=== PATIENT | male | born 1930 | race Caucasian/White ===

== ENCOUNTER → 2016-05-19 | Outpatient (CLI) | payer MEDICARE ==
[~2016-05-19] MED LIST: ACET325T38 PO; BICA50TA PO; CEFD300C3 PO; CEFU500T PO; CHOL10007 PO; CHOL20003 PO; CNC1KV IJ; DABI150C5 PO; NAPR500T3 PO; PRAV10TA PO
--- NOTE | 2016-05-22 12:40 | ECHOCARDIOGRAPHY REPORT ---
PROCEDURE PHYSICIAN: MAXIMILIANO STANLEY DATE OF PROCEDURE: 05/19/2016 TWO DIMENSIONAL ECHOCARDIOGRAM REPORT PRIMARY PHYSICIAN: Dr. Galvez OTHER PHYSICIAN: Dr. Stanley REFERRING PHYSICIAN: ORDERING PHYSICIAN: Radha Paul APRN INDICATION FOR THE PROCEDURE: Pulmonary hypertension, sinus node dysfunction, status post cardiac pacemaker. MEASUREMENTS DERIVED VALUES LV DIAMETER (LAX) NORMALS NORMALS Diastolic 3.7 (3.6-5.2) Eject. Fract. (60%+/-6%) Systolic (2.3-3.9) Diastolic Vol. % Shortening (0.22-0.42) Systolic Vol. Aortic Root 3.1 IVS THICKNESS Diastolic 0.7 (0.6-1.1) LVPW THICKNESS Diastolic 1. (0.6-1.1) LA DIAMETER Systolic 2.5 (2.1-3.7) DESCRIPTION: 2-dimensional echocardiography with normal global left ventricular systolic function with normal regional wall motion. There is no significant pericardial effusion. Doppler imaging shows trivial to mild tricuspid regurgitation. There is no Doppler evidence of any significant valvular stenosis. Pulmonary artery systolic pressure is estimated to be approximately 45 to 50 mmHg. Echodense structure in the right heart is consistent with pacemaker lead/leads. There is no evidence of significant intracardiac shunt on this transthoracic echocardiographic study. Inferior vena cava does not appear to be significantly dilated and does exhibit inspiratory collapse. CONCLUSION: 1. Normal global left ventricular systolic function with an ejection fraction of approximately 65%. 2. Trivial tricuspid regurgitation. 3. Pulmonary artery systolic pressure estimated to be 45 to 50 mmHg. 4. No evidence of significant valvular stenosis Job ID: [id number] Dictated Date: 05/22/2016 09:31:20 Cartographic Designer Date: 05/22/2016 12:32:48 / subha
== END ==
LOC: CARD 09:29
PROVIDERS: ATTEND Nurse Practitioner Family
DX: I27.2 Other secondary pulmonary hypertension (principal); I45.89 Other specified conduction disorders; I65.23 Occlusion and stenosis of bilateral carotid arteries; G47.33 Obstructive sleep apnea (adult) (pediatric); Z95.0 Presence of cardiac pacemaker
CPT/HCPCS: 93306

== ENCOUNTER 2016-05-22 14:23 | Inpatient (IN) | payer MEDICARE ==
[~2016-05-22] VITALS: Ht 162.6 cm; Wt 56.7 kg
[~2016-05-22 14:23] MED LIST changes: -BICA50TA PO; -CEFD300C3 PO; -CHOL10007 PO; -NAPR500T3 PO
[2016-05-22] MEDS ORDERED: guaiFENesin/CODEINE (ROBITUSSIN AC) 10ML UDC PO PRN (14:45)
[2016-05-22] MEDS ORDERED: HYDROcodone/APAP 5 MG/325 MG (LORTAB) TAB PO PRN (14:45)
[2016-05-22] MEDS ORDERED: ONDANSETRON 4 MG/2 ML (SDV) Z0FRAN IVP PRN (14:45)
[2016-05-22] MEDS ORDERED: LEVOFLOXACIN 750 MG/150 ML IV 150 ML IV SCH (14:45)
[2016-05-22] MEDS ORDERED: ACETAMINOPHEN 500 MG TAB (TYLENOL) PO PRN (14:45)
[2016-05-22] MEDS ORDERED: ALPRAZolam 0.25 MG (XANAX) TAB PO PRN (14:45)
[2016-05-22] MEDS ORDERED: fentaNYL INJECTION 100 MCG/2 ML AMP IVP PRN (14:45)
[2016-05-22 15:00] VITALS: BP 130/85
[2016-05-22 15:49] LABS: BASOPHILS % (AUTO) 0 % (0-10); EOSINOPHILS % (AUTO) 6 % (0-10); LYMPHOCYTES # (AUTO) 1.8 X 10^3 (1.0-4.0); LYMPHOCYTES % (AUTO) 10 % (12-44); MEAN CORPUSCULAR HEMOGLOBIN 29 PG (25-34); MEAN CORPUSCULAR HGB CONC 32 G/DL (32-36); MEAN CORPUSCULAR VOLUME 90 FL (80-99); MEAN PLATELET VOLUME 11.5 FL (7.4-10.4); MONOCYTES # (AUTO) 0.8 X 10^3 (0.0-1.0); MONOCYTES % (AUTO) 4 % (0-12); NEUTROPHILS # (AUTO) 13.9 X 10^3 (1.8-7.8); NEUTROPHILS % (AUTO) 80 % (42-75); PLATELET COUNT 275 10^3/uL (130-400); RED BLOOD COUNT 4.46 10^6/uL (4.35-5.85); WHITE BLOOD COUNT 17.5 10^3/uL (4.3-11.0)
[2016-05-22] MEDS ORDERED: CHOL10007 PO (15:49)
[2016-05-22] MEDS ORDERED: BICA50TA PO (15:49)
[2016-05-22] MEDS ORDERED: NAPR500T3 PO (15:52)
[2016-05-22 16:02] LABS: ALANINE AMINOTRANSFERASE 22 U/L (0-55); ALBUMIN 3.4 G/DL (3.2-4.5); ANION GAP 9 MMOL/L (5-14); ASPARTATE AMINO TRANSFERASE 24 U/L (5-34); BILIRUBIN,TOTAL 0.6 MG/DL (0.1-1.0); BLOOD UREA NITROGEN 18 MG/DL (7-18); BUN/CREATININE RATIO 20; CALCIUM 8.9 MG/DL (8.5-10.1); CARBON DIOXIDE 25 MMOL/L (21-32); CHLORIDE 98 MMOL/L (98-107); CREATININE SERUM 0.88 MG/DL (0.60-1.30); GFR ESTIMATED > 60; GLUCOSE 90 MG/DL (70-105); POTASSIUM 4.3 MMOL/L (3.6-5.0); SODIUM 132 MMOL/L (135-145); TOTAL PROTEIN 7.1 G/DL (6.4-8.2)
[2016-05-22 16:07] LABS: TROPONIN I < 0.30 NG/ML (<0.30)
[2016-05-22 16:14] LABS: BAND NEUTROPHILS 0 %; BASOPHILS % (MANUAL) 0 %; EOSINOPHILS % (MANUAL) 10 %; LYMPHOCYTES % (MANUAL) 12 %; NEUTROPHILS % (MANUAL) 76 %
[2016-05-22] MEDS: RT-BUDESONIDE NEBS 0.5 MG/2ML (PULMICORT) AMP INH SCH ×2 (16:20→19:23)
--- NOTE | 2016-05-22 16:31 | Diagnostic Imaging Report ---
EXAMINATION: PA and lateral views of the chest. INDICATION: Shortness of breath. FINDINGS: The lungs are hyperinflated. There is questionable nodular density in the right suprahilar region. There are prominent interstitial markings similar to prior exam of 12/04/2015 exam. No focal consolidation. The heart size is normal. No effusion or pneumothorax. The mediastinum and matthew appear unremarkable. There is a cardiac pacer seen with two cardiac leads. IMPRESSION: Findings of COPD and chronic appearing interstitial thickening. Questionable right suprahilar density is seen. CT evaluation is suggested to rule out an underlying nodule. Dictated by: Dictated on workstation # [id number]
[2016-05-22 16:35] LABS: ABG BASE EXCESS 0.3 MMOL/L (-2.5-2.5); ABG HCO3 25 MMOL/L (23-27); ABG OXYGEN SATURATION 92 % (94-100); ABG PCO2 39 MMHG (35-45); ABG PH 7.42 (7.37-7.43); ABG PO2 60 MMHG (79-93); ABG TCO2 25.8 MMOL/L (21.0-31.0)
[2016-05-22 16:36] LABS: ALLENS TEST YES-POS; PATIENT TEMP 98.9
[2016-05-22] MEDS ORDERED: CATHETER FLUSH 10 ML SYR IV PRN (16:45)
[2016-05-22] MEDS: NS IV 1000 ML 1,000 ML IV SCH (17:08)
[2016-05-22] MEDS ORDERED: PATIENT MAY USE OWN MEDS, ALL MC SCH (18:15)
[2016-05-22] MEDS: RT-ALBUTEROL/IPRATROPIUM 3 ML (DUONEB) VIAL INH SCH ×2 (19:23→23:29)
[2016-05-22] MEDS: DABIGATRAN 150 MG (PRADAXA) CAPSULE PO SCH (20:45)
[2016-05-22] MEDS: SIMvastatin 10 MG (ZOCOR) TAB PO SCH (20:45)
[2016-05-22] MEDS: CEFEPIME INJECTION 2,000 MG in NS (IVPB) 50 ML IV SCH (20:45)
[2016-05-22] MEDS: SENNA W/DOCUSATE (SENOKOT S) TABLET PO SCH (20:45)
[2016-05-22 20:54] VITALS: BP 93/51
[2016-05-22] MEDS ORDERED: NON-FORMULARY MEDICATION 1 EA EA (Pravastatin Sodium 10 MG) PO SCH (21:00)
[2016-05-23] VITALS (7 sets, daily range): BP systolic 78–108; BP diastolic 40–64
[2016-05-23] MEDS: NS IV 1000 ML 1,000 ML IV SCH ×2 (00:44→03:52)
[2016-05-23] MEDS ORDERED: NS IV 1000 ML 1,000 ML IV ONE (00:45)
[2016-05-23] MEDS: RT-ALBUTEROL/IPRATROPIUM 3 ML (DUONEB) VIAL INH SCH ×6 (01:57→22:37)
[2016-05-23 06:06] LABS: BASOPHILS % (AUTO) 0 % (0-10); EOSINOPHILS # (AUTO) 0.7 10^3/uL (0.0-0.3); EOSINOPHILS % (AUTO) 5 % (0-10); LYMPHOCYTES # (AUTO) 1.7 X 10^3 (1.0-4.0); LYMPHOCYTES % (AUTO) 13 % (12-44); MEAN CORPUSCULAR HEMOGLOBIN 29 PG (25-34); MEAN CORPUSCULAR HGB CONC 32 G/DL (32-36); MEAN CORPUSCULAR VOLUME 91 FL (80-99); MEAN PLATELET VOLUME 11.9 FL (7.4-10.4); MONOCYTES # (AUTO) 0.6 X 10^3 (0.0-1.0); MONOCYTES % (AUTO) 5 % (0-12); NEUTROPHILS # (AUTO) 9.5 X 10^3 (1.8-7.8); NEUTROPHILS % (AUTO) 76 % (42-75); PLATELET COUNT 248 10^3/uL (130-400); RED CELL DISTRIBUTION WIDTH 13.9 % (10.0-14.5); WHITE BLOOD COUNT 12.5 10^3/uL (4.3-11.0)
[2016-05-23 06:29] LABS: ALANINE AMINOTRANSFERASE 19 U/L (0-55); ALBUMIN 2.7 G/DL (3.2-4.5); ANION GAP 10 MMOL/L (5-14); ASPARTATE AMINO TRANSFERASE 23 U/L (5-34); BILIRUBIN,TOTAL 0.3 MG/DL (0.1-1.0); BLOOD UREA NITROGEN 15 MG/DL (7-18); BUN/CREATININE RATIO 19; CALCIUM 7.9 MG/DL (8.5-10.1); CARBON DIOXIDE 20 MMOL/L (21-32); CHLORIDE 106 MMOL/L (98-107); CREATININE SERUM 0.81 MG/DL (0.60-1.30); GFR ESTIMATED > 60; GLUCOSE 91 MG/DL (70-105); POTASSIUM 4.1 MMOL/L (3.6-5.0); SODIUM 136 MMOL/L (135-145); TOTAL PROTEIN 5.5 G/DL (6.4-8.2)
[2016-05-23] MEDS ORDERED: NAPROXEN 250 MG (NAPROSYN) TABLET PO PRN (07:00)
[2016-05-23] MEDS: RT-BUDESONIDE NEBS 0.5 MG/2ML (PULMICORT) AMP INH SCH ×2 (07:16→18:23)
[2016-05-23] MEDS ORDERED: IOHEXOL 350 MG/ML 100 ML (OMNIPAQUE 350) VIAL IV ONE (07:45)
[2016-05-23] MEDS ORDERED: NS 100 ML (IVPB) BAG IV ONE (07:45)
[2016-05-23] MEDS: DABIGATRAN 150 MG (PRADAXA) CAPSULE PO SCH ×2 (08:32→20:54)
[2016-05-23] MEDS: VITAMIN D3 1,000 UNITS (CHOLECALCIFEROL) TABLET PO SCH (08:32)
[2016-05-23] MEDS: SENNA W/DOCUSATE (SENOKOT S) TABLET PO SCH ×2 (08:32→20:54)
[2016-05-23] MEDS: BICALUTAMIDE 50 MG TAB PO SCH (08:33)
[2016-05-23] MEDS: CEFEPIME INJECTION 2,000 MG in NS (IVPB) 50 ML IV SCH (08:33)
--- NOTE | 2016-05-23 08:50 | Diagnostic Imaging Report ---
PROCEDURE: CT chest with contrast only. TECHNIQUE: Multiple contiguous axial images were obtained through the chest after administration of intravenous contrast. INDICATION: Right upper lobe pulmonary nodule. 75 mL of Omnipaque 350 is administered intravenously. FINDINGS: There is emphysema with diffuse interstitial thickening and scarring in the lungs. Mild bronchiectasis is seen in the lung bases. There is a right upper lobe irregular nodule measuring 1.3 cm in the right suprahilar region. There is an irregular nodular density also seen anteriorly in the right upper lobe measuring 1.3 cm. There are multiple subcentimeter nodular densities seen also in the lungs mostly in the lung bases. Given the background extensive scarring, these could be related to scarring. There is also subpleural focal consolidation in the medial aspect of the right upper lobe with maximum axial measurements of 2.5 x 1.3 cm. This could also be related to atelectasis or scarring. There are prominent bullae seen in the right lung base. The thoracic aorta is normal in caliber. The heart size is normal. There is a pacemaker with two leads seen. No pericardial effusion. There are bilateral tiny pleural effusions. Pleural parenchymal thickening and scarring in the lung apices is also noted. There is lymphadenopathy in the right hilum measuring 2.2 cm and an infracarinal lymph node measuring 1.4 cm. A mildly enlarged left hilar node measuring 1.0 cm is also seen. These measurements are all in short axis. No axillary lymphadenopathy seen. Sections of the upper abdomen demonstrate simple-appearing renal cyst in the upper pole of the left kidney. The osseous structures appear grossly unremarkable. IMPRESSION: There is background emphysema and interstitial scarring seen diffusely in the lungs with multiple nodular densities, mostly related to scarring. Most concerning, however, is an irregular nodule measuring 1.3 cm in the right upper lobe suprahilar region. There is also hilar and mediastinal lymphadenopathy. Further evaluation with PET/CT is recommended. Dictated by: Dictated on workstation # [id number]
[2016-05-23] MEDS ORDERED: NON-FORMULARY MEDICATION 1 EA EA (Cholecalciferol (Vitamin D3) (Vitamin D3) 1,000 UNIT) PO SCH (09:00)
--- NOTE | 2016-05-23 11:21 | History & Physical-Hospitalist ---
HPI History of Present Illness: HPI/Chief Complaint CC: Pneumonia HPI: This is an 85[address]WM pt of Dr. Galvez'kyle that I directly admitted by the one- call system. He presented to his office with fever of 102 at home and SOB. He recently was started Lupron for prostate CA by Dr. Chance's office but remained Pradaxa for AF so suspicion was not PE but pneumonia. Admission WBC was 17.5, today it is 12.5. Hgb from 13 to 9.7 Na+ was 132 now 136. They did call me in the middle of the night for hypotension that was asymptomatic at 0300. I gave 1L of IV fluid and increased his maintenance fluid to 125 cc's. CXR revealed likely infiltrate but there was a nodule and considering his prostate CA I obtained CT chest today that revealed emphysema with multiple nodular densities likely scarring but there is an irregular nodule in the right upper lobe. Chart Review: Reviewed all imaging scans including abdomen/pelvis CT dated 12/03/15: .9cm nodule in RLL likely ATX so no CT chest done but also reviewed bone scan dated revealing no bone mets. No prior CT chest. Dr. Gomez Review: Dr. Simon consults with Dr. Gomez regarding newly discovered lung mass. Dr. Gomez will see pt over the weekend or on Thursday. Patient Interview: Pt states that recent injection from Dr. Chance is his first. Dr. Chance has been managing pt's prostate CA alone. Pt states that he urinated this morning and has been trying to drink more water. Dr. Simon informs pt of CT chest results regarding lung mass that may be related to pt's hx of prostate CA. Dr. Simon informs pt that she has consulted with Dr. Gomez. Dr. Simon suggests a consultation with an oncologist, and pt agrees. Pt has no preference. Pt states that he quit smoking in 1982. 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 Pt's favorite instrument is the viola, although he is trained in most others as well. Pt states that BP normally runs low. Pt sees Dr. Stanley for Cardiology regularly, and he visited pt earlier today. Physical exam was stable. Pt denies need for pain meds currently. Pt was able to eat breakfast without complications. Dr. Simon informs pt that he will likely stay at [facility] over the weekend. Pt sees Dr. Gomez every 6 months regarding CPAP. Pt has an appointment with Dr. Gomez at 9:45 Thursday morning. Scribed by Mike Rodrigez under the direct supervision of Dr. Simon. 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 at [employer]) Alcohol Use: Occasionally Uses Recreational Drug Use: No Smoking Status: Former Smoker (quit in 1982) Physical Abuse Screen: No Sexual Abuse: No Recent Foreign Travel: No Contact w/other who traveled: No Recent Hopitalizations: No Recent Infectious Disease Expo: No Immunizations Up To Date Date of Pneumonia Vaccine: Jan 18, 2009 Date of Influenza Vaccine: Feb 18, 2016 Seasonal Allergies Seasonal Allergies: Yes (no medication ) Surgeries HX Surgeries: Yes Respiratory Hx Respiratory Disorders: Yes Respiratory Disorders: COPD, Emphysema, Sleep Apnea Cardiovascular Hx Cardiovascular Disorders: Yes (SINUS NODE DYSFUNCTION) Cardiac Disorders: Atrial Fibrillation, High Cholesterol, Hypertension, Irregular Heartbeat Neurological Hx Neurological Disorders: No Reproductive System Hx Reproductive Disorders: Yes (PROSTSTE SURGERY LEFT PT IMPOTENT) Genitourinary Hx Genitourinary Disorders: Yes Genitourinary Disorders: Prostate Problems (prostate cancer managed by Dr. Chance) Gastrointestinal Hx Gastrointestinal Disorders: No Musculoskeletal Hx Musculoskeletal Disorders: Yes Musculoskeletal Disorders: Chronic Back Pain Endocrine Hx Endocrine Disorders: No HEENT HX ENT Disorders: No Cancer Hx Cancer: Yes Cancer: Prostate Psychosocial Hx Psychiatric Problems: No Blood Transfusions Hx Blood Disorders: No Family Medical History Family Hx: Patient reports no known family medical history. Review of Systems Constitutional: see HPI chills dizziness fever malaise weakness EENTM: no symptoms reported Respiratory: cough short of breath wheezing Cardiovascular: no symptoms reported Gastrointestinal: no symptoms reported Genitourinary: no symptoms reported Musculoskeletal: back pain Skin: no symptoms reported Psychiatric/Neurological: Depressed All Other Systems Reviewed Negative Unless Noted: Yes Physical Exam Physical Exam Vital Signs Vital Sign - Last 12Hours 05/22/16 05/22/16 05/22/16 15:00 19:00 19:23 Temp 98.9 Pulse 80 Resp 18 B/P 130/85 Pulse Ox 96 O2 Delivery Room Air O2 Flow Rate 2.00 Capillary Refill : General Appearance: No Apparent Distress WD/WN Chronically ill Cachetic Eyes: Bilateral Eye Normal Inspection, Bilateral Eye PERRL HEENT: PERRL/EOMI Normal ENT Inspection Pharynx Normal Neck: Full Range of Motion Normal Inspection Non Tender Supple Carotid Bruit Respiratory: Chest Non Tender No Accessory Muscle Use No Respiratory Distress Crackles Decreased Breath Sounds Wheezing Cardiovascular: Regular Rate, Rhythm No Edema No Gallop No JVD No Murmur Normal Peripheral Pulses Gastrointestinal: Normal Bowel Sounds No Organomegaly No Pulsatile Mass Non Tender Soft Back: Normal Inspection No CVA Tenderness No Vertebral Tenderness Extremity: Normal Capillary Refill Normal Inspection Normal Range of Motion Non Tender No Calf Tenderness No Pedal Edema Neurologic/Psychiatric: Alert Oriented x3 No Motor/Sensory Deficits Normal Mood/Affect Skin: Normal Color Warm/Dry Lymphatic: No Adenopathy Results Results/Procedures Lab Laboratory Tests 05/22/16 15:35 05/23/16 05:44 Assessment/Plan Admission Diagnosis Assessment: Post-obstructive pneumonia with fever and leukocytosis New long nodule 1.5 cm in COPD pt previous smoker Prostate CA just recently started on Lupron AF Pacemaker Anemia Hypoxia of PaO2 60 Hyponatremia Low albumin 2.7 JERMAINE Assessment and Plan Plan: Consult Drs. Gomez and Umer Maintain IV antibiotics Maintain nebulizer treatments Maintain IV fluid Check labs in a.m. Maintain oxygen Maintain sleep apnea machine Maintain Pradaxa Clinical Quality Measures DVT/VTE Risk/Contraindication: Risk Factor Score Per Nursin RFS Level Per Nursing on Admit: 3=High NAYE SIMON DO May 23, 2016 11:21
--- NOTE | 2016-05-23 12:35 | Consultation-Cardiology ---
HPI-Cardiology Cardiology Consultation: Date of Consultation 05/23/16 Date of Admission 05-22-16 Attending Physician Naye Simon DO Admitting Physician Harrison Galvez DO Consulting Physician Khai Stanley MD HPI: Chief Complaint: Dyspnea Mr. Ma is an 85 year old admitted to 424 from the ED d/t increasing shortness of breath with associated fever and chills. He does not report any CP , palpitations, syncope or near syncope. No n/v/d. No LE edema. He reports he feels better this morning. Review of Systems-Cardiology Review of Systems Constitutional: As described under HPI Eyes: No blurred vision, No drainage, No pain, No vision change Ears/Nose/Throat: No ear discharge, No ear pain, No nasal drainage, No ulcerations Respiratory: As described under HPI Cardiovascular: As described under HPI Gastrointestinal: No constipation, No diarrhea, No nausea, No vomiting, No stool coloration changes Genitourinary: No dysuria, No discharge, No frequency, No hematuria, No urgency Skin: No rash, No skin related problems, No ulcerations Psychiatric/Neurological: No anxiety, No depression, No focal weakness, No seizure, No syncope Hematologic: No bleeding abnormalities All Other Systems Reviewed Negative Unless Noted: Yes EFO-Nwksio-Ekqttk Hx Patient Social History Marrital Status: 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 Family Medical History Family History: Patient reports no known family medical history. Allergies and Home Medications Allergies Coded Allergies: No Known Drug Allergies (Verified Allergy, Unknown, 05/08/09) Uncoded Allergies: NKDA (Allergy, Mild, 05/07/09) Home Medications Bicalutamide 50 Mg Tablet 50 MG PO DAILY (Reported) Cholecalciferol (Vitamin D3) 1,000 Unit Capsule 1,000 UNIT PO DAILY (Reported) Cyanocobalamin 1,000 Mcg/Ml Inj 1,000 MCG IJ MONTHLY (Reported) Dabigatran Etexilate Mesylate 150 Mg Capsule 150 MG PO BID (Reported) Naproxen 500 Mg Tablet 500 MG PO BID (Reported) Pravastatin Sodium 10 Mg Tablet 10 MG PO HS (Reported) CURRENTLY ON HOLD DUE TO OTHER HEALTH CONDITIONS Physical Exam-Cardiology Physical Exam Vital Signs/I&O Vital Sign - Last 12Hours 05/23/16 05/23/16 05/23/16 05/23/16 04:00 07:17 07:21 08:00 Temp 97.6 98.6 Pulse 89 99 Resp 18 22 B/P 94/57 89/46 Pulse Ox 92 88 88 94 O2 Delivery Room Air Room Air O2 Flow Rate 1.00 1.00 05/23/16 12:00 Temp 99.1 Pulse 89 Resp 20 B/P 96/50 Pulse Ox 93 O2 Delivery Room Air Intake and Output 05/23/16 00:00 Intake Total 690 ml Balance 690 ml Capillary Refill : Constitutional: appears stated ageNo apparent distress, well-developed well- nourished HEENT: PERRLNo discharge, hearing is well preserved oral hygience is goodNo ulceration, No xanthelasmas are seen Neck: No carotid bruit, carotid pulses are 2 + bilaterally Respiratory: No accessory muscle use, No respiratory distress, chest expansion is symmetric chest is bilaterally symmetric other (diminished bases bilat) Cardiovascular: regular rate-rhythm S1 and S2 Gastrointestinal: No tender, soft roundNo spleenomegaly Extremities: No clubbing, No cyanosis, No significant edema Neurologic/Psychiatric: alert oriented x 3 power is 5/5 both on sides Skin: No rash, No ulcerations Data Review Labs Laboratory Tests 05/22/16 15:30: Lactic Acid Level 1.3 05/22/16 15:35: Alanine Aminotransferase (ALT/SGPT) 22, Albumin 3.4, Alkaline Phosphatase 90, Anion Gap 9, Aspartate Amino Transf (AST/SGOT) 24, BUN/Creatinine Ratio 20, Band Neutrophils 0, Basophils # (Auto) 0.0, Basophils % (Manual) 0, Basophils (% ) (Auto) 0, Blood Morphology Comment NORMAL, Blood Urea Nitrogen 18, Calcium Level 8.9, Carbon Dioxide Level 25, Chloride Level 98, Creatinine 0.88, Eosinophils # (Auto) 1.0H, Eosinophils % (Manual) 10, Eosinophils (%) (Auto) 6, Estimat Glomerular Filtration Rate > 60, Glucose Level 90, Hematocrit 40, Hemoglobin 13.0L, Lymphocytes # (Auto) 1.8, Lymphocytes % (Manual) 12, Lymphocytes (%) (Auto) 10L, Mean Corpuscular Hemoglobin 29, Mean Corpuscular Hemoglobin Concent 32, Mean Corpuscular Volume 90, Mean Platelet Volume 11.5H, Monocytes # (Auto) 0.8, Monocytes % (Manual) 2, Monocytes (%) (Auto) 4, Neutrophils # (Auto) 13.9H, Neutrophils % (Manual) 76, Neutrophils (%) (Auto) 80H, Platelet Count 275, Potassium Level 4.3, Red Blood Count 4.46, Red Cell Distribution Width 14.0, Sodium Level 132L, Total Bilirubin 0.6, Total Protein 7.1, Troponin I < 0.30, White Blood Count 17.5H 05/22/16 16:23: Marciano Test YES-POS, Arterial Blood Base Excess 0.3, Arterial Blood HCO3 25, Arterial Blood Oxygen Saturation 92L, Arterial Blood Partial Pressure CO2 39, Arterial Blood Partial Pressure O2 60L, Arterial Blood Total CO2 25.8, Arterial Blood pH 7.42, Blood Gas Inspired Oxygen ROOM AIR, Blood Gas Patient Temperature 98.9, Blood Gas Puncture Site LT RAD, Blood Gas Ventilator Setting NO 05/23/16 05:44: Alanine Aminotransferase (ALT/SGPT) 19, Albumin 2.7L, Alkaline Phosphatase 72, Anion Gap 10, Aspartate Amino Transf (AST/SGOT) 23, BUN/Creatinine Ratio 19, Basophils # (Auto) 0.0, Basophils (%) (Auto) 0, Blood Urea Nitrogen 15, Calcium Level 7.9L, Carbon Dioxide Level 20L, Chloride Level 106, Creatinine 0.81, Eosinophils # (Auto) 0.7H, Eosinophils (%) (Auto) 5, Estimat Glomerular Filtration Rate > 60, Glucose Level 91, Hematocrit 30L, Hemoglobin 9.7#L, Lymphocytes # (Auto) 1.7, Lymphocytes (%) (Auto) 13, Mean Corpuscular Hemoglobin 29, Mean Corpuscular Hemoglobin Concent 32, Mean Corpuscular Volume 91, Mean Platelet Volume 11.9H, Monocytes # (Auto) 0.6, Monocytes (%) (Auto) 5, Neutrophils # (Auto) 9.5H, Neutrophils (%) (Auto) 76H, Platelet Count 248, Potassium Level 4.1, Red Blood Count 3.30L, Red Cell Distribution Width 13.9, Sodium Level 136, Total Bilirubin 0.3, Total Protein 5.5L, White Blood Count 12.5H Radiology NAME: GERMAN MA [facility] REC#: [id number] PT STATUS: ADM IN : 1930 PHYSICIAN: NAYE SIMON DO ADMIT DATE: 05/22/16 Signed Date of Exam: 05/23/16 CT CHEST W PROCEDURE: CT chest with contrast only. TECHNIQUE: Multiple contiguous axial images were obtained through the chest after administration of intravenous contrast. INDICATION: Right upper lobe pulmonary nodule. 75 mL of Omnipaque 350 is administered intravenously. FINDINGS: There is emphysema with diffuse interstitial thickening and scarring in the lungs. Mild bronchiectasis is seen in the lung bases. There is a right upper lobe irregular nodule measuring 1.3 cm in the right suprahilar region. There is an irregular nodular density also seen anteriorly in the right upper lobe measuring 1.3 cm. There are multiple subcentimeter nodular densities seen also in the lungs mostly in the lung bases. Given the background extensive scarring, these could be related to scarring. There is also subpleural focal consolidation in the medial aspect of the right upper lobe with maximum axial measurements of 2.5 x 1.3 cm. This could also be related to atelectasis or scarring. There are prominent bullae seen in the right lung base. The thoracic aorta is normal in caliber. The heart size is normal. There is a pacemaker with two leads seen. No pericardial effusion. There are bilateral tiny pleural effusions. Pleural parenchymal thickening and scarring in the lung apices is also noted. There is lymphadenopathy in the right hilum measuring 2.2 cm and an infracarinal lymph node measuring 1.4 cm. A mildly enlarged left hilar node measuring 1.0 cm is also seen. These measurements are all in short axis. No axillary lymphadenopathy seen. Sections of the upper abdomen demonstrate simple-appearing renal cyst in the upper pole of the left kidney. The osseous structures appear grossly unremarkable. IMPRESSION: There is background emphysema and interstitial scarring seen diffusely in the lungs with multiple nodular densities, mostly related to scarring. Most concerning, however, is an irregular nodule measuring 1.3 cm in the right upper lobe suprahilar region. There is also hilar and mediastinal lymphadenopathy. Further evaluation with PET/CT is recommended. Dictated by: Dictated on workstation # [id number] Dict: 05/23/16 0831 Trans: 05/23/16 0944 [id number] Interpreted by: EDWIN SERRANO MD Electronically signed by:EDWIN SERRANO MD 05/23/16 0946 A/P-Cardiology Assessment/Admission Diagnosis Pneumonia - management per medical services Irregular nodule measuring 1.3 cm in the right upper lobe suprahilar region. There is also hilar and mediastinal lymphadenopathy seen on CT of the chest . Management per medical services Sinus node dysfunction. Some pacemaker interrogations have been suggestive of brief runs of atrial flutter/fib Symptomatic bradycardia, resolved following implantation of dual-chamber pacemaker in April 2009. The pacemaker has reached NUVIA per interrogation and pulse generator change out was carried out on 12-04-15 No evidence of any significant myocardial ischemia or infarction on myocardial perfusion imaging of 06/11/2009. Left ventricular systolic function was normal with an ejection fraction of 73%. Moderate pulmonary HTN, PASP 50-55 mmHg on echo of November 2013, of undetermined etiology. Repeat echo of 05/22/14 showed LVEF 60% and PASP 60 mmHg and mod TR and mild MR. This is being followed by Dr Gomez Chronically high atrial capture threshold . Hyperlipidemia, being treated with pravastatin Mild carotid arterial disease on ultrasonography of November 2015. OAC with dabigatran for stroke prophylaxis Obstructive sleep apnea syndrome followed by Dr Gomez. Pt on CPAP Prostate cancer being managed by Dr. Chance Discussion and Recomendations Cardiac status clinically stable. Management of pneumonia per medication services. Lung nodule seen on CT of the chest to be managed by medical services. Continue current cardiac regimen. Monitor lab. Further recommendations will be based on his hospital course. We would like to thank Dr. Simon for this consult. This consult is being scribed by MICHAEL Rock on behalf of Dr. Stanley after examination and discussion regarding plan of care. Clinical Quality Measures DVT/VTE Risk/Contraindication: Risk Factor Score Per Nursin RFS Level Per Nursing on Admit: 3=High Physician Assessment Physician Assessment Lungs: fair to good air entry Cor: reg A&R As documented in our note above Complex management due to multiple comorbidities I had a detailed discussion with him and answered questions MARYCRUZ THOMAS PAINTING WORKER May 23, 2016 12:35 KHAI STANLEY MD FACP FAC CCDS May 23, 2016 14:49
[2016-05-23] MEDS: NS IV SCH ×4 (12:45→20:57)
[2016-05-23] MEDS: KCL IV SCH ×4 (12:45→20:57)
[2016-05-23] MEDS: SIMvastatin 10 MG (ZOCOR) TAB PO SCH (20:54)
[2016-05-24] VITALS: BP 91/51
[2016-05-24] MEDS: RT-ALBUTEROL/IPRATROPIUM 3 ML (DUONEB) VIAL INH SCH ×6 (02:26→22:01)
[2016-05-24 04:00] VITALS: BP 104/64
[2016-05-24 05:36] LABS: BASOPHILS % (AUTO) 0 % (0-10); EOSINOPHILS # (AUTO) 1.1 10^3/uL (0.0-0.3); EOSINOPHILS % (AUTO) 12 % (0-10); LYMPHOCYTES # (AUTO) 1.7 X 10^3 (1.0-4.0); LYMPHOCYTES % (AUTO) 17 % (12-44); MEAN CORPUSCULAR HEMOGLOBIN 29 PG (25-34); MEAN CORPUSCULAR HGB CONC 32 G/DL (32-36); MEAN CORPUSCULAR VOLUME 90 FL (80-99); MEAN PLATELET VOLUME 11.8 FL (7.4-10.4); MONOCYTES # (AUTO) 0.6 X 10^3 (0.0-1.0); MONOCYTES % (AUTO) 6 % (0-12); NEUTROPHILS # (AUTO) 6.5 X 10^3 (1.8-7.8); NEUTROPHILS % (AUTO) 65 % (42-75); PLATELET COUNT 227 10^3/uL (130-400); RED BLOOD COUNT 3.67 10^6/uL (4.35-5.85); RED CELL DISTRIBUTION WIDTH 14.2 % (10.0-14.5); WHITE BLOOD COUNT 9.9 10^3/uL (4.3-11.0)
[2016-05-24 05:56] LABS: ALANINE AMINOTRANSFERASE 21 U/L (0-55); ALBUMIN 2.6 G/DL (3.2-4.5); ANION GAP 10 MMOL/L (5-14); ASPARTATE AMINO TRANSFERASE 25 U/L (5-34); BILIRUBIN,TOTAL 0.3 MG/DL (0.1-1.0); BLOOD UREA NITROGEN 13 MG/DL (7-18); BUN/CREATININE RATIO 18; CALCIUM 7.7 MG/DL (8.5-10.1); CARBON DIOXIDE 21 MMOL/L (21-32); CHLORIDE 108 MMOL/L (98-107); CREATININE SERUM 0.74 MG/DL (0.60-1.30); GFR ESTIMATED > 60; GLUCOSE 86 MG/DL (70-105); POTASSIUM 3.9 MMOL/L (3.6-5.0); SODIUM 139 MMOL/L (135-145); TOTAL PROTEIN 5.4 G/DL (6.4-8.2)
[2016-05-24] MEDS: NS IV SCH ×4 (07:07→22:03)
[2016-05-24] MEDS: KCL IV SCH ×4 (07:07→22:03)
[2016-05-24] MEDS: RT-BUDESONIDE NEBS 0.5 MG/2ML (PULMICORT) AMP INH SCH ×2 (07:53→18:53)
[2016-05-24 08:00] VITALS: BP 98/56
[2016-05-24] MEDS: VITAMIN D3 1,000 UNITS (CHOLECALCIFEROL) TABLET PO SCH (09:26)
[2016-05-24] MEDS: CEFEPIME INJECTION 2,000 MG in NS (IVPB) 50 ML IV SCH (09:26)
[2016-05-24] MEDS: DABIGATRAN 150 MG (PRADAXA) CAPSULE PO SCH ×2 (09:26→20:56)
[2016-05-24] MEDS: SENNA W/DOCUSATE (SENOKOT S) TABLET PO SCH ×2 (09:26→20:56)
[2016-05-24] MEDS: BICALUTAMIDE 50 MG TAB PO SCH (09:26)
[2016-05-24] MEDS: LEVOFLOXACIN 750 MG/150 ML IV 150 ML IV SCH (11:57)
[2016-05-24 12:00] VITALS: BP 98/48
[2016-05-24 16:00] VITALS: BP 95/52
--- NOTE | 2016-05-24 16:52 | Progress Note-Cardiology ---
Cardiology SOAP Progress Note Subjective: Feels a little less short of breath and a little stronger Denies cp or palp or syncope Objective: I&O/Vital Signs Vital Sign - Last 12Hours 05/24/16 05/24/16 05/24/16 05/24/16 07:00 07:53 07:55 08:00 Pulse 87 Pulse Ox 93 93 94 O2 Delivery Room Air O2 Flow Rate 1.00 1.00 05/24/16 05/24/16 05/24/16 05/24/16 08:00 11:00 12:00 13:00 Temp 98.3 98.1 Pulse 88 84 83 Resp 18 16 B/P 98/56 98/48 Pulse Ox 94 92 95 O2 Delivery Room Air Room Air O2 Flow Rate 1.00 05/24/16 14:43 Pulse Ox 98 O2 Flow Rate 1.00 Intake and Output 05/24/16 00:00 Intake Total 3000 ml Balance 3000 ml Weight (Pounds): 125 Weight (Ounces): 0.0 Weight (Calculated Kilograms): 56.634050 Constitutional: appears stated ageNo apparent distress, well-developed well- nourished Respiratory: No accessory muscle use, No respiratory distress, chest expansion is symmetric chest is bilaterally symmetric other (diminished bases bilat) Cardiovascular: regular rate-rhythm S1 and S2 Gastrointestional: No tender, soft roundNo spleenomegaly Extremities: No clubbing, No cyanosis, No significant edema Neurologic/Psychiatric: alert oriented x 3 power is 5/5 both on sides Skin: No rash, No ulcerations Results/Procedures: Labs Laboratory Tests 05/24/16 05:00: Alanine Aminotransferase (ALT/SGPT) 21, Albumin 2.6L, Alkaline Phosphatase 73, Anion Gap 10, Aspartate Amino Transf (AST/SGOT) 25, BUN/Creatinine Ratio 18, Basophils # (Auto) 0.0, Basophils (%) (Auto) 0, Blood Urea Nitrogen 13, Calcium Level 7.7L, Carbon Dioxide Level 21, Chloride Level 108H, Creatinine 0.74, Eosinophils # (Auto) 1.1H, Eosinophils (%) (Auto) 12H, Estimat Glomerular Filtration Rate > 60, Glucose Level 86, Hematocrit 33L, Hemoglobin 10.7L, Lymphocytes # (Auto) 1.7, Lymphocytes (%) (Auto) 17, Mean Corpuscular Hemoglobin 29, Mean Corpuscular Hemoglobin Concent 32, Mean Corpuscular Volume 90, Mean Platelet Volume 11.8H, Monocytes # (Auto) 0.6, Monocytes (%) (Auto) 6, Neutrophils # (Auto) 6.5, Neutrophils (%) (Auto) 65, Platelet Count 227, Potassium Level 3.9, Red Blood Count 3.67L, Red Cell Distribution Width 14.2, Sodium Level 139, Total Bilirubin 0.3, Total Protein 5.4L, White Blood Count 9.9 Microbiology 05/22/16 Blood Culture - Preliminary, Resulted No growth Laboratory Tests 05/23/16 05:44 05/24/16 05:00 A/P: Assessment: Pneumonia - management per medical services Irregular nodule measuring 1.3 cm in the right upper lobe suprahilar region. There is also hilar and mediastinal lymphadenopathy seen on CT of the chest . Management per medical services Sinus node dysfunction. Some pacemaker interrogations have been suggestive of brief runs of atrial flutter/fib Symptomatic bradycardia, resolved following implantation of dual-chamber pacemaker in April 2009. The pacemaker has reached NUVIA per interrogation and pulse generator change out was carried out on 12-04-15 No evidence of any significant myocardial ischemia or infarction on myocardial perfusion imaging of 06/11/2009. Left ventricular systolic function was normal with an ejection fraction of 73%. Moderate pulmonary HTN, PASP 50-55 mmHg on echo of November 2013, of undetermined etiology. Repeat echo of 05/22/14 showed LVEF 60% and PASP 60 mmHg and mod TR and mild MR. This is being followed by Dr Gomez Chronically high atrial capture threshold . Hyperlipidemia, being treated with pravastatin Mild carotid arterial disease on ultrasonography of November 2015. OAC with dabigatran for stroke prophylaxis Obstructive sleep apnea syndrome followed by Dr Gomez. Pt on CPAP Prostate cancer being managed by Dr. Chance Plan: * D/c tele * Continue to monitor clinically MAXIMILIANO CRAIG MD FACP [facility] May 24, 2016 16:52
--- NOTE | 2016-05-24 17:11 | Progress Note-Hospitalist ---
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 I have known him for many years. He was admitted at this time with fever and leukocytosis. Subsequent to that chest x-ray shows diffuse abnormalities with bullae in all lobes. In addition there is a nodule noted on CT scan with what appears to be a postobstructive pneumonia. He is initial white count was 17,[address] SARKAR was to see the patient. His consult is pending. The patient reports he is actually feeling quite a good deal better at this time. Physical exam: He is sitting up reading a [employer] novel. His color is good. Lungs reveal distant breath sounds. He actually exhibits some pursed lip breathing. CV is regular. Extremities show no edema. Impression: Pneumonia with a pulmonary nodule suggesting postobstructive pneumonia. Diffuse interstitial lung disease. Plan: Continue present antibiotics Labs FREDDIE PERRY MD May 24, 2016 17:11 05/24/16 05:00 FREDDIE PERRY MD May 24, 2016 17:11
[2016-05-24] MEDS: SIMvastatin 10 MG (ZOCOR) TAB PO SCH (20:57)
[2016-05-25] VITALS: BP 111/68
[2016-05-25] MEDS: RT-ALBUTEROL/IPRATROPIUM 3 ML (DUONEB) VIAL INH SCH ×6 (02:11→22:10)
[2016-05-25] MEDS: RT-BUDESONIDE NEBS 0.5 MG/2ML (PULMICORT) AMP INH SCH ×2 (06:24→18:15)
[2016-05-25 08:00] VITALS: BP 102/53
[2016-05-25] MEDS: NS IV SCH ×4 (09:52→22:15)
[2016-05-25] MEDS: KCL IV SCH ×4 (09:52→22:15)
[2016-05-25] MEDS: DABIGATRAN 150 MG (PRADAXA) CAPSULE PO SCH ×2 (09:53→20:19)
[2016-05-25] MEDS: VITAMIN D3 1,000 UNITS (CHOLECALCIFEROL) TABLET PO SCH (09:53)
[2016-05-25] MEDS: CEFEPIME INJECTION 2,000 MG in NS (IVPB) 50 ML IV SCH (09:53)
[2016-05-25] MEDS: SENNA W/DOCUSATE (SENOKOT S) TABLET PO SCH ×2 (09:54→20:19)
[2016-05-25] MEDS: BICALUTAMIDE 50 MG TAB PO SCH (09:55)
--- NOTE | 2016-05-25 13:17 | Progress Note-Standard ---
Standard Progress Note Progress Notes/Assess & Plan Progress/Assessment & Plan 85-year-old male admitted with pneumonia and on broad spectrum antibiotics. CT scan of the chest showing significant emphysematous changes and small pulmonary nodules. A right upper lobe soft tissue nodule with the right hilar and subcarinal lymphadenopathy was suspicious for a malignancy. I had dictated a consultation on Thursday05/23/2016 but this has not been transcribed. My recommendation is to continue the full course of antibiotics to treat the pneumonia. Approximately one to 2 weeks after this I will schedule him for a PET CT scan to evaluate the pulmonary nodule and lymphadenopathy. If they are hypermetabolic, this will need bronchoscopy with the EBUS and biopsy. The PET/ CT scan and the bronchoscopy could be done on an outpatient basis. I would like to see the patient on an outpatient basis after the PET/CT scan. BHAVESH SARKAR May 25, 2016 13:17
--- NOTE | 2016-05-25 13:20 | Progress Note-Hospitalist ---
Standard Progress Note Progress Notes/Assess & Plan Date Seen 05/25/16 Diagnosis Assessment: Post-obstructive pneumonia with fever and leukocytosis New long nodule 1.5 cm in COPD pt previous smoker Prostate CA just recently started on Lupron AF Pacemaker Anemia Hypoxia of PaO2 60 Hyponatremia Low albumin 2.7 JERMAINE Assess & Plan/Chief Complaint The patient is alert and engaging. He continues to improve. He is sitting up in the room and walks to the bathroom. His cough has minimized. He is afebrile. Physical exam: Color is good. Lungs are distant but clear. CV is regular. Extremities show no pedal edema Impression: Pneumonia, improving 2.pulmonary nodule. 3.bilateral multilobar emphysematous bullae. 3.history of prosthetic carcinoma Plan: Complete IV antibiotic course. Plan PET scan under supervision of Dr. Owusu for approximately 2 weeks Labs Laboratory Tests 05/24/16 05:00 FREDDIE PERRY MD May 25, 2016 13:20
--- NOTE | 2016-05-25 15:35 | Progress Note-Cardiology ---
Cardiology SOAP Progress Note Subjective: Shortness of breath is improving He denies cp or palp or syncope Objective: I&O/Vital Signs Vital Sign - Last 12Hours 05/25/16 05/25/16 05/25/16 05/25/16 06:25 06:29 08:00 08:00 Temp 97.4 Pulse 90 Resp 16 B/P 102/53 Pulse Ox 94 99 94 94 O2 Delivery Room Air Room Air O2 Flow Rate 2.00 2.00 05/25/16 05/25/16 10:25 14:23 Pulse Ox 94 92 O2 Flow Rate 2.00 Intake and Output 05/25/16 00:00 Intake Total 2245 ml Balance 2245 ml Weight (Pounds): 125 Weight (Ounces): 0.0 Weight (Calculated Kilograms): 56.092842 Constitutional: appears stated ageNo apparent distress, well-developed well- nourished Respiratory: No accessory muscle use, No respiratory distress, chest expansion is symmetric chest is bilaterally symmetric other (diminished bases bilat) Cardiovascular: regular rate-rhythm S1 and S2 Gastrointestional: No tender, soft roundNo spleenomegaly Extremities: No clubbing, No cyanosis, No significant edema Neurologic/Psychiatric: alert oriented x 3 power is 5/5 both on sides Skin: No rash, No ulcerations Results/Procedures: Labs Microbiology 05/22/16 Blood Culture - Preliminary, Resulted No growth Laboratory Tests 05/24/16 05:00 A/P: Assessment: Pneumonia - management per medical services Irregular nodule measuring 1.3 cm in the right upper lobe suprahilar region. There is also hilar and mediastinal lymphadenopathy seen on CT of the chest . This is being managed by Dr Sánchez and Dr Owusu Sinus node dysfunction. Some pacemaker interrogations have been suggestive of brief runs of atrial flutter/fib Symptomatic bradycardia, resolved following implantation of dual-chamber pacemaker in April 2009. The pacemaker has reached NUVIA per interrogation and pulse generator change out was carried out on 12-04-15 No evidence of any significant myocardial ischemia or infarction on myocardial perfusion imaging of 06/11/2009. Left ventricular systolic function was normal with an ejection fraction of 73%. Moderate pulmonary HTN, PASP 50-55 mmHg on echo of November 2013, of undetermined etiology. Repeat echo of 2/2/15 showed LVEF 60% and PASP 60 mmHg and mod TR and mild MR. This is being followed by Dr Gomez Chronically high atrial capture threshold . Hyperlipidemia, being treated with pravastatin Mild carotid arterial disease on ultrasonography of November 2015. OAC with dabigatran for stroke prophylaxis Obstructive sleep apnea syndrome followed by Dr Gomez. Pt on CPAP Prostate cancer being managed by Dr. Chance Plan: * Continue to monitor clinically MAXIMILIANO CRAIG MD FACP [facility] May 25, 2016 15:35
[2016-05-25 16:00] VITALS: BP 93/53
[2016-05-25] MEDS: SIMvastatin 10 MG (ZOCOR) TAB PO SCH (20:19)
[2016-05-26] VITALS: BP 118/69
--- NOTE | 2016-05-26 00:51 | CONSULTATION REPORT ---
DATE OF CONSULTATION: 05/23/2016 REFERRING PHYSICIAN: Naye Alex D.O. PRIMARY PHYSICIAN: Harrison Galvez D.O. The patient is admitted to Room 424. IMPRESSION: 1. Pneumonia with fever and leukocytosis currently on broad spectrum IV antibiotics. 2. Right upper lobe pulmonary nodule, with right hilar and subcarinal lymphadenopathy in a previous smoker with COPD. Need to rule out primary lung malignancy. 3. History of prostate cancer, status post radical retropubic prostatectomy in 1998 with a recent elevation in PSA and started on hormonal therapy. 4. Atrial fibrillation with symptomatic bradycardia, status post pacemaker insertion and on chronic anticoagulation for stroke prophylaxis. RECOMMENDATIONS: 1. Continue broad spectrum antibiotics and treat the pneumonia as you are doing. 2. Once the patient is discharged, approximately 1 to 2 weeks later, schedule a PET CT scan for evaluation of the right upper lobe nodule and lymphadenopathy. 3. If the PET scan is abnormal with hypermetabolic nodules and lymphadenopathy, the patient would need a biopsy preferably with bronchoscopy and EBUS. 4. Continue management of COPD and prostate cancer as you are doing. BRIEF HISTORY: Mr. Jerome is an 85-year-old male who was admitted to the hospital with shortness of breath and temperature spike of 102 degrees Fahrenheit. The patient had work-up with the chest imaging which was consistent with probable pneumonia. He was started on broad spectrum antibiotics since yesterday and is starting to feel better. The CT scan of the chest did show a right upper lobe nodule along with right hilar and subcarinal lymphadenopathy. The patient has had small nodules in the lower lung santiago, which was noted before and is unchanged. Because of the possibility of a lung neoplasm, medical oncology consultation was obtained for further recommendations. PAST MEDICAL HISTORY: Significant for prostate cancer the patient underwent radical retropubic prostatectomy in 1998. He had been on surveillance and had elevated PSA level recently. He was started on hormonal therapy with Lupron. He has history of atrial fibrillation and symptomatic bradycardia and had a pacemaker placed a few years ago. He is also on chronic anticoagulation for stroke prophylaxis. He was diagnosed with pulmonary hypertension and had pulmonary evaluation with diagnosis of obstructive sleep apnea. He is on a CPAP machine at night. PRIOR SURGERIES: Include: 1. Tonsillectomy and adenoidectomy at the age of 9 years. 2. Bilateral inguinal hernia repair. 3. Radical retropubic prostatectomy in 1998. SOCIAL HISTORY: The patient is and lives in [place], [place]. He has 2 children, a son who lives in [facility] and the daughter who lives in [place], [place]. The patient has worked at [employer] since 1969 in the [place] department and is still continuing to work there. He gives 25 pack-year history of tobacco use, but quit more than 30 years ago. He denied any significant alcohol or recreational drug use. FAMILY HISTORY: Significant for his sister who was diagnosed with breast cancer while in her late 50s and a brother who was diagnosed with non-Hodgkin's lymphoma while in his late 60s. No other malignancies in the family that the patient knows of. His father of pulmonary embolism. PHYSICAL EXAMINATION: Today show an elderly male, awake, and oriented and does not appear in any acute distress. VITAL SIGNS: Temperature was 99.7, pulse rate of 88, respiratory rate 20, blood pressure 92/51 with oxygen saturation of 91% on 1 to 2 liters by nasal cannula. HEENT: Normocephalic, extraocular muscles intact. Conjunctiva pink. Oral mucosa moist without lesions. NECK: Supple with no JVD. No cervical, supraclavicular, or axillary lymphadenopathy palpable. CHEST EXAM: Showed left-sided pacemaker present. LUNGS: With slightly diminished breath sounds bilaterally without wheezes or rales. Occasional rhonchi heard. CARDIOVASCULAR EXAM: Regular in rate and rhythm with a rare missed beat. No murmurs or gallops heard. ABDOMEN: Soft, nontender with no hepatosplenomegaly or other masses palpable. EXTREMITIES: Showed no edema. NEUROLOGICAL EXAM: Grossly intact without focal motor deficits noted. LABORATORY: CBC done today showed WBC 12.5, hemoglobin 9.7, platelet count 248,000 with neutrophil count of 9.5. CBC done yesterday showed WBC 17.5 and neutrophil count of 13.9. Hemoglobin was 13. Chemistry panel showed relatively normal electrolytes. BUN was 15 and creatinine 0.81 with a GFR more than 60 mL per minute. Liver function studies were within normal limits except albumin level of 2.7. Blood cultures done yesterday showed no growth so far. CT scan of the chest done today showed background emphysema and interstitial scarring diffusely in the lungs with multiple nodular densities, most likely related to scarring. There is an irregular nodule measuring 1.3 cm in the right upper lobe suprahilar region, which is concerning. There was also hilar and mediastinal lymphadenopathy. Follow-up evaluation with PET CT scan was recommended. Thank you for allowing me to participate in this patient's care. I will follow the patient with you and make appropriate recommendations. Job ID: [id number] Dictated Date: 05/23/2016 16:12:36 Marketing Research Intern Date: 05/26/2016 00:34:30/santiago LEVI
[2016-05-26] MEDS: RT-ALBUTEROL/IPRATROPIUM 3 ML (DUONEB) VIAL INH SCH ×3 (02:25→11:45)
--- NOTE | 2016-05-26 06:28 | Pulmonary Consultation ---
History of Present Illness History of Present Illness Date of Consultation 05/26/16 06:22 Date of Admission History of Present Illness 85yo with hx of COPD presented as direct admit from Dr. Galvez's office secondary to fever of 102 and SOB. He has been recently diagnosed with prostate cancer and started on Lupron by Dr. Chance. He is currently on Pradaxa secondary to AF. CT scan was done secondary to SOB and showed lung nodule RUL. I am consulted for pulmonary management. Allergies and Home Medications Allergies Coded Allergies: No Known Drug Allergies (Verified Allergy, Unknown, 05/08/09) Uncoded Allergies: NKDA (Allergy, Mild, 05/07/09) Home Medications Bicalutamide 50 Mg Tablet 50 MG PO DAILY (Reported) Cholecalciferol (Vitamin D3) 1,000 Unit Capsule 1,000 UNIT PO DAILY (Reported) Cyanocobalamin 1,000 Mcg/Ml Inj 1,000 MCG IJ MONTHLY (Reported) Dabigatran Etexilate Mesylate 150 Mg Capsule 150 MG PO BID (Reported) Naproxen 500 Mg Tablet 500 MG PO BID (Reported) Pravastatin Sodium 10 Mg Tablet 10 MG PO HS (Reported) CURRENTLY ON HOLD DUE TO OTHER HEALTH CONDITIONS Past [id number]-[id number]-Lmwusa Hx Patient Social History Alcohol Use: Occasionally Uses Recreational Drug Use: No Smoking Status: Former Smoker (quit in 1982) Recent Foreign Travel: No Contact w/Someone Who Travel: No Recent Infectious Disease Expo: No Recent Hopitalizations: No Physical Abuse Screen: No Sexual Abuse: No Immunizations Up To Date PED Vaccines UTD: No Date of Pneumonia Vaccine: Jan 18, 2009 Date of Influenza Vaccine: Feb 18, 2016 Seasonal Allergies Seasonal Allergies: Yes (no medication ) Surgeries HX Surgeries: Yes Respiratory Hx Respiratory Disorders: Yes Respiratory Disorders: Pneumonia, Sleep Apnea Cardiovascular Hx Cardiac Disorders: Yes (SINUS NODE DYSFUNCTION) Cardiac Disorders: Atrial Fibrillation, High Cholesterol, Hypertension, Irregular Heartbeat Neurological Hx Neurological Disorders: No Reproductive System Hx Reproductive Disorders: Yes (PROSTSTE SURGERY LEFT PT IMPOTENT) Genitourinary Hx Genitourinary Disorders: Yes Genitourinary Disorders: Prostate Problems (prostate cancer managed by Dr. Chance) Gastrointestinal Hx Gastrointestinal Disorders: No Musculoskeletal Hx Musculoskeletal Disorders: Yes Musculoskeletal Disorders: Chronic Back Pain Endocrine Hx Endocrine Disorders: No HEENT HX ENT Disorders: No Cancer Hx Cancer: Yes Cancer: Prostate Psychosocial Hx Psychiatric Problems: No Blood Transfusions Hx Blood Disorders: No Family Medical History Family Medial History: Patient reports no known family medical history. Exam Exam Vital Signs Date Time Temp Pulse Resp B/P Pulse Ox O2 Delivery O2 Flow Rate FiO2 05/26/16 02:25 93 2.00 05/26/16 00:00 97.3 93 20 118/69 94 Room Air 05/25/16 22:11 91 2.00 05/25/16 20:05 94 Room Air 05/25/16 18:18 2.00 05/25/16 18:15 90 2.00 05/25/16 16:00 96.5 92 16 93/53 97 Room Air 05/25/16 14:23 92 05/25/16 10:25 94 2.00 05/25/16 08:00 97.4 90 16 102/53 94 Room Air 05/25/16 08:00 94 Room Air 05/25/16 06:29 99 2.00 05/25/16 06:25 94 2.00 I & O 05/26/16 07:00 Intake Total 2100 ml Balance 2100 ml General Appearance: No Apparent Distress WD/WN Chronically ill Cachetic HEENT: PERRL/EOMI Normal ENT Inspection Pharynx Normal Neck: Full Range of Motion Normal Inspection Non Tender Supple Carotid Bruit Respiratory: Chest Non Tender No Accessory Muscle Use No Respiratory Distress Crackles Decreased Breath Sounds Wheezing Cardiovascular: Regular Rate, Rhythm No Edema No Gallop No JVD No Murmur Normal Peripheral Pulses Extremity: Normal Capillary Refill Normal Inspection Normal Range of Motion Non Tender No Calf Tenderness No Pedal Edema Neurologic/Psychiatric: Alert Oriented x3 No Motor/Sensory Deficits Normal Mood/Affect Skin: Normal Color Warm/Dry Lymphatic: No Adenopathy Assessment/Plan Assessment/Plan RUL 1.5cm lung nodule with mediastinal lymphadenopathy -Check out patient PET scan Recently diagnosed prostate cancer Pneumonia - improving with Abx AF -pt is on anitcoagulation JERMAINE -He follows with me on CPAP therapy Clinical Quality Measures DVT/VTE Risk/Contraindication: Risk Factor Score Per Nursin RFS Level Per Nursing on Admit: 3=High RAINA MARC DO May 26, 2016 06:28
[2016-05-26] MEDS: RT-BUDESONIDE NEBS 0.5 MG/2ML (PULMICORT) AMP INH SCH (06:59)
[2016-05-26 08:00] VITALS: BP 108/58
[2016-05-26] MEDS: NS IV SCH ×2 (08:44)
[2016-05-26] MEDS: DABIGATRAN 150 MG (PRADAXA) CAPSULE PO SCH (08:44)
[2016-05-26] MEDS: KCL IV SCH ×2 (08:44)
[2016-05-26] MEDS: SENNA W/DOCUSATE (SENOKOT S) TABLET PO SCH (08:45)
[2016-05-26] MEDS: BICALUTAMIDE 50 MG TAB PO SCH (08:45)
[2016-05-26] MEDS: VITAMIN D3 1,000 UNITS (CHOLECALCIFEROL) TABLET PO SCH (08:45)
[2016-05-26] MEDS: CEFEPIME INJECTION 2,000 MG in NS (IVPB) 50 ML IV SCH (08:46)
[2016-05-26 08:50] VITALS: BP 108/58
--- NOTE | 2016-05-26 10:32 | Discharge Summary-Hospitalist ---
Diagnosis/Chief Complaint Date of Admission May 22, 2016 at 16:06 Date of Discharge Admission Diagnosis Assessment: Post-obstructive pneumonia with fever and leukocytosis New long nodule 1.5 cm in COPD pt previous smoker Prostate CA just recently started on Lupron AF Pacemaker Anemia Hypoxia of PaO2 60 Hyponatremia Low albumin 2.7 JERMAINE Discharge Diagnosis Assessment: Post-obstructive pneumonia with fever and leukocytosis New long nodule 1.5 cm in COPD pt previous smoker Prostate CA just recently started on Lupron AF Pacemaker Anemia Hypoxia of PaO2 60 Hyponatremia Low albumin 2.7 JERMAINE Plan: Consult Drs. Gomez and Umer Maintain IV antibiotics Maintain nebulizer treatments Maintain IV fluid Check labs in a.m. Maintain oxygen Maintain sleep apnea machine Maintain Pradaxa Reason Hospital Visit/Course CC: Pneumonia HPI: This is an 85yoWM pt of Dr. Galvez'kyle that I directly admitted by the one- call system. He presented to his office with fever of 102 at home and SOB. He recently was started Lupron for prostate CA by Dr. Chance's office but remained Pradaxa for AF so suspicion was not PE but pneumonia. Admission WBC was 17.5, today it is 12.5. Hgb from 13 to 9.7 Na+ was 132 now 136. They did call me in the middle of the night for hypotension that was asymptomatic at 0300. I gave 1L of IV fluid and increased his maintenance fluid to 125 cc's. CXR revealed likely infiltrate but there was a nodule and considering his prostate CA I obtained CT chest today that revealed emphysema with multiple nodular densities likely scarring but there is an irregular nodule in the right upper lobe. Chart Review: Reviewed all imaging scans including abdomen/pelvis CT dated 12/03/15: .9cm nodule in RLL likely ATX so no CT chest done but also reviewed bone scan dated revealing no bone mets. No prior CT chest. Dr. Gomez Review: Dr. Simon consults with Dr. Gomez regarding newly discovered lung mass. Dr. Gomez will see pt over the weekend or on Thursday. Patient Interview: Pt states that recent injection from Dr. Chance is his first. Dr. Chance has been managing pt's prostate CA alone. Pt states that he urinated this morning and has been trying to drink more water. Dr. Simon informs pt of CT chest results regarding lung mass that may be related to pt's hx of prostate CA. Dr. Simon informs pt that she has consulted with Dr. Gomez. Dr. Simon suggests a consultation with an oncologist, and pt agrees. Pt has no preference. Pt states that he quit smoking in 1982. 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 Pt's favorite instrument is the viola, although he is trained in most others as well. Pt states that BP normally runs low. Pt sees Dr. Stanley for Cardiology regularly, and he visited pt earlier today. Physical exam was stable. Pt denies need for pain meds currently. Pt was able to eat breakfast without complications. Dr. Simon informs pt that he will likely stay at [facility] over the weekend. Pt sees Dr. Gomez every 6 months regarding CPAP. Pt has an appointment with Dr. Gomez at 9:45 Thursday morning. Scribed by Mike Rodrigez under the direct supervision of Dr. Simon. Notes from 05/26/2016: retread technician: RN states that pt is stable for DC Pt has been using 1-2L O2 Patient Interview: Pt states that he feels good and would like to DC. Pt uses [email or web address] pharmacy. Dr. Simon informs pt that he will be evaluated for home O2. Physical exam stable. Pt states that he is having regular BMs. Pt denies having pain currently. No fever, vital signs stable, pleasant, up in chair, wearing O2, at bedside Regular rate and rhythm, clear to auscultation bilaterally but decreased breath sounds in the bases No edema Plan: Home O2 eval indicated he needs it so ordered it 2L/min DC with follow-up appointments with Meron Acosta Bailey, Lenny, and Jaden PET scan in 2 weeks Scribed by Mike Rodrigez under the direct supervision of Dr. Simon. Hospital course: Patient had an uneventful hospital course he was placed on IV antibiotics after he was directly admitted and presumed pneumonia that then revealed that was post obstructive type due to 1.5 cm pulmonary mass. he was maintain on IV antibiotics and tolerated those well he defervesced and overall improved but he did meet criteria for home oxygen upon discharge in addition to completing oral antibiotics for 3 more days and was agreeable for discharge since he was much improved Discharge Summary Discharge Physical Examination Allergies: Coded Allergies: No Known Drug Allergies (Verified Allergy, Unknown, 05/08/09) Uncoded Allergies: NKDA (Allergy, Mild, 05/07/09) Vitals & I&Os Vital Signs Date Time Temp Pulse Resp B/P Pulse Ox O2 Delivery O2 Flow Rate FiO2 05/26/16 08:50 97.9 93 22 108/58 93 Nasal Cannula 2.00 Hospital Course Labs (last 24 hrs) Microbiology 05/22/16 Blood Culture - Preliminary, Resulted No growth Discharge Home Medications: Active Scripts Active Cefdinir 300 Mg Capsule 300 Mg PO BID Reported Naproxen 500 Mg Tablet 500 Mg PO BID Bicalutamide 50 Mg Tablet 50 Mg PO DAILY Vitamin D3 (Cholecalciferol (Vitamin D3)) 1,000 Unit Capsule 1,000 Unit PO DAILY Cyanocobalamin Injection (Cyanocobalamin) 1,000 Mcg/Ml Inj 1,000 Mcg IJ MONTHLY Pravastatin Sodium 10 Mg Tablet 10 Mg PO HS CURRENTLY ON HOLD DUE TO OTHER HEALTH CONDITIONS Pradaxa (Dabigatran Etexilate Mesylate) 150 Mg Capsule 150 Mg PO BID Instructions to patient/family Please see electonic discharge instructions given to patient. Clinical Quality Measures DVT/VTE Risk/Contraindication: Risk Factor Score Per Nursin RFS Level Per Nursing on Admit: 3=High CHELSEA SIMON DO May 26, 2016 10:32
--- NOTE | 2016-05-26 10:37 | Progress Note-Cardiology ---
Cardiology SOAP Progress Note Subjective: Sitting up in a chair at the bedside. No new c/o. No c/o CP, palpitations, syncope or near syncope. Breathing better. Objective: I&O/Vital Signs Vital Sign - Last 12Hours 05/26/16 05/26/16 05/26/16 05/26/16 00:00 02:25 06:56 07:02 Temp 97.3 Pulse 93 Resp 20 B/P 118/69 Pulse Ox 94 93 93 94 O2 Delivery Room Air O2 Flow Rate 2.00 2.00 05/26/16 05/26/16 08:00 08:50 Temp 97.9 Pulse 93 Resp 22 B/P 108/58 Pulse Ox 94 93 O2 Delivery Nasal Cannula Nasal Cannula O2 Flow Rate 2.00 2.00 Intake and Output 05/26/16 00:00 Intake Total 3105 ml Balance 3105 ml Weight (Pounds): 125 Weight (Ounces): 0.0 Weight (Calculated Kilograms): [id number] Constitutional: appears stated ageNo apparent distress, well-developed well- nourished Respiratory: No accessory muscle use, No respiratory distress, chest expansion is symmetric chest is bilaterally symmetric other (diminished bases bilat) Cardiovascular: regular rate-rhythm S1 and S2 Gastrointestional: No tender, soft roundNo spleenomegaly Extremities: No clubbing, No cyanosis, No significant edema Neurologic/Psychiatric: alert oriented x 3 power is 5/5 both on sides Skin: No rash, No ulcerations Results/Procedures: Labs Microbiology 05/22/16 Blood Culture - Preliminary, Resulted No growth A/P: Assessment: Pneumonia - management per medical services Irregular nodule measuring 1.3 cm in the right upper lobe suprahilar region. There is also hilar and mediastinal lymphadenopathy seen on CT of the chest . This is being managed by Dr Sánchez and Dr Owusu Sinus node dysfunction. Some pacemaker interrogations have been suggestive of brief runs of atrial flutter/fib Symptomatic bradycardia, resolved following implantation of dual-chamber pacemaker in April 2009. The pacemaker has reached NUVIA per interrogation and pulse generator change out was carried out on 12-04-15 No evidence of any significant myocardial ischemia or infarction on myocardial perfusion imaging of 06/11/2009. Left ventricular systolic function was normal with an ejection fraction of 73%. Moderate pulmonary HTN, PASP 50-55 mmHg on echo of November 2013, of undetermined etiology. Repeat echo of 05/22/14 showed LVEF 60% and PASP 60 mmHg and mod TR and mild MR. This is being followed by Dr Gomez Chronically high atrial capture threshold . Hyperlipidemia, being treated with pravastatin Mild carotid arterial disease on ultrasonography of November 2015. OAC with dabigatran for stroke prophylaxis Obstructive sleep apnea syndrome followed by Dr Gomez. Pt on CPAP Prostate cancer being managed by Dr. Chance Plan: * Continue to monitor clinically * Cardiac status clinically stable Physician Assessment Physician Assessment Lungs: fair t good bilat air entry Cor: reg A&R * As documented in our note above * I spoke with the patient and answered questions MARYCRUZ THOMAS [employer] SPECIALIST May 26, 2016 10:37 MAXIMILIANO CRAIG MD FACP FAC CCDS May 26, 2016 11:48
[2016-05-26] MEDS: LEVOFLOXACIN 750 MG/150 ML IV 150 ML IV SCH (11:03)
[2016-05-26] MEDS ORDERED: CEFD300C3 PO (11:25)
--- NOTE | 2016-05-26 11:28 | Discharge Instructions ---
Discharge Instructions Discharge Medications New, Converted or Re-Newed RX: Transmitted to Pharmacy New Medications: Cefdinir (Cefdinir) 300 Mg Capsule 300 MG PO BID #6 CAP Continued Medications: Bicalutamide (Bicalutamide) 50 Mg Tablet 50 MG PO DAILY TAB Cholecalciferol (Vitamin D3) (Vitamin D3) 1,000 Unit Capsule 1000 UNIT PO DAILY CAP Cyanocobalamin (Cyanocobalamin Injection) 1,000 Mcg/Ml Inj 1000 MCG IJ MONTHLY VIAL Dabigatran Etexilate Mesylate (Pradaxa) 150 Mg Capsule 150 MG PO BID CAP Naproxen (Naproxen) 500 Mg Tablet 500 MG PO BID TAB Pravastatin Sodium (Pravastatin Sodium) 10 Mg Tablet 10 MG PO HS CURRENTLY ON HOLD DUE TO OTHER HEALTH CONDITIONS TAB Patient Instructions Goal/Follow Up Appt: Obtain follow-up appointments with Dr. Galvez, Dr. Stanley, Dr. Chance, Dr. Gomez, and Dr. Owusu as ordered Patient Instructions: Complete antibiotic as ordered Activity & Diet Discharge Diet: Cardiac Diet Activity as Tolerated: Yes CHELSEA SIMON DO May 26, 2016 11:28
[2016-05-26 15:30] VITALS: BP 108/58
== END 2016-05-26 15:30 | disposition home or self-care (01) | DRG 190 ==
LOC: 4TH 16:06
PROVIDERS: ADMIT Internal Medicine; ATTEND Internal Medicine
DX: J44.0 Chronic obstructive pulmonary disease with (acute) lower respiratory infection (principal); J18.9 Pneumonia, unspecified organism; R91.1 Solitary pulmonary nodule; R09.02 Hypoxemia; E87.1 Hypo-osmolality and hyponatremia; R64 Cachexia; I48.92 Unspecified atrial flutter; I48.91 Unspecified atrial fibrillation; C61 Malignant neoplasm of prostate; I95.9 Hypotension, unspecified; I10 Essential (primary) hypertension; G47.33 Obstructive sleep apnea (adult) (pediatric); E78.00 Pure hypercholesterolemia, unspecified; I27.2 Other secondary pulmonary hypertension; I08.1 Rheumatic disorders of both mitral and tricuspid valves; I65.29 Occlusion and stenosis of unspecified carotid artery; F32.9 Major depressive disorder, single episode, unspecified; D64.9 Anemia, unspecified; Z95.0 Presence of cardiac pacemaker; Z87.891 Personal history of nicotine dependence; Z79.01 Long term (current) use of anticoagulants
CPT/HCPCS: 36415; 71020; 71260; 80053; 82805; 83605; 84484; 85007; 85025; 85027; 87040; 93306; 94640; 94664; 94760; 94761

== ENCOUNTER → 2016-06-10 | Outpatient (CLI) | payer MEDICARE ==
[~2016-06-10] MED LIST changes: +BICA50TA PO; +CEFD300C3 PO; +CHOL10007 PO; +NAPR500T3 PO
--- OUTSIDE RECORDS SUMMARY | 2016-06-10 13:15 | XMS REPORT | Continuity of Care Document ---
Author Author [facility] Organization [facility] Address Unknown Phone Unavailable Allergies Active Description Code Type Severity Reaction Onset Reported/Identified Relationship to Patient Clinical Status Yes NKDA NKDA Mild N/A 05/07/2009 Yes No Known Drug Allergies [id number] Drug Allergy Unknown N/ A 05/08/2009 Medications Problems Date Dx Coded Attending Type Code Diagnosis Diagnosed By 03/03/2014 CHA CERDA DO Ot 733.00 05/20/2014 CARLOS STERN, BONI Hanley Ot 185 05/29/2014 CARLOS STERN, BONI Hanley Ot 185 06/14/2014 COLLETTE THOMASHER L HAND DRAWER IN HELPER Ot 272.4 06/14/2014 WILLIAM MARYCRUZ L HAND DRAWER IN HELPER Ot 397.0 06/14/2014 GEORGIEMA, MARYCRUZ L HAND DRAWER IN HELPER Ot 416.8 06/14/2014 BAIMA, MARYCRUZ L HAND DRAWER IN HELPER Ot 424.0 06/14/2014 GEORGIEMA, MARYCRUZ L HAND DRAWER IN HELPER Ot 427.81 06/14/2014 WILLIAM MARYCRUZ L HAND DRAWER IN HELPER Ot V45.01 12/15/2014 CHA CERDA DO Ot 733.90 12/15/2014 CHA CERDA DO Ot 737.10 12/15/2014 CHA CERDA DO Ot 781.91 12/15/2014 CHA CERDA DO Ot 733.00 12/15/2014 GEORGIEMA MARYCRUZ L HAND DRAWER IN HELPER Ot 272.4 12/15/2014 BAIMA, MARYCRUZ L HAND DRAWER IN HELPER Ot 397.0 12/15/2014 BAIMA, MARYCRUZ L HAND DRAWER IN HELPER Ot 427.81 12/15/2014 BAIMA, MARYCRZU L HAND DRAWER IN HELPER Ot V45.01 12/15/2014 BAIMA, MARYCRUZ L HAND DRAWER IN HELPER Ot 272.4 12/15/2014 BAIMA, MARYCRUZ L HAND DRAWER IN HELPER Ot 397.0 12/15/2014 BAIMA, MARYCRUZ L HAND DRAWER IN HELPER Ot 416.8 12/15/2014 BAIMA, MARYCRUZ L HAND DRAWER IN HELPER Ot 424.0 12/15/2014 GEORGIEMARYCRUZ HILARIO HAND DRAWER IN HELPER Ot 427.81 12/15/2014 MARYCRUZ THOMAS HAND DRAWER IN HELPER Ot V45.01 12/15/2014 CHA CERDA DO Ot 733.00 12/15/2014 BONI GONZALEZ MD Ot 185 01/04/2015 CHA CERDA DO Ot 599.70 01/12/2015 CHA CERDA DO Ot 599.70 01/24/2015 CHA CERDA DO Ot 733.00 01/24/2015 CHA CERDA DO Ot M81.0 02/14/2015 RAINA MARC DO Ot G47.36 SLEEP RELATED HYPOVENTILATION IN CONDITI 02/14/2015 RAINA MARC DO Ot I10 ESSENTIAL (PRIMARY) HYPERTENSION 02/14/2015 RAINA MARC DO Ot I27.2 OTHER SECONDARY PULMONARY HYPERTENSION 03/27/2015 RAINA MARC DO Ot G47.33 OBSTRUCTIVE SLEEP APNEA (ADULT) (PEDIATR 03/27/2015 RAINA MARC DO Ot I10 ESSENTIAL (PRIMARY) HYPERTENSION 03/27/2015 RAINA MARC DO Ot I27.2 OTHER SECONDARY PULMONARY HYPERTENSION 07/26/2015 CHA CERDA DO Ot M81.0 07/27/2015 CHA CERDA DO Ot M81.0 12/04/2015 BONI GONZALEZ MD Ot C61 MALIGNANT NEOPLASM OF PROSTATE 12/04/2015 BONI GONZALEZ MD Ot R97.2 ELEVATED PROSTATE SPECIFIC ANTIGEN [PSA] 12/04/2015 KIARA STERN FACC, MAXIMILIANO WILSONP CCDS Ot E78.5 HYPERLIPIDEMIA, UNSPECIFIED 12/04/2015 KIARA STERN FACC, MAXIMILIANO WILSONP CCDS Ot G47.33 OBSTRUCTIVE SLEEP APNEA (ADULT) (PEDIATR 12/04/2015 KIARA STERN FACC, MAXIMILIANO WILSONP CCDS Ot I27.2 OTHER SECONDARY PULMONARY HYPERTENSION 12/04/2015 KIARA STERN FACC, MAXIMILIANO WILSONP CCDS Ot I49.5 SICK SINUS SYNDROME 12/04/2015 MAXIMILIANO CRAIG MD, FACCP CCDS Ot Z45.010 ENCNTR FOR CHECKING AND TEST OF CARD PAC 12/04/2015 KIARA MD FACC, ALI FACP CCDS Ot Z79.899 OTHER SUPERVISOR HANGING AND TRIMMING (CURRENT) DRUG THERAPY 12/11/2015 KIARA WILSON, ALI FACP CCDS Ot E78.5 HYPERLIPIDEMIA, UNSPECIFIED 12/11/2015 KIARA STERN FACC, ALI FACP CCDS Ot G47.33 OBSTRUCTIVE SLEEP APNEA (ADULT) (PEDIATR 12/11/2015 KIARA STERN FACC, ALI FACP CCDS Ot I27.2 OTHER SECONDARY PULMONARY HYPERTENSION 12/11/2015 KIARA STERN FACC, ALI FACP CCDS Ot I49.5 SICK SINUS SYNDROME 12/11/2015 KIARA STERN FACC, ALI FACP CCDS Ot Z45.010 ENCNTR FOR CHECKING AND TEST OF CARD PAC 12/11/2015 KIARA STERN [facility], ALI FACP CCDS Ot Z79.899 OTHER SUPERVISOR HANGING AND TRIMMING (CURRENT) DRUG THERAPY 12/13/2015 KIARA STERN [facility], ALI FACP CCDS Ot E78.5 HYPERLIPIDEMIA, UNSPECIFIED 12/13/2015 KIARA STERN [facility], ALI FACP CCDS Ot G47.33 OBSTRUCTIVE SLEEP APNEA (ADULT) (PEDIATR 12/13/2015 KIARA STERN [facility], ALI FACP CCDS Ot I27.2 OTHER SECONDARY PULMONARY HYPERTENSION 12/13/2015 KIARA STERN [facility], ALI FACP CCDS Ot I49.5 SICK SINUS SYNDROME 12/13/2015 KIARA STERN [facility], ALI FACP CCDS Ot Z45.010 ENCNTR FOR CHECKING AND TEST OF CARD PAC 12/13/2015 KIARA WILSON, ALI FACP CCDS Ot Z79.899 OTHER SUPERVISOR HANGING AND TRIMMING (CURRENT) DRUG THERAPY 12/28/2015 BONI GONZALEZ MD Ot C61 MALIGNANT NEOPLASM OF PROSTATE 12/28/2015 BONI GONZALEZ MD Ot R97.2 ELEVATED PROSTATE SPECIFIC ANTIGEN [PSA] 01/04/2016 BONI GONZALEZ MD Ot C61 MALIGNANT NEOPLASM OF PROSTATE 01/04/2016 BONI GONZALEZ MD Ot R97.2 ELEVATED PROSTATE SPECIFIC ANTIGEN [PSA] 05/19/2016 CHA CERDA DO Ot 733.90 BONE CARTILAGE DIS NOS 05/19/2016 CHA CERDA DO Ot 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 05/19/2016 CHA CERDA DO Ot 781.91 LOSS OF HEIGHT 05/19/2016 CHA CERDA DO Ot 733.00 OSTEOPOROSIS NOS 05/19/2016 GEORGIEMARYCRUZ HILARIO L HAND DRAWER IN HELPER Ot 272.4 HYPERLIPIDEMIA NEC/NOS 05/19/2016 BAIMA, MARYCRUZ L HAND DRAWER IN HELPER 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 05/19/2016 BAIMA, MARYCRUZ L HAND DRAWER IN HELPER Ot 427.81 SINOATRIAL NODE DYSFUNCT 05/19/2016 BAIMACOLLETTEMARYCRUZ L HAND DRAWER IN HELPER Ot V45.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 05/19/2016 BAIMACOLLETTEMARYCRUZ L HAND DRAWER IN HELPER Ot 272.4 HYPERLIPIDEMIA NEC/NOS 05/19/2016 BAIMA, MARYCRUZ L HAND DRAWER IN HELPER 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 05/19/2016 BAIMA, MARYCRUZ L HAND DRAWER IN HELPER Ot 416.8 CHR PULMON HEART DIS NEC 05/19/2016 BAICOLLETTE HILARIOHER L HAND DRAWER IN HELPER Ot 424.0 MITRAL VALVE DISORDER 05/19/2016 GEORGIECOLLETTE HILARIOHER L HAND DRAWER IN HELPER Ot 427.81 SINOATRIAL NODE DYSFUNCT 05/19/2016 GEORGIEMARYCRUZ HILARIO L HAND DRAWER IN HELPER Ot V45.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 05/19/2016 CHA CERDA DO Ot 733.00 OSTEOPOROSIS NOS 05/19/2016 BONI GONZALEZ MD Ot 185 MALIGN NEOPL PROSTATE 05/19/2016 CHA CERDA DO Ot 599.70 HEMATURIA, UNSPECIFIED 05/19/2016 CHA CERDA DO Ot 733.00 OSTEOPOROSIS NOS 05/19/2016 CHA CERDA DO Ot 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 05/19/2016 CHA CERDA DO, Ot 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 05/19/2016 CARLOS STERN, BONI Hanley Ot C61 MALIGNANT NEOPLASM OF PROSTATE 05/19/2016 BONI GONZALEZ MD Ot R97.2 ELEVATED PROSTATE SPECIFIC ANTIGEN [PSA] 05/20/2016 MARYCRUZ THOMAS HAND DRAWER IN HELPER Ot G47.33 OBSTRUCTIVE SLEEP APNEA (ADULT) ( PEDIATR 05/20/2016 MARYCRUZ THOMAS L HAND DRAWER IN HELPER Ot I27.2 OTHER SECONDARY PULMONARY HYPERTENSION 05/20/2016 MARYCRUZ THOMAS L HAND DRAWER IN HELPER Ot I45.89 OTHER SPECIFIED CONDUCTION DISORDERS 05/20/2016 MARYCRUZ THOMAS L HAND DRAWER IN HELPER Ot 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 05/20/2016 WILLIAMMARYCRUZ HAND DRAWER IN HELPER Ot Z95.0 PRESENCE OF CARDIAC PACEMAKER 05/20/2016 WILLIAM MARYCRUZ [place] HAND DRAWER IN HELPER Ot G47.33 OBSTRUCTIVE SLEEP APNEA (ADULT) ( PEDIATR 05/20/2016 BAIMARYCRUZ HILARIO HAND DRAWER IN HELPER Ot I27.2 OTHER SECONDARY PULMONARY HYPERTENSION 05/20/2016 GEORGIEMARYCRUZ HILARIO HAND DRAWER IN HELPER Ot I45.89 OTHER SPECIFIED CONDUCTION DISORDERS 05/20/2016 WILLIAM MARYCRUZ [place] HAND DRAWER IN HELPER Ot 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 05/20/2016 GEORGIEMARYCRUZ HILARIO HAND DRAWER IN HELPER Ot Z95.0 PRESENCE OF CARDIAC PACEMAKER 05/23/2016 ALFRED BOYKIN CHELSEA Ot C61 MALIGNANT NEOPLASM OF PROSTATE 05/23/2016 ELLEN SIMON DOI Ot D64.9 ANEMIA, UNSPECIFIED 05/23/2016 ALFRED BOYKIN CHLESEA Ot E78.00 PURE HYPERCHOLESTEROLEMIA, UNSPECIFIED 05/23/2016 ALFRED BOYKIN CHELSEA Ot E87.1 HYPO-OSMOLALITY AND HYPONATREMIA 05/23/2016 ALFRED BOYKIN CHELSEA Ot F32.9 MAJOR DEPRESSIVE DISORDER, SINGLE EPISOD 05/23/2016 ALFRED BOYKIN CHELSEA Ot G47.33 OBSTRUCTIVE SLEEP APNEA (ADULT) (PEDIATR 05/23/2016 ELLEN SIMON DOI Ot I08.1 RHEUMATIC DISORDERS OF BOTH MITRAL AND T 05/23/2016 ALFRED BOYKIN CHELSEA Ot I10 ESSENTIAL (PRIMARY) HYPERTENSION 05/23/2016 ALFRED BOYKIN CHELSEA Ot I27.2 OTHER SECONDARY PULMONARY HYPERTENSION 05/23/2016 ELLEN SIMON DOI Ot I48.91 UNSPECIFIED ATRIAL FIBRILLATION 05/23/2016 ELLEN SIMON DOI Ot I48.92 UNSPECIFIED ATRIAL FLUTTER 05/23/2016 ELLEN SIMON DOI Ot I65.29 OCCLUSION AND STENOSIS OF UNSPECIFIED CA 05/23/2016 ELLEN SIMON DOI Ot I95.9 HYPOTENSION, UNSPECIFIED 05/23/2016 ALFRED BOYKIN CHELSEA Ot J18.9 PNEUMONIA, UNSPECIFIED ORGANISM 05/23/2016 ALFRED BOYKIN CHELSEA Ot 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 05/23/2016 ALFRED BOYIKN CHELSEA Ot R09.02 HYPOXEMIA 05/23/2016 ALFRED BOYKIN CHELSEA Ot R64 CACHEXIA 05/23/2016 CHELSEA SIMON DO Ot R91.1 SOLITARY PULMONARY NODULE 05/23/2016 CHELSEA SIMON DO Ot Z79.01 SUPERVISOR HANGING AND TRIMMING (CURRENT) USE OF ANTICOAGULANT 05/23/2016 CHELSEA SIMON DO Ot Z87.891 PERSONAL HISTORY OF NICOTINE DEPENDENCE 05/23/2016 CHELSEA SIMON DO Ot Z95.0 PRESENCE OF CARDIAC PACEMAKER 05/23/2016 CHELSEA SIMON DO Ot C61 MALIGNANT NEOPLASM OF PROSTATE 05/23/2016 CHELSEA SIMON DO Ot D64.9 ANEMIA, UNSPECIFIED 05/23/2016 ELLEN SIMON DOI Ot E78.00 PURE HYPERCHOLESTEROLEMIA, UNSPECIFIED 05/23/2016 CHELSEA SIMON DO Ot E87.1 HYPO-OSMOLALITY AND HYPONATREMIA 05/23/2016 CHELSEA SIMON DO Ot F32.9 MAJOR DEPRESSIVE DISORDER, SINGLE EPISOD 05/23/2016 CHELSEA SIMON DO Ot G47.33 OBSTRUCTIVE SLEEP APNEA (ADULT) (PEDIATR 05/23/2016 CHELSEA SIMON DO Ot I08.1 RHEUMATIC DISORDERS OF BOTH MITRAL AND T 05/23/2016 CHELSEA SIMON DO Ot I10 ESSENTIAL (PRIMARY) HYPERTENSION 05/23/2016 CHELSEA SIMON DO Ot I27.2 OTHER SECONDARY PULMONARY HYPERTENSION 05/23/2016 CHELSEA SIMON DO Ot I48.91 UNSPECIFIED ATRIAL FIBRILLATION 05/23/2016 CHELSEA SIMON DO Ot I48.92 UNSPECIFIED ATRIAL FLUTTER 05/23/2016 CHELSEA SIMON DO Ot I65.29 OCCLUSION AND STENOSIS OF UNSPECIFIED CA 05/23/2016 CHELSEA SIMON DO Ot I95.9 HYPOTENSION, UNSPECIFIED 05/23/2016 CHELSEA SIMON DO Ot J18.9 PNEUMONIA, UNSPECIFIED ORGANISM 05/23/2016 CHELSEA SIMON DO Ot 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 05/23/2016 CHELSAE SIMON DO Ot R09.02 HYPOXEMIA 05/23/2016 CHELSEA SIMON DO Ot R64 CACHEXIA 05/23/2016 CHELSEA SIMON DO Ot R91.1 SOLITARY PULMONARY NODULE 05/23/2016 CHELSEA SIMON DO Ot Z79.01 ASSISTED (CURRENT) USE OF ANTICOAGULANT 05/23/2016 CHELSEA SIMON DO Ot Z87.891 PERSONAL HISTORY OF NICOTINE DEPENDENCE 05/23/2016 SIMON DO, CHELSEA Ot Z95.0 PRESENCE OF CARDIAC PACEMAKER 05/25/2016 GEORGIEMARYCRUZ HILARIO HAND DRAWER IN HELPER Ot G47.33 OBSTRUCTIVE SLEEP APNEA (ADULT) ( PEDIATR 05/25/2016 MARYCRUZ THOMAS HAND DRAWER IN HELPER Ot I27.2 OTHER SECONDARY PULMONARY HYPERTENSION 05/25/2016 GEORGIEMARYCRUZ HILARIO HAND DRAWER IN HELPER Ot I45.89 OTHER SPECIFIED CONDUCTION DISORDERS 05/25/2016 WILLIAM MARYCRUZ [place] HAND DRAWER IN HELPER Ot 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 05/25/2016 WILLIAM MARYCRUZ [place] HAND DRAWER IN HELPER Ot Z95.0 PRESENCE OF CARDIAC PACEMAKER 05/26/2016 ELLEN SIMON DOI Ot C61 MALIGNANT NEOPLASM OF PROSTATE 05/26/2016 ELLEN SIMON DOI Ot D64.9 ANEMIA, UNSPECIFIED 05/26/2016 ELLEN SIMON DOI Ot E78.00 PURE HYPERCHOLESTEROLEMIA, UNSPECIFIED 05/26/2016 ELLEN SIMON DOI Ot E87.1 HYPO-OSMOLALITY AND HYPONATREMIA 05/26/2016 CHELSEA SIMON DO Ot F32.9 MAJOR DEPRESSIVE DISORDER, SINGLE EPISOD 05/26/2016 ELLEN SIMON DOI Ot G47.33 OBSTRUCTIVE SLEEP APNEA (ADULT) (PEDIATR 05/26/2016 ALFRED BOYKIN CHELSEA Ot I08.1 RHEUMATIC DISORDERS OF BOTH MITRAL AND T 05/26/2016 ALFRED BOYKIN CHELSEA Ot I10 ESSENTIAL (PRIMARY) HYPERTENSION 05/26/2016 ELLEN SIMON DOI Ot I27.2 OTHER SECONDARY PULMONARY HYPERTENSION 05/26/2016 ELLEN SIMON DOI Ot I48.91 UNSPECIFIED ATRIAL FIBRILLATION 05/26/2016 ELLEN SIMON DOI Ot I48.92 UNSPECIFIED ATRIAL FLUTTER 05/26/2016 ELLEN SIMON DOI Ot I65.29 OCCLUSION AND STENOSIS OF UNSPECIFIED CA 05/26/2016 ELLEN SIMON DOI Ot I95.9 HYPOTENSION, UNSPECIFIED 05/26/2016 CHELSEA SIMON DO Ot J18.9 PNEUMONIA, UNSPECIFIED ORGANISM 05/26/2016 ELLEN SIMON DOI Ot 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 05/26/2016 ELLEN SIMON DOI Ot R09.02 HYPOXEMIA 05/26/2016 CHELSEA SIMON DO Ot R64 CACHEXIA 05/26/2016 ELLEN SIMON DOI Ot R91.1 SOLITARY PULMONARY NODULE 05/26/2016 SIMON DO CHELSEA Ot Z79.01 SUPERVISOR HANGING AND TRIMMING (CURRENT) USE OF ANTICOAGULANT 05/26/2016 SIMON DO CHELSEA Ot Z87.891 PERSONAL HISTORY OF NICOTINE DEPENDENCE 05/26/2016 SIMON DO CHELSEA Ot Z95.0 PRESENCE OF CARDIAC PACEMAKER Procedures Results Test Result Range Automated blood complete blood count (hemogram) panel - 12/04/15 08:39 Blood leukocytes automated count (number/volume) 8.3 10*3/ uL 4.3-11.0 Blood erythrocytes automated count (number/volume) 4.99 10*6 /uL 4.35-5.85 Venous blood hemoglobin measurement (mass/volume) 15.1 g/dL 13.3-17.7 Blood hematocrit (volume fraction) 46 % 40-54 Automated erythrocyte mean corpuscular volume 93 [foz_us] 80-99 Automated erythrocyte mean corpuscular hemoglobin (mass per erythrocyte) 30 pg 25-34 Automated erythrocyte mean corpuscular hemoglobin concentration measurement ( mass/volume) 33 g/dL 32-36 Automated erythrocyte distribution width ratio 14.7 % 10.0-14.5 Automated blood platelet count (count/volume) 101 10*3/uL 130-400 Automated blood platelet mean volume measurement 12.8 [foz_ us] 7.4-10.4 PT panel in platelet poor plasma by coagulation assay - 12/04/15 08:39 Prothrombin time (PT) in platelet poor plasma by coagulation assay 13.3 s 12.2-14.7 INR in platelet poor plasma or blood by coagulation assay 1.0 0.8-1.4 Activated partial thromboplastin time (aPTT) in platelet poor plasma bycoagulation assay - 12/04/15 08:39 Activated partial thromboplastin time (aPTT) in platelet poor plasma bycoagulation assay 31 s 24-35 Comprehensive metabolic panel - 12/04/15 08:39 Serum or plasma sodium measurement (moles/volume) 140 mmol/ L 135-145 Serum or plasma potassium measurement (moles/volume) 4.3 mmol/L 3.6-5.0 Serum or plasma chloride measurement (moles/volume) 103 mmol /L 98-107 Carbon dioxide 25 mmol/L 21-32 Serum or plasma anion gap determination (moles/volume) 12 mmol/L 5-14 Serum or plasma urea nitrogen measurement (mass/volume) 17 mg/dL 7-18 Serum or plasma creatinine measurement (mass/volume) 1.16 mg /dL 0.60-1.30 Serum or plasma urea nitrogen/creatinine mass ratio 15 NRG Serum or plasma creatinine measurement with calculation of estimated glomerular filtration rate 60 NRG Serum or plasma glucose measurement (mass/volume) 76 mg/dL 70-105 Serum or plasma calcium measurement (mass/volume) 9.5 mg/dL 8.5-10.1 Serum or plasma total bilirubin measurement (mass/volume) 1.0 mg/dL 0.1-1.0 Serum or plasma alkaline phosphatase measurement (enzymatic activity/volume) 45 U/L 40-136 Serum or plasma aspartate aminotransferase measurement (enzymatic activity/ volume) 20 U/L 5-34 Serum or plasma alanine aminotransferase measurement (enzymatic activity/volume ) 16 U/L 0-55 Serum or plasma protein measurement (mass/volume) 7.0 g/dL 6.4-8.2 Serum or plasma albumin measurement (mass/volume) 4.4 g/dL 3.2-4.5 Lipid 1996 panel - 12/04/15 08:39 Serum or plasma triglyceride measurement (mass/volume) 58 mg /dL <150 Serum or plasma cholesterol measurement (mass/volume) 149 mg /dL < 200 Serum or plasma cholesterol in HDL measurement (mass/volume) 58 mg/dL 40-60 Cholesterol in LDL [mass/volume] in serum or plasma by direct assay 79 mg/dL 1-129 Serum or plasma cholesterol in VLDL measurement (mass/volume) 12 mg/dL 5-40 Methicillin resistant Staphylococcus aureus (MRSA) screening culture - 08:39 Methicillin resistant Staphylococcus aureus (MRSA) screening culture NEG [facility] Blood lactic acid measurement (moles/volume) - 05/22/16 15:30 Blood lactic acid measurement (moles/volume) 1.3 mmol/L 0.5-2.0 Bacterial blood culture - 05/22/16 15:30 Bacterial blood culture NG [facility] Complete blood count (CBC) with automated white blood cell (WBC) differential - 05/22/16 15:35 Blood leukocytes automated count (number/volume) 17.5 10*3/ uL 4.3-11.0 Blood erythrocytes automated count (number/volume) 4.46 10*6 /uL 4.35-5.85 Venous blood hemoglobin measurement (mass/volume) 13.0 g/dL 13.3-17.7 Blood hematocrit (volume fraction) 40 % 40-54 Automated erythrocyte mean corpuscular volume 90 [foz_us] 80-99 Automated erythrocyte mean corpuscular hemoglobin (mass per erythrocyte) 29 pg 25-34 Automated erythrocyte mean corpuscular hemoglobin concentration measurement ( mass/volume) 32 g/dL 32-36 Automated erythrocyte distribution width ratio 14.0 % 10.0-14.5 Automated blood platelet count (count/volume) 275 10*3/uL 130-400 Automated blood platelet mean volume measurement 11.5 [foz_ us] 7.4-10.4 Automated blood neutrophils/100 leukocytes 80 % 42-75 Automated blood lymphocytes/100 leukocytes 10 % 12-44 Blood monocytes/100 leukocytes 4 % 0-12 Automated blood eosinophils/100 leukocytes 6 % 0-10 Automated blood basophils/100 leukocytes 0 % 0-10 Blood neutrophils automated count (number/volume) 13.9 10*3 1.8-7.8 Blood lymphocytes automated count (number/volume) 1.8 10*3 1.0-4.0 Blood monocytes automated count (number/volume) 0.8 10*3 0.0-1.0 Automated eosinophil count 1.0 10*3/uL 0.0-0.3 Automated blood basophil count (count/volume) 0.0 10*3/uL 0.0-0.1 Comprehensive metabolic panel - 05/22/16 15:35 Serum or plasma sodium measurement (moles/volume) 132 mmol/ L 135-145 Serum or plasma potassium measurement (moles/volume) 4.3 mmol/L 3.6-5.0 Serum or plasma chloride measurement (moles/volume) 98 mmol/ L 98-107 Carbon dioxide 25 mmol/L 21-32 Serum or plasma anion gap determination (moles/volume) 9 mmol/L 5-14 Serum or plasma urea nitrogen measurement (mass/volume) 18 mg/dL 7-18 Serum or plasma creatinine measurement (mass/volume) 0.88 mg /dL 0.60-1.30 Serum or plasma urea nitrogen/creatinine mass ratio 20 NRG Serum or plasma creatinine measurement with calculation of estimated glomerular filtration rate > NRG Serum or plasma glucose measurement (mass/volume) 90 mg/dL 70-105 Serum or plasma calcium measurement (mass/volume) 8.9 mg/dL 8.5-10.1 Serum or plasma total bilirubin measurement (mass/volume) 0.6 mg/dL 0.1-1.0 Serum or plasma alkaline phosphatase measurement (enzymatic activity/volume) 90 U/L 40-136 Serum or plasma aspartate aminotransferase measurement (enzymatic activity/ volume) 24 U/L 5-34 Serum or plasma alanine aminotransferase measurement (enzymatic activity/volume ) 22 U/L 0-55 Serum or plasma protein measurement (mass/volume) 7.1 g/dL 6.4-8.2 Serum or plasma albumin measurement (mass/volume) 3.4 g/dL 3.2-4.5 Serum or plasma troponin i.cardiac measurement (mass/volume) - 05/22/16 15:35 Serum or plasma troponin i.cardiac measurement (mass/volume) < ng/mL <0.30 Blood manual differential performed detection - 05/22/16 15:35 Blood monocytes/100 leukocytes 2 % NRG Manual blood segmented neutrophils/100 leukocytes 76 % NRG Blood band neutrophils/100 leukocytes 0 % NRG Manual blood lymphocytes/100 leukocytes 12 % NRG Manual eosinophils/100 leukocytes in nose 10 % NRG Manual blood basophils/100 leukocytes 0 % NRG Blood erythrocyte morphology finding identification NORMAL NRG Bacterial blood culture - 05/22/16 15:35 Bacterial blood culture NG NRG Arterial blood gas measurement - 05/22/16 16:23 Blood pCO2 39 mm[Hg] 35-45 Blood pO2 60 mm[Hg] 79-93 Arterial blood bicarbonate measurement (moles/volume) 25 mmol/L 23-27 Arterial blood base excess by calculation 0.3 mmol/L -2.5-2.5 Arterial blood oxygen saturation measurement 92 % 94-100 * Inhaled oxygen flow rate ROOM AIR NRG Arterial blood pH measurement with patient temperature correction 7.42 7.37-7.43 Arterial blood carbon dioxide, total measurement (moles/volume) 25.8 mmol/L 21.0-31.0 Body site LT RAD NRG Assessment of wrist artery patency prior to arterial puncture YES-POS NRG Setting of ventilation mode NO NRG Measurement of body temperature 98.9 NRG Complete blood count (CBC) with automated white blood cell (WBC) differential - 05/23/16 05:44 Blood leukocytes automated count (number/volume) 12.5 10*3/ uL 4.3-11.0 Blood erythrocytes automated count (number/volume) 3.30 10*6 /uL 4.35-5.85 Venous blood hemoglobin measurement (mass/volume) 9.7 g/dL 13.3-17.7 Blood hematocrit (volume fraction) 30 % 40-54 Automated erythrocyte mean corpuscular volume 91 [foz_us] 80-99 Automated erythrocyte mean corpuscular hemoglobin (mass per erythrocyte) 29 pg 25-34 Automated erythrocyte mean corpuscular hemoglobin concentration measurement ( mass/volume) 32 g/dL 32-36 Automated erythrocyte distribution width ratio 13.9 % 10.0-14.5 Automated blood platelet count (count/volume) 248 10*3/uL 130-400 Automated blood platelet mean volume measurement 11.9 [foz_ us] 7.4-10.4 Automated blood neutrophils/100 leukocytes 76 % 42-75 Automated blood lymphocytes/100 leukocytes 13 % 12-44 Blood monocytes/100 leukocytes 5 % 0-12 Automated blood eosinophils/100 leukocytes 5 % 0-10 Automated blood basophils/100 leukocytes 0 % 0-10 Blood neutrophils automated count (number/volume) 9.5 10*3 1.8-7.8 Blood lymphocytes automated count (number/volume) 1.7 10*3 1.0-4.0 Blood monocytes automated count (number/volume) 0.6 10*3 0.0-1.0 Automated eosinophil count 0.7 10*3/uL 0.0-0.3 Automated blood basophil count (count/volume) 0.0 10*3/uL 0.0-0.1 Comprehensive metabolic panel - 05/23/16 05:44 Serum or plasma sodium measurement (moles/volume) 136 mmol/ L 135-145 Serum or plasma potassium measurement (moles/volume) 4.1 mmol/L 3.6-5.0 Serum or plasma chloride measurement (moles/volume) 106 mmol /L 98-107 Carbon dioxide 20 mmol/L 21-32 Serum or plasma anion gap determination (moles/volume) 10 mmol/L 5-14 Serum or plasma urea nitrogen measurement (mass/volume) 15 mg/dL 7-18 Serum or plasma creatinine measurement (mass/volume) 0.81 mg /dL 0.60-1.30 Serum or plasma urea nitrogen/creatinine mass ratio 19 NRG Serum or plasma creatinine measurement with calculation of estimated glomerular filtration rate > NRG Serum or plasma glucose measurement (mass/volume) 91 mg/dL 70-105 Serum or plasma calcium measurement (mass/volume) 7.9 mg/dL 8.5-10.1 Serum or plasma total bilirubin measurement (mass/volume) 0.3 mg/dL 0.1-1.0 Serum or plasma alkaline phosphatase measurement (enzymatic activity/volume) 72 U/L 40-136 Serum or plasma aspartate aminotransferase measurement (enzymatic activity/ volume) 23 U/L 5-34 Serum or plasma alanine aminotransferase measurement (enzymatic activity/volume ) 19 U/L 0-55 Serum or plasma protein measurement (mass/volume) 5.5 g/dL 6.4-8.2 Serum or plasma albumin measurement (mass/volume) 2.7 g/dL 3.2-4.5 Complete blood count (CBC) with automated white blood cell (WBC) differential - 05/24/16 05:00 Blood leukocytes automated count (number/volume) 9.9 10*3/ uL 4.3-11.0 Blood erythrocytes automated count (number/volume) 3.67 10*6 /uL 4.35-5.85 Venous blood hemoglobin measurement (mass/volume) 10.7 g/dL 13.3-17.7 Blood hematocrit (volume fraction) 33 % 40-54 Automated erythrocyte mean corpuscular volume 90 [foz_us] 80-99 Automated erythrocyte mean corpuscular hemoglobin (mass per erythrocyte) 29 pg 25-34 Automated erythrocyte mean corpuscular hemoglobin concentration measurement ( mass/volume) 32 g/dL 32-36 Automated erythrocyte distribution width ratio 14.2 % 10.0-14.5 Automated blood platelet count (count/volume) 227 10*3/uL 130-400 Automated blood platelet mean volume measurement 11.8 [foz_ us] 7.4-10.4 Automated blood neutrophils/100 leukocytes 65 % 42-75 Automated blood lymphocytes/100 leukocytes 17 % 12-44 Blood monocytes/100 leukocytes 6 % 0-12 Automated blood eosinophils/100 leukocytes 12 % 0-10 Automated blood basophils/100 leukocytes 0 % 0-10 Blood neutrophils automated count (number/volume) 6.5 10*3 1.8-7.8 Blood lymphocytes automated count (number/volume) 1.7 10*3 1.0-4.0 Blood monocytes automated count (number/volume) 0.6 10*3 0.0-1.0 Automated eosinophil count 1.1 10*3/uL 0.0-0.3 Automated blood basophil count (count/volume) 0.0 10*3/uL 0.0-0.1 Comprehensive metabolic panel - 05/24/16 05:00 Serum or plasma sodium measurement (moles/volume) 139 mmol/ L 135-145 Serum or plasma potassium measurement (moles/volume) 3.9 mmol/L 3.6-5.0 Serum or plasma chloride measurement (moles/volume) 108 mmol /L 98-107 Carbon dioxide 21 mmol/L 21-32 Serum or plasma anion gap determination (moles/volume) 10 mmol/L 5-14 Serum or plasma urea nitrogen measurement (mass/volume) 13 mg/dL 7-18 Serum or plasma creatinine measurement (mass/volume) 0.74 mg /dL 0.60-1.30 Serum or plasma urea nitrogen/creatinine mass ratio 18 NRG Serum or plasma creatinine measurement with calculation of estimated glomerular filtration rate > NRG Serum or plasma glucose measurement (mass/volume) 86 mg/dL 70-105 Serum or plasma calcium measurement (mass/volume) 7.7 mg/dL 8.5-10.1 Serum or plasma total bilirubin measurement (mass/volume) 0.3 mg/dL 0.1-1.0 Serum or plasma alkaline phosphatase measurement (enzymatic activity/volume) 73 U/L 40-136 Serum or plasma aspartate aminotransferase measurement (enzymatic activity/ volume) 25 U/L 5-34 Serum or plasma alanine aminotransferase measurement (enzymatic activity/volume ) 21 U/L 0-55 Serum or plasma protein measurement (mass/volume) 5.4 g/dL 6.4-8.2 Serum or plasma albumin measurement (mass/volume) 2.6 g/dL 3.2-4.5 Encounters ACCT No. Visit Date/Time Discharge Status Pt. Type Provider Facility Loc./Unit Complaint [id number] 05/22/2016 16:06:00 2016 15:30:00 DIS Outpatient CHELSEA SIMON DO [facility] 4TH PNEUMONIA [id number] 12/04/2015 08:06:00 2015 15:37:00 DIS Outpatient KIARA STERN FACC, MAXIMILIANO ORTIZ CCDS [facility] CATH END OF LIFE PACEMAKER, SINUS NODE DYSFUNCTION [id number] 03/26/2015 21:02:00 2014 06:48:00 DIS Outpatient RAINA MARC DO [facility] SLEEP PULM, HTN, CHOKING/GASPING [id number] 02/13/2015 21:00:00 2014 06:25:00 DIS Outpatient RAINA MARC DO [facility] SLEEP CHOKING/GASPING DURING SLEEP ARRHYTHMIAS, PULM HTN [id number] 01/04/2015 10:40:00 2014 23:59:59 CLS Outpatient CHA CERDA DO [facility] RAD OSTEOPOROSIS [id number] 12/15/2014 11:28:00 2014 23:59:59 CLS Outpatient CHA CERDA DO [facility] RAD HEMATURIA [id number] 05/22/2014 07:31:00 2014 23:59:59 CLS Outpatient MARYCRUZ THOMAS [facility] CARD SINUS NODE DISFUNCTION,HLP [id number] 04/24/2014 10:47:00 2014 23:59:59 CLS Outpatient CARLOS STERN, BONI Hanley [facility] CARD PROSTATE CA [id number] 02/01/2014 12:51:00 2013 23:59:59 CLS Outpatient CHA CERDA DO [facility] OSTEOPOROSIS [id number] 12/01/2013 07:28:00 2013 23:59:59 CLS Outpatient MARYCRUZ THOMAS [facility] CARD HYPERLIPIDEMIA PACEMAKER [id number] 01/28/2013 12:43:00 2012 23:59:59 CLS Outpatient CHA CERDA DO [facility] BODERLINE OSTEOPOROSIS [id number] 12/24/2012 10:47:00 2012 23:59:59 CLS Outpatient CHA CERDA DO [facility] RAD DORSAL KYPHOSIS,LOSS OF WEIGHT [id number] 06/12/2016 14:26:00 PEN Preadmit BHAVESH SARKAR [facility] ONC [id number] 05/19/2016 09:29:00 ACT Outpatient MARYCRUZ THOMAS [facility] CARD PAH,JERMAINE,DISORDER OF CAROTID ARTERY [id number] 12/03/2015 11:45:00 ACT Outpatient BONI GONZALEZ MD [facility] CARD CA PROSTATE [id number] 06/18/2015 12:55:00 ACT Outpatient CHA CERDA DO [facility] SDC OSTEOPOROSIS
--- NOTE | 2016-06-12 09:38 | Diagnostic Imaging Report ---
EXAMINATION: PET/CT. INDICATION: Lung cancer initial. TECHNIQUE: After intravenous administration of 15.9 mCi of F18-FDG, a series of overlapping emission and transmission PET images was obtained. In the coronal, transaxial and sagittal planes, the area imaged extended from the skull base through the upper thighs. COMPARISON: There are no previous PET/CT examinations available for comparison. FINDINGS: The CT chest exam performed on 05/23/2016 noted an irregular 1 cm nodule in the right upper lobe. On this exam, that nodule does appear to be hypermetabolic with a maximum SUV of 3.7. There is also an irregular parenchymal density in the left upper lobe, which shows hypermetabolic activity. The maximum SUV in this area is also a 3.6. Just superior to this nodule, there is another irregular parenchymal density with a maximum SUV of 4.5. The CT exam also noted an irregular pleural density along the periphery of the right upper lung. This area is also hypermetabolic, but the maximum SUV is only 3.5. There is a small slightly hypermetabolic node in the right hilum. This has a maximum SUV of 2.7. There is no other hypermetabolic activity within the thorax to suggest neoplastic disease. There is no hypermetabolic activity involving the soft tissues of the abdomen or pelvis to indicate neoplastic disease. However, there is increased activity in the spinous process of L2 and L4. The maximum SUVs in these regions are 4.6. Even in retrospect, there was no increased activity in these areas on the bone scan performed on 12/03/2015. There is no other hypermetabolic activity to suggest the presence of a neoplasm. The CT images again show severe chronic pulmonary disease involving both lungs. IMPRESSION: 1. The 1.3 cm nodule in the right suprahilar region seen on the previous CT chest exam is hypermetabolic. There are also a hypermetabolic nodules in the left apex, and there is slightly increased activity along the pleural surface of the right upper lung. All these findings should be considered neoplastic until proven otherwise. 2. The slight increased hypermetabolic activity associated with the right hilar node is suspicious but not conclusive for neoplastic disease. 3. The increased activity involving the spinous processes of L2 and L4 also suggest neoplastic disease. Dictated by: Dictated on workstation # [id number]
== END ==
LOC: RAD 08:29
PROVIDERS: ATTEND Internal Medicine Hematology & Oncology
DX: R91.8 Other nonspecific abnormal finding of lung field (principal)

== ENCOUNTER 2016-07-01 10:00 | Outpatient (CLI) | payer MEDICARE ==
--- OUTSIDE RECORDS SUMMARY | 2016-06-30 06:02 | XMS REPORT | Continuity of Care Document ---
Author Author [facility] Organization [facility] Address Unknown Phone Unavailable Allergies Active Description Code Type Severity Reaction Onset Reported/Identified Relationship to Patient Clinical Status Yes NKDA NKDA Mild N/A 05/07/2009 Yes No Known Drug Allergies [id number] Drug Allergy Unknown N/ A 05/08/2009 Medications Problems Date Dx Coded Attending Type Code Diagnosis Diagnosed By 03/03/2014 CHA CERDA DO Ot 733.00 05/20/2014 CARLOS STERN, BONI Hanley Ot 185 05/29/2014 CARLOS STERN, BONI Hanley Ot 185 06/14/2014 COLLETTE THOMASHER L PER DIEM CLERK Ot 272.4 06/14/2014 WILLIAM MARYCRUZ L PER DIEM CLERK Ot 397.0 06/14/2014 GEORGIEMA, MARYCRUZ L PER DIEM CLERK Ot 416.8 06/14/2014 BAIMA, MARYCRUZ L PER DIEM CLERK Ot 424.0 06/14/2014 GEORGIEMA, MARYCRUZ L PER DIEM CLERK Ot 427.81 06/14/2014 WILLIAM MARYCRUZ L PER DIEM CLERK Ot V45.01 12/15/2014 CHA CERDA DO Ot 733.90 12/15/2014 CHA CERDA DO Ot 737.10 12/15/2014 CHA CERDA DO Ot 781.91 12/15/2014 CHA CERDA DO Ot 733.00 12/15/2014 GEORGIEMA MARYCRUZ L PER DIEM CLERK Ot 272.4 12/15/2014 BAIMA, MARYCRUZ L PER DIEM CLERK Ot 397.0 12/15/2014 BAIMA, MARYCRUZ L PER DIEM CLERK Ot 427.81 12/15/2014 BAIMA, MARYCRUZ L PER DIEM CLERK Ot V45.01 12/15/2014 BAIMA, MARYCRUZ L PER DIEM CLERK Ot 272.4 12/15/2014 BAIMA, MARYCRUZ L PER DIEM CLERK Ot 397.0 12/15/2014 BAIMA, MARYCRUZ L PER DIEM CLERK Ot 416.8 12/15/2014 BAIMA, MARYCRUZ L PER DIEM CLERK Ot 424.0 12/15/2014 GEORGIEMARYCRUZ HILARIO PER DIEM CLERK Ot 427.81 12/15/2014 MARYCRUZ THOMAS PER DIEM CLERK Ot V45.01 12/15/2014 CHA CERDA DO Ot [...] FACC, ALI FACP CCDS Ot Z79.899 OTHER 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) DRUG THERAPY 12/11/2015 KIARA WILSON, ALI [...] TEST OF CARD PAC 12/11/2015 KIARA STERN [facility], ALI FACP CCDS Ot Z79.899 OTHER FPC (CURRENT) DRUG THERAPY 12/13/2015 KIARA STERN [facility], ALI FACP CCDS Ot E78.5 HYPERLIPIDEMIA, UNSPECIFIED 12/13/2015 KIARA STERN [facility], ALI FACP CCDS Ot G47.33 OBSTRUCTIVE SLEEP APNEA (ADULT) (PEDIATR 12/13/2015 KIARA STERN [facility], ALI FACP CCDS Ot I27.2 OTHER SECONDARY PULMONARY HYPERTENSION 12/13/2015 KIARA STERN [facility], ALI FACP CCDS Ot I49.5 SICK SINUS SYNDROME 12/13/2015 KIARA STERN [facility], ALI FACP CCDS Ot Z45.010 ENCNTR FOR CHECKING AND TEST OF CARD PAC 12/13/2015 KIARA WILSON, ALI FACP CCDS Ot Z79.899 OTHER 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) DRUG THERAPY 12/28/2015 BONI GONZALEZ MD [...] 733.00 OSTEOPOROSIS NOS 05/19/2016 GEORGIEMARYCRUZ HILARIO L PER DIEM CLERK Ot 272.4 HYPERLIPIDEMIA NEC/NOS 05/19/2016 BAIMA, MARYCRUZ L PER DIEM CLERK 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 05/19/2016 BAIMA, MARYCRUZ L PER DIEM CLERK Ot 427.81 SINOATRIAL NODE DYSFUNCT 05/19/2016 BAIMACOLLETTEMARYCRUZ L PER DIEM CLERK Ot V45.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 05/19/2016 BAIMACOLLETTEMARYCRUZ L PER DIEM CLERK Ot 272.4 HYPERLIPIDEMIA NEC/NOS 05/19/2016 BAIMA, MARYCRUZ L PER DIEM CLERK 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 05/19/2016 BAIMA, MARYCRUZ L PER DIEM CLERK Ot 416.8 CHR PULMON HEART DIS NEC 05/19/2016 BAICOLLETTE HILARIOHER L PER DIEM CLERK Ot 424.0 MITRAL VALVE DISORDER 05/19/2016 GEORGIECOLLETTE HILARIOHER L PER DIEM CLERK Ot 427.81 SINOATRIAL NODE DYSFUNCT 05/19/2016 GEORGIEMARYCRUZ HILARIO L PER DIEM CLERK Ot V45.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 05/19/2016 CHA CERDA DO Ot 733.00 OSTEOPOROSIS NOS 05/19/2016 BNOI GONZALEZ MD Ot 185 MALIGN NEOPL PROSTATE [...] PROSTATE SPECIFIC ANTIGEN [PSA] 05/20/2016 MARYCRUZ THOMAS PER DIEM CLERK Ot G47.33 OBSTRUCTIVE SLEEP APNEA (ADULT) ( PEDIATR 05/20/2016 MARYCRUZ THOMAS L PER DIEM CLERK Ot I27.2 OTHER SECONDARY PULMONARY HYPERTENSION 05/20/2016 MARYCRUZ THOMAS L PER DIEM CLERK Ot I45.89 OTHER SPECIFIED CONDUCTION DISORDERS 05/20/2016 MARYCRUZ THOMAS L PER DIEM CLERK Ot 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 05/20/2016 WILLIAMMARYCRUZ PER DIEM CLERK Ot Z95.0 PRESENCE OF CARDIAC PACEMAKER 05/20/2016 WILLIAM MARYCRUZ [place] PER DIEM CLERK Ot G47.33 OBSTRUCTIVE SLEEP APNEA (ADULT) ( PEDIATR 05/20/2016 BAIMARYCRUZ HILARIO PER DIEM CLERK Ot I27.2 OTHER SECONDARY PULMONARY HYPERTENSION 05/20/2016 GEORGIEMARYCRUZ HILARIO PER DIEM CLERK Ot I45.89 OTHER SPECIFIED CONDUCTION DISORDERS 05/20/2016 WILLIAM MARYCRUZ [place] PER DIEM CLERK Ot 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 05/20/2016 GEORGIEMARYCRUZ HILARIO PER DIEM CLERK Ot Z95.0 PRESENCE OF CARDIAC PACEMAKER 05/23/2016 [...] DOI Ot I95.9 HYPOTENSION, UNSPECIFIED 05/23/2016 ALFRED BOKYIN CHELSEA Ot J18.9 PNEUMONIA, UNSPECIFIED ORGANISM 05/23/2016 ALFRED BOYKIN CHELSEA Ot 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 05/23/2016 ALFRED BOYKIN CHELSEA Ot R09.02 HYPOXEMIA 05/23/2016 ALFRED BOYKIN CHELSEA Ot R64 CACHEXIA 05/23/2016 CHELSEA SIMON DO Ot R91.1 SOLITARY PULMONARY NODULE 05/23/2016 CHELSEA SIMON DO Ot Z79.01 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) USE OF ANTICOAGULANT 05/23/2016 CHELSEA SIMON [...] NODULE 05/23/2016 CHELSEA SIMON DO Ot Z79.01 FPC (CURRENT) USE OF ANTICOAGULANT 05/23/2016 CHELSEA SIMON DO Ot Z87.891 PERSONAL HISTORY OF NICOTINE DEPENDENCE 05/23/2016 SIMON DO, CHELSEA Ot Z95.0 PRESENCE OF CARDIAC PACEMAKER 05/25/2016 GEORGIEMARYCRUZ HILARIO PER DIEM CLERK Ot G47.33 OBSTRUCTIVE SLEEP APNEA (ADULT) ( PEDIATR 05/25/2016 MARYCRUZ THOMAS PER DIEM CLERK Ot I27.2 OTHER SECONDARY PULMONARY HYPERTENSION 05/25/2016 GEORGIEMARYCRUZ HILARIO PER DIEM CLERK Ot I45.89 OTHER SPECIFIED CONDUCTION DISORDERS 05/25/2016 WILLIAM MARYCRUZ [place] PER DIEM CLERK Ot 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 05/25/2016 WILLIAM MARYCRUZ [place] PER DIEM CLERK Ot Z95.0 PRESENCE OF CARDIAC PACEMAKER 05/26/2016 [...] NODULE 05/26/2016 CHELSEA SIMON DO Ot Z79.01 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) USE OF ANTICOAGULANT 05/26/2016 CHELSEA SIMON DO Ot Z87.891 PERSONAL HISTORY OF NICOTINE DEPENDENCE 05/26/2016 CHELSEA SIMON DO Ot Z95.0 PRESENCE OF CARDIAC PACEMAKER 06/11/2016 BHAVESH SARKAR Ramy Ot R91.8 OTHER NONSPECIFIC ABNORMAL FINDING OF [place] 06/11/2016 BHAVESH SARKAR Ramy Ot R91.8 OTHER NONSPECIFIC ABNORMAL FINDING OF [place] 06/11/2016 BHAVESH SARKAR Ramy Ot R91.8 OTHER NONSPECIFIC ABNORMAL FINDING OF [place] 06/11/2016 GEORGIEYANELIS MARYCRUZ L PER DIEM CLERK Ot G47.33 OBSTRUCTIVE SLEEP APNEA (ADULT) ( PEDIATR 06/11/2016 BAIYANELIS MARYCRUZ L PER DIEM CLERK Ot I27.2 OTHER SECONDARY PULMONARY HYPERTENSION 06/11/2016 GEORGIEYANELIS, MARYCRUZ L PER DIEM CLERK Ot I45.89 OTHER SPECIFIED CONDUCTION DISORDERS 06/11/2016 BAIMA, MARYCRUZ L PER DIEM CLERK Ot 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 Type Provider Facility Loc./Unit Complaint [id number] 05/22/2016 16:06:00 2016 15:30:00 DIS Outpatient CHELSEA SIMON DO [facility] 4TH PNEUMONIA [id number] 12/04/2015 08:06:00 2015 15:37:00 DIS Outpatient KIARA STERN FACC, MAXIMILIANO ORTIZ CCDS [facility] CATH END OF LIFE PACEMAKER, SINUS NODE DYSFUNCTION [id number] 03/26/2015 21:02:00 2014 06:48:00 DIS Outpatient RAINA MARC DO [facility] SLEEP PULM, HTN, CHOKING/GASPING [id number] 02/13/2015 21:00:00 2014 06:25:00 DIS Outpatient RAINA MARC DO [facility] SLEEP CHOKING/GASPING DURING SLEEP ARRHYTHMIAS, PULM HTN [id number] 01/04/2015 10:40:00 2014 23:59:59 CLS Outpatient CHA CERDA DO [facility] RAD OSTEOPOROSIS [id number] 12/15/2014 11:28:00 2014 23:59:59 CLS Outpatient CHA CERDA DO [facility] RAD HEMATURIA [id number] 05/22/2014 07:31:00 2014 23:59:59 CLS Outpatient MARYCRUZ THOMAS [facility] CARD SINUS NODE DISFUNCTION,HLP [id number] 04/24/2014 10:47:00 2014 23:59:59 CLS Outpatient BONI GONZALEZ MD [facility] CARD PROSTATE CA [id number] 02/01/2014 12:51:00 2013 23:59:59 CLS Outpatient CHA CERDA DO [facility] OSTEOPOROSIS [id number] 12/01/2013 07:28:00 2013 23:59:59 CLS Outpatient MARYCRUZ THOMAS [facility] HYPERLIPIDEMIA PACEMAKER [id number] 01/28/2013 12:43:00 2012 23:59:59 CLS Outpatient CHA CERDA DO [facility] BODERLINE OSTEOPOROSIS [id number] 12/24/2012 10:47:00 2012 23:59:59 CLS Outpatient CHA CERDA DO [facility] RAD DORSAL KYPHOSIS,LOSS OF WEIGHT [id number] 06/30/2016 05:57:00 ACT Outpatient RAINA MARC DO [facility] PREOP LUNG MASS [id number] 06/13/2016 10:19:00 ACT Outpatient BHAVESH SARKAR [facility] ONC [id number] 06/10/2016 08:29:00 ACT Outpatient BHAVESH SARKAR [facility] RAD LUNG NODULES [id number] 05/19/2016 09:29:00 ACT Outpatient MARYCRUZ THOMAS [facility] CARD PAH,JERMAINE,DISORDER OF CAROTID ARTERY [id number] 12/03/2015 11:45:00 ACT Outpatient BONI GONZALEZ MD [facility] CARD CA PROSTATE [id number] 06/18/2015 12:55:00 ACT Outpatient CHA CERDA DO [facility] OSTEOPOROSIS
[~2016-07-01] VITALS: Ht 162.6 cm; Wt 56.7 kg
--- OUTSIDE RECORDS SUMMARY | 2016-07-01 10:09 | XMS REPORT | Continuity of Care Document ---
Author Author [facility] Organization [facility] Address Unknown Phone Unavailable Allergies Active Description Code Type Severity Reaction Onset Reported/Identified Relationship to Patient Clinical Status Yes NKDA NKDA Mild N/A 05/07/2009 Yes No Known Drug Allergies [id number] Drug Allergy Unknown N/ A 05/08/2009 Medications Problems Date Dx Coded Attending Type Code Diagnosis Diagnosed By 03/03/2014 CHA CERDA DO Ot 733.00 05/20/2014 CARLOS STERN, BONI Hanley Ot 185 05/29/2014 CARLOS STERN, BONI Hanley Ot 185 06/14/2014 COLLETTE THOMASHER L ENGINEER STEAM Ot 272.4 06/14/2014 WILLIAM MARYCRUZ L ENGINEER STEAM Ot 397.0 06/14/2014 GEORGIEMA, MARYCRUZ L ENGINEER STEAM Ot 416.8 06/14/2014 BAIMA, MARYCRUZ L ENGINEER STEAM Ot 424.0 06/14/2014 GEORGIEMA, MARYCRUZ L ENGINEER STEAM Ot 427.81 06/14/2014 WILLIAM MARYCRUZ L ENGINEER STEAM Ot V45.01 12/15/2014 CHA CERDA DO Ot 733.90 12/15/2014 CHA CERDA DO Ot 737.10 12/15/2014 CHA CERDA DO Ot 781.91 12/15/2014 CHA CERDA DO Ot 733.00 12/15/2014 GEORGIEMA MARYCRUZ L ENGINEER STEAM Ot 272.4 12/15/2014 BAIMA, MARYCRUZ L ENGINEER STEAM Ot 397.0 12/15/2014 BAIMA, MARYCRUZ L ENGINEER STEAM Ot 427.81 12/15/2014 BAIMA, MARYCRUZ L ENGINEER STEAM Ot V45.01 12/15/2014 BAIMA, MARYCRUZ L ENGINEER STEAM Ot 272.4 12/15/2014 BAIMA, MARYCRUZ L ENGINEER STEAM Ot 397.0 12/15/2014 BAIMA, MARYCRUZ L ENGINEER STEAM Ot 416.8 12/15/2014 BAIMA, MARYCRUZ L ENGINEER STEAM Ot 424.0 12/15/2014 GEORGIEMARYCRUZ HILARIO ENGINEER STEAM Ot 427.81 12/15/2014 MARYCRUZ THOMAS ENGINEER STEAM Ot V45.01 12/15/2014 CHA CERDA DO Ot [...] (ADULT) (PEDIATR 12/04/2015 KIARA STERN FACC, MAXIMILIANO WISLONP CCDS Ot I27.2 OTHER SECONDARY PULMONARY HYPERTENSION 12/04/2015 KIARA STERN FACC, MAXIMILIANO WILSONP CCDS Ot I49.5 SICK SINUS SYNDROME 12/04/2015 MAXIMILIANO CRAIG MD, FACCP CCDS Ot Z45.010 ENCNTR FOR CHECKING AND TEST OF CARD PAC 12/04/2015 KIARA MD FACC, ALI FACP CCDS Ot Z79.899 OTHER MAJOR DONOR COORDINATOR (CURRENT) DRUG THERAPY 12/11/2015 KIARA WILSON, ALI [...] TEST OF CARD PAC 12/11/2015 KIARA STERN [facility], ALI FACP CCDS Ot Z79.899 OTHER SENIOR LIVING (CURRENT) DRUG THERAPY 12/13/2015 KIARA STERN [facility], ALI FACP CCDS Ot E78.5 HYPERLIPIDEMIA, UNSPECIFIED 12/13/2015 KIARA STERN [facility], ALI FACP CCDS Ot G47.33 OBSTRUCTIVE SLEEP APNEA (ADULT) (PEDIATR 12/13/2015 KIARA STERN [facility], ALI FACP CCDS Ot I27.2 OTHER SECONDARY PULMONARY HYPERTENSION 12/13/2015 KIARA STERN [facility], ALI FACP CCDS Ot I49.5 SICK SINUS SYNDROME 12/13/2015 KIARA STERN [facility], ALI FACP CCDS Ot Z45.010 ENCNTR FOR CHECKING AND TEST OF CARD PAC 12/13/2015 KIARA WILSON, ALI FACP CCDS Ot Z79.899 OTHER MAJOR DONOR COORDINATOR (CURRENT) DRUG THERAPY 12/28/2015 BONI GONZALEZ MD [...] 733.00 OSTEOPOROSIS NOS 05/19/2016 GEORGIEMARYCRUZ HILARIO L ENGINEER STEAM Ot 272.4 HYPERLIPIDEMIA NEC/NOS 05/19/2016 BAIMA, MARYCRUZ L ENGINEER STEAM 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 05/19/2016 BAIMA, MARYCRUZ L ENGINEER STEAM Ot 427.81 SINOATRIAL NODE DYSFUNCT 05/19/2016 BAIMACOLLETTEMARYCRUZ L ENGINEER STEAM Ot V45.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 05/19/2016 BAIMACOLLETTEMARYCRUZ L ENGINEER STEAM Ot 272.4 HYPERLIPIDEMIA NEC/NOS 05/19/2016 BAIMA, MARYCRUZ L ENGINEER STEAM 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 05/19/2016 BAIMA, MARYCRUZ L ENGINEER STEAM Ot 416.8 CHR PULMON HEART DIS NEC 05/19/2016 BAICOLLETTE HILARIOHER L ENGINEER STEAM Ot 424.0 MITRAL VALVE DISORDER 05/19/2016 GEORGIECOLLETTE HILARIOHER L ENGINEER STEAM Ot 427.81 SINOATRIAL NODE DYSFUNCT 05/19/2016 GEORGIEMARYCRUZ HILARIO L ENGINEER STEAM Ot V45.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 05/19/2016 [...] PROSTATE SPECIFIC ANTIGEN [PSA] 05/20/2016 MARYCRUZ THOMAS ENGINEER STEAM Ot G47.33 OBSTRUCTIVE SLEEP APNEA (ADULT) ( PEDIATR 05/20/2016 MARYCRUZ THOMAS L ENGINEER STEAM Ot I27.2 OTHER SECONDARY PULMONARY HYPERTENSION 05/20/2016 MARYCRUZ THOMAS L ENGINEER STEAM Ot I45.89 OTHER SPECIFIED CONDUCTION DISORDERS 05/20/2016 MARYCRUZ THOMAS L ENGINEER STEAM Ot 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 05/20/2016 WILLIAMMARYCRUZ ENGINEER STEAM Ot Z95.0 PRESENCE OF CARDIAC PACEMAKER 05/20/2016 WILLIAM MARYCRUZ [place] ENGINEER STEAM Ot G47.33 OBSTRUCTIVE SLEEP APNEA (ADULT) ( PEDIATR 05/20/2016 BAIMARYCRUZ HILARIO ENGINEER STEAM Ot I27.2 OTHER SECONDARY PULMONARY HYPERTENSION 05/20/2016 GEORGIEMARYCRUZ HILARIO ENGINEER STEAM Ot I45.89 OTHER SPECIFIED CONDUCTION DISORDERS 05/20/2016 WILLIAM MARYCRUZ [place] ENGINEER STEAM Ot 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 05/20/2016 GEORGIEMARYCRUZ HILARIO ENGINEER STEAM Ot Z95.0 PRESENCE OF CARDIAC PACEMAKER 05/23/2016 [...] OCCLUSION AND STENOSIS OF UNSPECIFIED CA 05/23/2016 LELEN SIMON DOI Ot I95.9 HYPOTENSION, UNSPECIFIED 05/23/2016 ALFRED BOYKIN CHELSEA Ot J18.9 PNEUMONIA, UNSPECIFIED ORGANISM 05/23/2016 ALFRED BOYKIN CHELSEA Ot 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 05/23/2016 ALFRED BOYKIN CHELSEA Ot R09.02 HYPOXEMIA 05/23/2016 ALFRED BOYKIN CHELSEA Ot R64 CACHEXIA 05/23/2016 CHELSEA SIMON DO Ot R91.1 SOLITARY PULMONARY NODULE 05/23/2016 CHELSEA SIMON DO Ot Z79.01 MAJOR DONOR COORDINATOR (CURRENT) USE OF ANTICOAGULANT 05/23/2016 CHELSEA SIMON [...] NODULE 05/23/2016 CHELSEA SIMON DO Ot Z79.01 SENIOR LIVING (CURRENT) USE OF ANTICOAGULANT 05/23/2016 CHELSEA SIMON DO Ot Z87.891 PERSONAL HISTORY OF NICOTINE DEPENDENCE 05/23/2016 SIMON DO, CHELSEA Ot Z95.0 PRESENCE OF CARDIAC PACEMAKER 05/25/2016 GEORGIEMARYCRUZ HILARIO ENGINEER STEAM Ot G47.33 OBSTRUCTIVE SLEEP APNEA (ADULT) ( PEDIATR 05/25/2016 MARYCRUZ THOMAS ENGINEER STEAM Ot I27.2 OTHER SECONDARY PULMONARY HYPERTENSION 05/25/2016 GEORGIEMARYCRUZ HILARIO ENGINEER STEAM Ot I45.89 OTHER SPECIFIED CONDUCTION DISORDERS 05/25/2016 WILLIAM MARYCRUZ [place] ENGINEER STEAM Ot 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 05/25/2016 WILLIAM MARYCRUZ [place] ENGINEER STEAM Ot Z95.0 PRESENCE OF CARDIAC PACEMAKER 05/26/2016 [...] SIMON DOI Ot I95.9 HYPOTENSION, UNSPECIFIED 05/26/2016 CHELSAE SIMON DO Ot J18.9 PNEUMONIA, UNSPECIFIED ORGANISM 05/26/2016 ELLEN SIMON DOI Ot 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 05/26/2016 ELLEN SIMON DOI Ot R09.02 HYPOXEMIA 05/26/2016 CHELSEA SIMON DO Ot R64 CACHEXIA 05/26/2016 ELLEN SIMON DOI Ot R91.1 SOLITARY PULMONARY NODULE 05/26/2016 CHELSEA SIMON DO Ot Z79.01 MAJOR DONOR COORDINATOR (CURRENT) USE OF ANTICOAGULANT 05/26/2016 CHELSEA SIMON [...] FINDING OF [place] 06/11/2016 GEORGIEYANELIS MARYCRUZ L ENGINEER STEAM Ot G47.33 OBSTRUCTIVE SLEEP APNEA (ADULT) ( PEDIATR 06/11/2016 BAIYANELIS MARYCRUZ L ENGINEER STEAM Ot I27.2 OTHER SECONDARY PULMONARY HYPERTENSION 06/11/2016 GEORGIEYANELIS, MARYCRUZ L ENGINEER STEAM Ot I45.89 OTHER SPECIFIED CONDUCTION DISORDERS 06/11/2016 BAIMA, MARYCRUZ L ENGINEER STEAM Ot 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 Type Provider Facility Loc./Unit Complaint [id number] 05/22/2016 16:06:00 2016 15:30:00 DIS Outpatient CHELSEA SIMON DO [facility] 4TH PNEUMONIA [id number] 12/04/2015 08:06:00 2015 15:37:00 DIS Outpatient KIARA STERN FACC, MAXIMILIANO ORTIZ CCDS [facility] CATH END OF LIFE PACEMAKER, SINUS NODE DYSFUNCTION [id number] 03/26/2015 21:02:00 2014 06:48:00 DIS Outpatient RAINA MARC DO [facility] SLEEP PULM, HTN, CHOKING/GASPING [id number] 02/13/2015 21:00:00 2014 06:25:00 DIS Outpatient RAINA MARC DO [facility] SLEEP CHOKING/GASPING DURING SLEEP ARRHYTHMIAS, PULM HTN [id number] 01/04/2015 10:40:00 2014 23:59:59 CLS Outpatient CHA CERDA DO [facility] RAD OSTEOPOROSIS [id number] 12/15/2014 11:28:00 2014 23:59:59 CLS Outpatient CHA CERDA DO [facility] RAD HEMATURIA [id number] 05/22/2014 07:31:00 2014 23:59:59 CLS Outpatient MARYCRUZ THOMAS [facility] CARD SINUS NODE DISFUNCTION,HLP [id number] 04/24/2014 10:47:00 2014 23:59:59 CLS Outpatient BONI GONZALEZ MD [facility] CARD PROSTATE CA [id number] 02/01/2014 12:51:00 2013 23:59:59 CLS Outpatient CHA CERDA DO [facility] OSTEOPOROSIS [id number] 12/01/2013 07:28:00 2013 23:59:59 CLS Outpatient MARYCRUZ THOMAS [facility] HYPERLIPIDEMIA PACEMAKER [id number] 01/28/2013 12:43:00 2012 23:59:59 CLS Outpatient CHA CERDA DO [facility] BODERLINE OSTEOPOROSIS [id number] 12/24/2012 10:47:00 2012 23:59:59 CLS Outpatient CHA CERDA DO [facility] RAD DORSAL KYPHOSIS,LOSS OF WEIGHT [id number] 06/30/2016 05:57:00 ACT Outpatient RAINA MARC DO [facility] PREOP LUNG MASS [id number] 06/13/2016 10:19:00 ACT Outpatient BHAVESH SARKAR [facility] ONC [id number] 06/10/2016 08:29:00 ACT Outpatient BHAVESH SARKAR [facility] RAD LUNG NODULES [id number] 05/19/2016 09:29:00 ACT Outpatient MARYCRUZ THOMAS [facility] CARD PAH,JERMAINE,DISORDER OF CAROTID ARTERY [id number] 12/03/2015 11:45:00 ACT Outpatient BONI GONZALEZ MD [facility] CARD CA PROSTATE [id number] 06/18/2015 12:55:00 ACT Outpatient CHA CERDA DO [facility] OSTEOPOROSIS
== END 2016-07-01 10:18 ==
LOC: PREOP 10:00
PROVIDERS: ATTEND Internal Medicine Critical Care Medicine
DX: Z01.818 Encounter for other preprocedural examination (principal); R91.1 Solitary pulmonary nodule

== ENCOUNTER 2016-07-02 07:01 | Day surgery (SDC) | payer MEDICARE ==
[~2016-07-02] VITALS: Ht 162.6 cm; Wt 56.7 kg
--- OUTSIDE RECORDS SUMMARY | 2016-07-02 07:07 | XMS REPORT | Continuity of Care Document ---
Author Author [facility] Organization [facility] Address Unknown Phone Unavailable Allergies Active Description Code Type Severity Reaction Onset Reported/Identified Relationship to Patient Clinical Status Yes NKDA NKDA Mild N/A 05/07/2009 Yes No Known Drug Allergies [id number] Drug Allergy Unknown N/ A 05/08/2009 Medications Problems Date Dx Coded Attending Type Code Diagnosis Diagnosed By 03/03/2014 CHA CERDA DO Ot 733.00 05/20/2014 CARLOS STERN, BONI Hanley Ot 185 05/29/2014 CARLOS STERN, BONI Hanley Ot 185 06/14/2014 COLLETTE THOMASHER L HIGH MAN Ot 272.4 06/14/2014 WILLIAM MARYCRUZ L HIGH MAN Ot 397.0 06/14/2014 GEORGIEMA, MARYCRUZ L HIGH MAN Ot 416.8 06/14/2014 BAIMA, MARYCRUZ L HIGH MAN Ot 424.0 06/14/2014 GEORGIEMA, MARYCRUZ L HIGH MAN Ot 427.81 06/14/2014 WILLIAM MARYCRUZ L HIGH MAN Ot V45.01 12/15/2014 CHA CERDA DO Ot 733.90 12/15/2014 CHA CERDA DO Ot 737.10 12/15/2014 CHA CERDA DO Ot 781.91 12/15/2014 CHA CERDA DO Ot 733.00 12/15/2014 GEORGIEMA MARYCRUZ L HIGH MAN Ot 272.4 12/15/2014 BAIMA, MARYCRUZ L HIGH MAN Ot 397.0 12/15/2014 BAIMA, MARYCRUZ L HIGH MAN Ot 427.81 12/15/2014 BAIMA, MARYCRUZ L HIGH MAN Ot V45.01 12/15/2014 BAIMA, MARYCRUZ L HIGH MAN Ot 272.4 12/15/2014 BAIMA, MARYCRUZ L HIGH MAN Ot 397.0 12/15/2014 BAIMA, MARYCRUZ L HIGH MAN Ot 416.8 12/15/2014 BAIMA, MARYCRUZ L HIGH MAN Ot 424.0 12/15/2014 GEORGIEMARYCRUZ HILARIO HIGH MAN Ot 427.81 12/15/2014 MARYCRUZ THOMAS HIGH MAN Ot V45.01 12/15/2014 CHA CERDA DO Ot [...] FACC, ALI FACP CCDS Ot Z79.899 OTHER SOLDERING MACHINE OPERATOR (CURRENT) DRUG THERAPY 12/11/2015 KIARA WILSON, [...] TEST OF CARD PAC 12/11/2015 KIARA STERN [facility], ALI FACP CCDS Ot Z79.899 OTHER SENIOR LIVING (CURRENT) DRUG THERAPY 12/13/2015 KIARA STERN [facility], ALI FACP CCDS Ot E78.5 HYPERLIPIDEMIA, UNSPECIFIED 12/13/2015 KIARA STERN [facility], ALI FACP CCDS Ot G47.33 OBSTRUCTIVE SLEEP APNEA (ADULT) (PEDIATR 12/13/2015 KIARA STERN [facility], ALI FACP CCDS Ot I27.2 OTHER SECONDARY PULMONARY HYPERTENSION 12/13/2015 KIARA STERN [facility], ALI FACP CCDS Ot I49.5 SICK SINUS SYNDROME 12/13/2015 KIARA STERN [facility], ALI FACP CCDS Ot Z45.010 ENCNTR FOR CHECKING AND TEST OF CARD PAC 12/13/2015 KIARA WILSON, ALI FACP CCDS Ot Z79.899 OTHER SOLDERING MACHINE OPERATOR (CURRENT) DRUG THERAPY 12/28/2015 BONI GONZALEZ [...] 733.00 OSTEOPOROSIS NOS 05/19/2016 GEORGIEMARYCRUZ HILARIO L HIGH MAN Ot 272.4 HYPERLIPIDEMIA NEC/NOS 05/19/2016 BAIMA, MARYCRUZ L HIGH MAN 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 05/19/2016 BAIMA, MARYCRUZ L HIGH MAN Ot 427.81 SINOATRIAL NODE DYSFUNCT 05/19/2016 BAIMACOLLETTEMARYCRUZ L HIGH MAN Ot V45.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 05/19/2016 BAIMACOLLETTEMARYCRUZ L HIGH MAN Ot 272.4 HYPERLIPIDEMIA NEC/NOS 05/19/2016 BAIMA, MARYCRUZ L HIGH MAN 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 05/19/2016 BAIMA, MARYCRUZ L HIGH MAN Ot 416.8 CHR PULMON HEART DIS NEC 05/19/2016 BAICOLLETTE HILARIOHER L HIGH MAN Ot 424.0 MITRAL VALVE DISORDER 05/19/2016 GEORGIECOLLETTE HILARIOHER L HIGH MAN Ot 427.81 SINOATRIAL NODE DYSFUNCT 05/19/2016 GEORGIEMARYCRUZ HILARIO L HIGH MAN Ot V45.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 05/19/2016 [...] PROSTATE SPECIFIC ANTIGEN [PSA] 05/20/2016 MARYCRUZ THOMAS HIGH MAN Ot G47.33 OBSTRUCTIVE SLEEP APNEA (ADULT) ( PEDIATR 05/20/2016 MARYCRUZ THOMAS L HIGH MAN Ot I27.2 OTHER SECONDARY PULMONARY HYPERTENSION 05/20/2016 MARYCRUZ THOMAS L HIGH MAN Ot I45.89 OTHER SPECIFIED CONDUCTION DISORDERS 05/20/2016 MARYCRUZ THOMAS L HIGH MAN Ot 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 05/20/2016 WILLIAMMARYCRUZ HIGH MAN Ot Z95.0 PRESENCE OF CARDIAC PACEMAKER 05/20/2016 WILLIAM MARYCRUZ [place] HIGH MAN Ot G47.33 OBSTRUCTIVE SLEEP APNEA (ADULT) ( PEDIATR 05/20/2016 BAIMARYCRUZ HILARIO HIGH MAN Ot I27.2 OTHER SECONDARY PULMONARY HYPERTENSION 05/20/2016 GEORGIEMARYCRUZ HILARIO HIGH MAN Ot I45.89 OTHER SPECIFIED CONDUCTION DISORDERS 05/20/2016 WILLIAM MARYCRUZ [place] HIGH MAN Ot 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 05/20/2016 GEORGIEMARYCRUZ HILARIO HIGH MAN Ot Z95.0 PRESENCE OF CARDIAC PACEMAKER 05/23/2016 [...] I10 ESSENTIAL (PRIMARY) HYPERTENSION 05/23/2016 ALFRED BOYKIN CHLESEA Ot I27.2 OTHER SECONDARY PULMONARY HYPERTENSION 05/23/2016 [...] NODULE 05/23/2016 CHELSEA SIMON DO Ot Z79.01 SOLDERING MACHINE OPERATOR (CURRENT) USE OF ANTICOAGULANT 05/23/2016 CHELSEA [...] PRESENCE OF CARDIAC PACEMAKER 05/25/2016 GEORGIEMARYCRUZ HILARIO HIGH MAN Ot G47.33 OBSTRUCTIVE SLEEP APNEA (ADULT) ( PEDIATR 05/25/2016 MARYCRUZ THOMAS HIGH MAN Ot I27.2 OTHER SECONDARY PULMONARY HYPERTENSION 05/25/2016 GEORGIEMARYCRUZ HILARIO HIGH MAN Ot I45.89 OTHER SPECIFIED CONDUCTION DISORDERS 05/25/2016 WILLIAM MARYCRUZ [place] HIGH MAN Ot 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 05/25/2016 WILLIAM MARYCRUZ [place] HIGH MAN Ot Z95.0 PRESENCE OF CARDIAC PACEMAKER 05/26/2016 [...] NODULE 05/26/2016 CHELSEA SIMON DO Ot Z79.01 SOLDERING MACHINE OPERATOR (CURRENT) USE OF ANTICOAGULANT 05/26/2016 CHELSEA SIMON DO Ot Z87.891 PERSONAL HISTORY OF NICOTINE DEPENDENCE 05/26/2016 CHELSEA SIMON DO Ot Z95.0 PRESENCE OF CARDIAC PACEMAKER 06/11/2016 MELLOBHAVESH Ot R91.8 OTHER NONSPECIFIC ABNORMAL FINDING OF CHINEDU 06/11/2016 MELLOBHAVESH Ot R91.8 OTHER NONSPECIFIC ABNORMAL FINDING OF [place] 06/11/2016 MELLOBHAVESH Ot R91.8 OTHER NONSPECIFIC ABNORMAL FINDING OF [place] 06/11/2016 WILLIAM MARYCRUZ L HIGH MAN Ot G47.33 OBSTRUCTIVE SLEEP APNEA (ADULT) ( PEDIATR 06/11/2016 GEORGIEMA MARYCRUZ L HIGH MAN Ot I27.2 OTHER SECONDARY PULMONARY HYPERTENSION 06/11/2016 GEORGIEMA MARYCRUZ L HIGH MAN Ot I45.89 OTHER SPECIFIED CONDUCTION DISORDERS 06/11/2016 BAIMA MARYCRUZ L HIGH MAN Ot 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 06/11/2016 MARYCRUZ THOMAS L HIGH MAN Ot Z95.0 PRESENCE OF CARDIAC PACEMAKER 06/19/2016 MARYCRUZ THOMAS L HIGH MAN Ot G47.33 OBSTRUCTIVE SLEEP APNEA (ADULT) ( PEDIATR 06/19/2016 BAIYANELIS MARYCRUZ L HIGH MAN Ot I27.2 OTHER SECONDARY PULMONARY HYPERTENSION 06/19/2016 BAIMA MARYCRUZ L HIGH MAN Ot I45.89 OTHER SPECIFIED CONDUCTION DISORDERS 06/19/2016 BAIMA MARYCRUZ L HIGH MAN Ot 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 Type Provider Facility Loc./Unit Complaint [id number] 07/01/2016 10:00:00 2016 10:18:00 DIS Outpatient RAINA MARC DO [facility] PREOP LUNG MASS [id number] 05/22/2016 16:06:00 2016 15:30:00 DIS Outpatient CHELSEA SIMON DO [facility] 4TH PNEUMONIA [id number] 12/04/2015 08:06:00 2015 15:37:00 DIS Outpatient KIARA STERN FACC, MAXIMILIANO ORTIZ CCDS [facility] CATH END OF LIFE PACEMAKER, SINUS NODE DYSFUNCTION [id number] 03/26/2015 21:02:00 2014 06:48:00 DIS Outpatient RAINA MARC DO [facility] SLEEP PULM, HTN, CHOKING/GASPING [id number] 02/13/2015 21:00:00 2014 06:25:00 DIS Outpatient RAINA MARC DO [facility] SLEEP CHOKING/GASPING DURING SLEEP ARRHYTHMIAS, PULM HTN [id number] 01/04/2015 10:40:00 2014 23:59:59 CLS Outpatient CHA CERDA DO [facility] RAD OSTEOPOROSIS [id number] 12/15/2014 11:28:00 2014 23:59:59 CLS Outpatient CHA CERDA DO [facility] RAD HEMATURIA [id number] 05/22/2014 07:31:00 2014 23:59:59 CLS Outpatient MARYCRUZ THOMAS [facility] CARD SINUS NODE DISFUNCTION,HLP [id number] 04/24/2014 10:47:00 2014 23:59:59 CLS Outpatient BONI GONZALEZ MD [facility] CARD PROSTATE CA [id number] 02/01/2014 12:51:00 2013 23:59:59 CLS Outpatient CHA CERDA DO [facility] SDC OSTEOPOROSIS [id number] 12/01/2013 07:28:00 2013 23:59:59 CLS Outpatient MARYCRUZ THOMAS [facility] CARD HYPERLIPIDEMIA PACEMAKER [id number] 01/28/2013 12:43:00 2012 23:59:59 [facility] [id number] 12/24/2012 10:47:00 2012 23:59:59 CLS Outpatient CHA CERDA DO [facility] RAD DORSAL KYPHOSIS,LOSS OF WEIGHT [id number] 07/02/2016 07:01:00 ACT Outpatient RAINA MARC DO [facility] ENDO LUNG MASS [id number] 06/13/2016 10:19:00 ACT Outpatient BHAVESH SARKAR [facility] ONC [id number] 06/10/2016 08:29:00 ACT Outpatient BHAVESH SARKAR [facility] RAD LUNG NODULES [id number] 05/19/2016 09:29:00 ACT Outpatient MARYCRUZ THOMAS [facility] CARD PAH,JERMAINE,DISORDER OF CAROTID ARTERY [id number] 12/03/2015 11:45:00 ACT Outpatient BONI GONZALEZ MD [facility] CARD CA PROSTATE [id number] 06/18/2015 12:55:00 ACT Outpatient CHA CERDA DO [facility] OSTEOPOROSIS
[2016-07-02] MEDS ORDERED: NS IV 1000 ML 1,000 ML IV STA (07:08)
--- OUTSIDE RECORDS SUMMARY | 2016-07-02 07:08 | XMS REPORT | Continuity of Care Document ---
Author Author [facility] Organization [facility] Address Unknown Phone Unavailable Allergies Active Description Code Type Severity Reaction Onset Reported/Identified Relationship to Patient Clinical Status Yes NKDA NKDA Mild N/A 05/07/2009 Yes No Known Drug Allergies [id number] Drug Allergy Unknown N/ A 05/08/2009 Medications Problems Date Dx Coded Attending Type Code Diagnosis Diagnosed By 03/03/2014 CHA CERDA DO Ot 733.00 05/20/2014 CARLOS STERN, BONI Hanley Ot 185 05/29/2014 CARLOS STERN, BONI Hanley Ot 185 06/14/2014 COLLETTE THOMASHER L PASTRY COOK HELPER Ot 272.4 06/14/2014 WILLIAM MARYCRUZ L PASTRY COOK HELPER Ot 397.0 06/14/2014 GEORGIEMA, MARYCRUZ L PASTRY COOK HELPER Ot 416.8 06/14/2014 BAIMA, MARYCRUZ L PASTRY COOK HELPER Ot 424.0 06/14/2014 GEORGIEMA, MARYCRUZ L PASTRY COOK HELPER Ot 427.81 06/14/2014 WILLIAM MARYCURZ L PASTRY COOK HELPER Ot V45.01 12/15/2014 CHA CERDA DO Ot 733.90 12/15/2014 CHA CERDA DO Ot 737.10 12/15/2014 CHA CERDA DO Ot 781.91 12/15/2014 CHA CERDA DO Ot 733.00 12/15/2014 GEORGIEMA MARYCRUZ L PASTRY COOK HELPER Ot 272.4 12/15/2014 BAIMA, MARYCRUZ L PASTRY COOK HELPER Ot 397.0 12/15/2014 BAIMA, MARYCRUZ L PASTRY COOK HELPER Ot 427.81 12/15/2014 BAIMA, MARYCRUZ L PASTRY COOK HELPER Ot V45.01 12/15/2014 BAIMA, MARYCRUZ L PASTRY COOK HELPER Ot 272.4 12/15/2014 BAIMA, MARYCRUZ L PASTRY COOK HELPER Ot 397.0 12/15/2014 BAIMA, MARYCRUZ L PASTRY COOK HELPER Ot 416.8 12/15/2014 BAIMA, MARYCRUZ L PASTRY COOK HELPER Ot 424.0 12/15/2014 GEORGIEMARYCRUZ HILARIO PASTRY COOK HELPER Ot 427.81 12/15/2014 MARYCRUZ THOMAS PASTRY COOK HELPER Ot V45.01 12/15/2014 CHA CERDA DO [...] FACC, ALI FACP CCDS Ot Z79.899 OTHER WASHER BLANKET (CURRENT) DRUG THERAPY 12/11/2015 KIARA WILSON, ALI [...] TEST OF CARD PAC 12/11/[address] [facility], ALI FACP CCDS Ot Z79.899 OTHER LONGTERM (CURRENT) DRUG THERAPY 12/13/[address] [facility], ALI FACP CCDS Ot E78.5 HYPERLIPIDEMIA, UNSPECIFIED 12/13/[address] [facility], ALI FACP CCDS Ot G47.33 OBSTRUCTIVE SLEEP APNEA (ADULT) (PEDIATR 12/13/[address] [facility], ALI FACP CCDS Ot I27.2 OTHER SECONDARY PULMONARY HYPERTENSION 12/13/[address] [facility], ALI FACP CCDS Ot I49.5 SICK SINUS SYNDROME 12/13/[address] [facility], ALI FACP CCDS Ot Z45.010 ENCNTR FOR CHECKING AND TEST OF CARD PAC 12/13/2015 KIARA WILSON, ALI FACP CCDS Ot Z79.899 OTHER WASHER BLANKET (CURRENT) DRUG THERAPY 12/28/2015 BONI GONZALEZ MD [...] 733.00 OSTEOPOROSIS NOS 05/19/2016 GEORGIEMARYCRUZ HILARIO L PASTRY COOK HELPER Ot 272.4 HYPERLIPIDEMIA NEC/NOS 05/19/2016 BAIMA, MARYCRUZ L PASTRY COOK HELPER 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 05/19/2016 BAIMA, MARYCRUZ L PASTRY COOK HELPER Ot 427.81 SINOATRIAL NODE DYSFUNCT 05/19/2016 BAIMACOLLETTEMARYCRUZ L PASTRY COOK HELPER Ot V45.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 05/19/2016 BAIMACOLLETTEMARYCRUZ L PASTRY COOK HELPER Ot 272.4 HYPERLIPIDEMIA NEC/NOS 05/19/2016 BAIMA, MARYCRUZ L PASTRY COOK HELPER 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 05/19/2016 BAIMA, MARYCRUZ L PASTRY COOK HELPER Ot 416.8 CHR PULMON HEART DIS NEC 05/19/2016 BAICOLLETTE HILARIOHER L PASTRY COOK HELPER Ot 424.0 MITRAL VALVE DISORDER 05/19/2016 GEORGIECOLLETTE HILARIOHER L PASTRY COOK HELPER Ot 427.81 SINOATRIAL NODE DYSFUNCT 05/19/2016 GEORGIEMARYCRUZ HILARIO L PASTRY COOK HELPER Ot V45.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 [...] PROSTATE SPECIFIC ANTIGEN [PSA] 05/20/2016 MARYCRUZ THOMAS PASTRY COOK HELPER Ot G47.33 OBSTRUCTIVE SLEEP APNEA (ADULT) ( PEDIATR 05/20/2016 MARYCRUZ THOAMS L PASTRY COOK HELPER Ot I27.2 OTHER SECONDARY PULMONARY HYPERTENSION 05/20/2016 MARYCRUZ THOMAS L PASTRY COOK HELPER Ot I45.89 OTHER SPECIFIED CONDUCTION DISORDERS 05/20/2016 MARYCRUZ THOMAS L PASTRY COOK HELPER Ot 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 05/20/2016 WILLIAMMARYCRUZ PASTRY COOK HELPER Ot Z95.0 PRESENCE OF CARDIAC PACEMAKER 05/20/2016 WILLIAM MARYCRUZ [place] PASTRY COOK HELPER Ot G47.33 OBSTRUCTIVE SLEEP APNEA (ADULT) ( PEDIATR 05/20/2016 BAIMARYCRUZ HILARIO PASTRY COOK HELPER Ot I27.2 OTHER SECONDARY PULMONARY HYPERTENSION 05/20/2016 GEORGIEMARYCRUZ HILARIO PASTRY COOK HELPER Ot I45.89 OTHER SPECIFIED CONDUCTION DISORDERS 05/20/2016 WILLIAM MARYCRUZ [place] PASTRY COOK HELPER Ot 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 05/20/2016 GEORGIEMARYCRUZ HILARIO PASTRY COOK HELPER Ot Z95.0 PRESENCE OF CARDIAC PACEMAKER [...] NODULE 05/23/2016 CHELSEA SIMON DO Ot Z79.01 WASHER BLANKET (CURRENT) USE OF ANTICOAGULANT 05/23/2016 CHELSEA SIMON [...] NODULE 05/23/2016 CHELSEA SIMON DO Ot Z79.01 LONGTERM (CURRENT) USE OF ANTICOAGULANT 05/23/2016 CHELSEA SIMON DO Ot Z87.891 PERSONAL HISTORY OF NICOTINE DEPENDENCE 05/23/2016 SIMON DO, CHELSEA Ot Z95.0 PRESENCE OF CARDIAC PACEMAKER 05/25/2016 GEORGIEMARYCRUZ HILARIO PASTRY COOK HELPER Ot G47.33 OBSTRUCTIVE SLEEP APNEA (ADULT) ( PEDIATR 05/25/2016 MARYCRUZ THOMAS PASTRY COOK HELPER Ot I27.2 OTHER SECONDARY PULMONARY HYPERTENSION 05/25/2016 GEORGIEMARYCRUZ HILARIO PASTRY COOK HELPER Ot I45.89 OTHER SPECIFIED CONDUCTION DISORDERS 05/25/2016 WILLIAM MARYCRUZ [place] PASTRY COOK HELPER Ot 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 05/25/2016 WILLIAM MARYCRUZ [place] PASTRY COOK HELPER Ot Z95.0 PRESENCE OF CARDIAC PACEMAKER [...] NODULE 05/26/2016 CHELSEA SIMON DO Ot Z79.01 WASHER BLANKET (CURRENT) USE OF ANTICOAGULANT 05/26/2016 CHELSEA SIMON DO Ot Z87.891 PERSONAL HISTORY OF NICOTINE DEPENDENCE 05/26/2016 CHELSEA SIMON DO Ot Z95.0 PRESENCE OF CARDIAC PACEMAKER 06/11/2016 MELLOBHAVESH Ot R91.8 OTHER NONSPECIFIC ABNORMAL FINDING OF [place] 06/11/2016 MELLOBHAVESH Ot R91.8 OTHER NONSPECIFIC ABNORMAL FINDING OF [place] 06/11/2016 MELLOBHAVESH Ot R91.8 OTHER NONSPECIFIC ABNORMAL FINDING OF [place] 06/11/2016 WILLIAM MARYCRUZ L PASTRY COOK HELPER Ot G47.33 OBSTRUCTIVE SLEEP APNEA (ADULT) ( PEDIATR 06/11/2016 GEORGIEMA MARYCRUZ L PASTRY COOK HELPER Ot I27.2 OTHER SECONDARY PULMONARY HYPERTENSION 06/11/2016 GEORGIEMA MARYCRUZ L PASTRY COOK HELPER Ot I45.89 OTHER SPECIFIED CONDUCTION DISORDERS 06/11/2016 BAIMA MARYCRUZ L PASTRY COOK HELPER Ot 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 Type Provider Facility Loc./Unit Complaint [id number] 07/01/2016 10:00:00 2016 10:18:00 DIS Outpatient RAINA MARC DO [facility] PREOP LUNG MASS [id number] 05/22/2016 16:06:00 2016 15:30:00 DIS Outpatient CHELSEA SIMON DO [facility] 4TH PNEUMONIA [id number] 12/04/2015 08:06:00 2015 15:37:00 DIS Outpatient KIARA STERN FACC, MAXIMILIANO ORTIZ CCDS [facility] CATH END OF LIFE PACEMAKER, SINUS NODE DYSFUNCTION [id number] 03/26/2015 21:02:00 2014 06:48:00 DIS Outpatient RAINA MARC DO [facility] SLEEP PULM, HTN, CHOKING/GASPING [id number] 02/13/2015 21:00:00 2014 06:25:00 DIS Outpatient RAINA MARC DO [facility] SLEEP CHOKING/GASPING DURING SLEEP ARRHYTHMIAS, PULM HTN [id number] 01/04/2015 10:40:00 2014 23:59:59 CLS Outpatient CHA CERDA DO [facility] RAD OSTEOPOROSIS [id number] 12/15/2014 11:28:00 2014 23:59:59 CLS Outpatient CHA CERDA DO [facility] RAD HEMATURIA [id number] 05/22/2014 07:31:00 2014 23:59:59 CLS Outpatient MARYCRUZ THOMAS [facility] CARD SINUS NODE DISFUNCTION,HLP [id number] 04/24/2014 10:47:00 2014 23:59:59 CLS Outpatient BONI GONZALEZ MD [facility] CARD PROSTATE CA [id number] 02/01/2014 12:51:00 2013 23:59:59 CLS Outpatient CHA CERDA DO [facility] SDC OSTEOPOROSIS [id number] 12/01/2013 07:28:00 2013 23:59:59 CLS Outpatient MARYCRUZ THOMAS [facility] CARD HYPERLIPIDEMIA PACEMAKER [id number] 01/28/2013 12:43:00 2012 23:59:59 [facility] [id number] 12/24/2012 10:47:00 2012 23:59:59 CLS Outpatient CHA CERDA DO [facility] RAD DORSAL KYPHOSIS,LOSS OF WEIGHT [id number] 07/02/2016 07:01:00 ACT Outpatient RAINA MARC DO [facility] ENDO LUNG MASS [id number] 06/13/2016 10:19:00 ACT Outpatient BHAVESH SARKAR [facility] ONC [id number] 06/10/2016 08:29:00 ACT Outpatient BHAVESH SARKAR [facility] RAD LUNG NODULES [id number] 05/19/2016 09:29:00 ACT Outpatient MARYCRUZ THOMAS [facility] CARD PAH,JERMAINE,DISORDER OF CAROTID ARTERY [id number] 12/03/2015 11:45:00 ACT Outpatient BONI GONZALEZ MD [facility] CARD CA PROSTATE [id number] 06/18/2015 12:55:00 ACT Outpatient CHA CERDA DO [facility] OSTEOPOROSIS
[2016-07-02] MEDS ORDERED: NALOXONE 0.4 MG/ML 1 ML (NARCAN) VIAL IVP PRN (07:15)
[2016-07-02] MEDS ORDERED: LIDOCAINE JELLY 2% (XYLOCAINE) 5 ML TUBE MM PRN (07:15)
[2016-07-02] MEDS ORDERED: FLUMAZENIL (ROMAZICON) 0.1 MG/ML 5 ML VIAL INJ PRN (07:15)
[2016-07-02] MEDS ORDERED: proPOfol 200 MG/20 ML (DIPRIVAN) VIAL IV ONE (07:18)
[2016-07-02] MEDS ORDERED: SUCCINYLCHOLINE INJ 100 MG/5 ML SYR ONE (07:19)
[2016-07-02] MEDS ORDERED: ONDANSETRON 4 MG/2 ML (SDV) Z0FRAN ONE (07:19)
[2016-07-02] MEDS ORDERED: fentaNYL INJECTION 100 MCG/2 ML AMP ONE (07:21)
[2016-07-02] MEDS ORDERED: LIDOCAINE PF 2% 10 ML (XYLOCAINE) AMP ONE (07:22)
[2016-07-02 07:26] VITALS: BP 109/54
--- NOTE | 2016-07-02 07:44 | Progress Note-Pre Operative ---
Pre-Operative Progress Note H&P Reviewed The H&P was reviewed, patient examined and no changes noted. Date H&P Reviewed: Jul 02, 2016 Time H&P Reviewed: 07:44 Pre-Operative Diagnosis: lung mass RAINA MARC DO Jul 02, 2016 07:44
--- NOTE | 2016-07-02 08:27 | Pulmonary Procedures ---
Pulmonary Procedures Date of Procedure Date of Service: Jul 02, 2016 Bronch Bronchoscopy with EBUS with bx of station 7 and 11R lymph nodes Preop DX: mediastinal lymphadenopathy and lung mass PostOP DX: same Complications: None Pt was sedated per anesthesia. Bronchoscopy was advanced through the ED tube and an anatomical undertaken down to the segmental bronchi bilaterally. No endobronchial lesions noted. [place] and BAL obtained from RUL EBUS was then advanced through ET tube and the mediastinum was US. Station [7] and [11R] lymph nodes were sampled via needle bx under US guidance. Pt tolerated procedure well. No complications noted. RAINA MARC DO Jul 02, 2016 08:27
--- NOTE | 2016-07-02 09:08 | Diagnostic Imaging Report ---
INDICATION: Post bronchoscopy EXAMINATION: Frontal chest obtained at 8:52 hours a.m., and compared to 05/22/16. Heart is normal in size. Pacemaker is unchanged. Aorta is tortuous. There is no change in the right perihilar. There is a small area of density in the right lateral base which may represent infiltrate or atelectasis. There are underlying chronic increased interstitial markings. There is no pneumothorax or pleural fluid. IMPRESSION: No change in small right perihilar density. No change in chronic appearing increased markings. New area of increased density in right base which may represent infiltrate versus atelectasis. There is no pneumothorax post bronchoscopy. Dictated by: Dictated on workstation # [id number]
[2016-07-02 09:15] VITALS: BP 103/57
[2016-07-02 09:45] VITALS: BP 108/62
[2016-07-02 11:09] VITALS: BP 108/62
== END 2016-07-02 09:50 | disposition home or self-care (01) ==
LOC: ENDO 07:01
PROVIDERS: ATTEND Internal Medicine Critical Care Medicine
DX: R91.8 Other nonspecific abnormal finding of lung field (principal); R59.0 Localized enlarged lymph nodes; E78.5 Hyperlipidemia, unspecified; G47.33 Obstructive sleep apnea (adult) (pediatric); Z87.891 Personal history of nicotine dependence; I10 Essential (primary) hypertension
CPT/HCPCS: 71010; 87070; 87101; 87116; 87205; 88112; 88305; 88312

== ENCOUNTER 2016-07-16 10:52 | Outpatient (RCR) | payer MEDICARE ==
--- OUTSIDE RECORDS SUMMARY | 2016-06-13 10:23 | XMS REPORT | Continuity of Care Document ---
Author Author [facility] Organization [facility] Address Unknown Phone Unavailable Allergies Active Description Code Type Severity Reaction Onset Reported/Identified Relationship to Patient Clinical Status Yes NKDA NKDA Mild N/A 05/07/2009 Yes No Known Drug Allergies [id number] Drug Allergy Unknown N/ A 05/08/2009 Medications Problems Date Dx Coded Attending Type Code Diagnosis Diagnosed By 03/03/2014 CHA CERDA DO Ot 733.00 05/20/2014 CARLOS STERN, BONI Hanley Ot 185 05/29/2014 CARLOS STERN, BONI Hanley Ot 185 06/14/2014 COLLETTE THOMASHER L STAFF SCIENTIST Ot 272.4 06/14/2014 WILLIAM MARYCRUZ L STAFF SCIENTIST Ot 397.0 06/14/2014 GEORGIEMA, MARYCRUZ L STAFF SCIENTIST Ot 416.8 06/14/2014 BAIMA, MARYCRUZ L STAFF SCIENTIST Ot 424.0 06/14/2014 GEORGIEMA, MARYCRUZ L STAFF SCIENTIST Ot 427.81 06/14/2014 WILLIAM MARYCRUZ L STAFF SCIENTIST Ot V45.01 12/15/2014 CHA CERDA DO Ot 733.90 12/15/2014 CHA CERDA DO Ot 737.10 12/15/2014 CHA CERDA DO Ot 781.91 12/15/2014 CHA CERDA DO Ot 733.00 12/15/2014 GEORGIEMA MARYCRUZ L STAFF SCIENTIST Ot 272.4 12/15/2014 BAIMA, MARYCRUZ L STAFF SCIENTIST Ot 397.0 12/15/2014 BAIMA, MARYCRUZ L STAFF SCIENTIST Ot 427.81 12/15/2014 BAIMA, MARYCRUZ L STAFF SCIENTIST Ot V45.01 12/15/2014 BAIMA, MARYCRUZ L STAFF SCIENTIST Ot 272.4 12/15/2014 BAIMA, MARYCRUZ L STAFF SCIENTIST Ot 397.0 12/15/2014 BAIMA, MARYCRUZ L STAFF SCIENTIST Ot 416.8 12/15/2014 BAIMA, MARYCRUZ L STAFF SCIENTIST Ot 424.0 12/15/2014 GEORGIEMARYCRUZ HILARIO STAFF SCIENTIST Ot 427.81 12/15/2014 MARYCRUZ THOMAS STAFF SCIENTIST Ot V45.01 12/15/2014 CHA CERDA DO Ot [...] FACC, ALI FACP CCDS Ot Z79.899 OTHER FLUID PUMP OPERATOR (CURRENT) DRUG THERAPY 12/11/2015 KIARA WILSON, ALI [...] TEST OF CARD PAC 12/11/2015 KIARA [facility], ALI FACP CCDS Ot Z79.899 OTHER FLUID PUMP OPERATOR (CURRENT) DRUG THERAPY 12/13/2015 KIARA STERN [facility], ALI FACP CCDS Ot E78.5 HYPERLIPIDEMIA, UNSPECIFIED 12/13/2015 KIARA STERN [facility], ALI FACP CCDS Ot G47.33 OBSTRUCTIVE SLEEP APNEA (ADULT) (PEDIATR 12/13/2015 KIARA STERN [facility], ALI FACP CCDS Ot I27.2 OTHER SECONDARY PULMONARY HYPERTENSION 12/13/2015 KIARA STERN [facility], ALI FACP CCDS Ot I49.5 SICK SINUS SYNDROME 12/13/2015 KIARA STERN [facility], ALI FACP CCDS Ot Z45.010 ENCNTR FOR CHECKING AND TEST OF CARD PAC 12/13/2015 KIARA WILSON, ALI FACP CCDS Ot Z79.899 OTHER FLUID PUMP OPERATOR (CURRENT) DRUG THERAPY 12/28/2015 BONI GONZALEZ MD [...] 733.00 OSTEOPOROSIS NOS 05/19/2016 GEORGIEMARYCRUZ HILARIO L STAFF SCIENTIST Ot 272.4 HYPERLIPIDEMIA NEC/NOS 05/19/2016 BAIMA, MARYCRUZ L STAFF SCIENTIST 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 05/19/2016 BAIMA, MARYCRUZ L STAFF SCIENTIST Ot 427.81 SINOATRIAL NODE DYSFUNCT 05/19/2016 BAIMACOLLETTEMARYCRUZ L STAFF SCIENTIST Ot V45.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 05/19/2016 BAIMACOLLETTEMARYCRUZ L STAFF SCIENTIST Ot 272.4 HYPERLIPIDEMIA NEC/NOS 05/19/2016 BAIMA, MARYCRUZ L STAFF SCIENTIST 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 05/19/2016 BAIMA, MARYCRUZ L STAFF SCIENTIST Ot 416.8 CHR PULMON HEART DIS NEC 05/19/2016 BAICOLLETTE HILARIOHER L STAFF SCIENTIST Ot 424.0 MITRAL VALVE DISORDER 05/19/2016 GEORGIECOLLETTE HILARIOHER L STAFF SCIENTIST Ot 427.81 SINOATRIAL NODE DYSFUNCT 05/19/2016 GEORGIEMARYCRUZ HILARIO L STAFF SCIENTIST Ot V45.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 05/19/2016 [...] PROSTATE SPECIFIC ANTIGEN [PSA] 05/20/2016 MARYCRUZ THOMAS STAFF SCIENTIST Ot G47.33 OBSTRUCTIVE SLEEP APNEA (ADULT) ( PEDIATR 05/20/2016 MARYCRUZ THOMAS L STAFF SCIENTIST Ot I27.2 OTHER SECONDARY PULMONARY HYPERTENSION 05/20/2016 MARYCRUZ THOMAS L STAFF SCIENTIST Ot I45.89 OTHER SPECIFIED CONDUCTION DISORDERS 05/20/2016 MARYCRUZ THOMAS L STAFF SCIENTIST Ot 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 05/20/2016 WILLIAMMARYCRUZ STAFF SCIENTIST Ot Z95.0 PRESENCE OF CARDIAC PACEMAKER 05/20/2016 WILLIAM MARYCRUZ [place] STAFF SCIENTIST Ot G47.33 OBSTRUCTIVE SLEEP APNEA (ADULT) ( PEDIATR 05/20/2016 BAIMARYCRUZ HILARIO STAFF SCIENTIST Ot I27.2 OTHER SECONDARY PULMONARY HYPERTENSION 05/20/2016 GEORGIEMARYCRUZ HILARIO STAFF SCIENTIST Ot I45.89 OTHER SPECIFIED CONDUCTION DISORDERS 05/20/2016 WILLIAM MARYCRUZ [place] STAFF SCIENTIST Ot 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 05/20/2016 GEORGIEMARYCRUZ HILARIO STAFF SCIENTIST Ot Z95.0 PRESENCE OF CARDIAC PACEMAKER 05/23/2016 ALFRED BOYKIN CHELSEA Ot C61 MALIGNANT NEOPLASM OF PROSTATE 05/23/2016 ELLEN SIMON DOI Ot D64.9 ANEMIA, UNSPECIFIED 05/23/2016 ALFRED BOYKIN CHELSEA Ot E78.00 PURE HYPERCHOLESTEROLEMIA, UNSPECIFIED 05/23/2016 ALFRED BOYKIN HCELSEA Ot E87.1 HYPO-OSMOLALITY AND HYPONATREMIA 05/23/2016 ALFRED [...] OBSTRUCTIVE PULMON DISEASE W ACU 05/23/2016 ALFRED BOYKIN CHELSEA Ot R09.02 HYPOXEMIA 05/23/2016 ALFRED BOYKIN CEHLSEA Ot R64 CACHEXIA 05/23/2016 CHELSEA SIMON DO Ot R91.1 SOLITARY PULMONARY NODULE 05/23/2016 CHELSEA SIMON DO Ot Z79.01 FLUID PUMP OPERATOR (CURRENT) USE OF ANTICOAGULANT 05/23/2016 CHELSEA SIMON [...] CHRONIC OBSTRUCTIVE PULMON DISEASE W ACU 05/23/2016 CHELSEA SIMON DO Ot R09.02 HYPOXEMIA 05/23/2016 CHELSEA SIMON DO Ot R64 CACHEXIA 05/23/2016 CHELSEA SIMON DO Ot R91.1 SOLITARY PULMONARY NODULE 05/23/2016 CHELSEA SIMON DO Ot Z79.01 USP (CURRENT) USE OF ANTICOAGULANT 05/23/2016 CHELSEA SIMON DO Ot Z87.891 PERSONAL HISTORY OF NICOTINE DEPENDENCE 05/23/2016 SIMON DO, CHELSEA Ot Z95.0 PRESENCE OF CARDIAC PACEMAKER 05/25/2016 GEORGIEMARYCRUZ HILARIO STAFF SCIENTIST Ot G47.33 OBSTRUCTIVE SLEEP APNEA (ADULT) ( PEDIATR 05/25/2016 MARYCRUZ THOMAS STAFF SCIENTIST Ot I27.2 OTHER SECONDARY PULMONARY HYPERTENSION 05/25/2016 GEORGIEMARYCRUZ HILARIO STAFF SCIENTIST Ot I45.89 OTHER SPECIFIED CONDUCTION DISORDERS 05/25/2016 WILLIAM MARYCRUZ [place] STAFF SCIENTIST Ot 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 05/25/2016 WILLIAM MARYCRUZ [place] STAFF SCIENTIST Ot Z95.0 PRESENCE OF CARDIAC PACEMAKER 05/26/2016 [...] DOI Ot R91.1 SOLITARY PULMONARY NODULE 05/26/2016 CHELSEA SIMON DO Ot Z79.01 FLUID PUMP OPERATOR (CURRENT) USE OF ANTICOAGULANT 05/26/2016 SIMONCHELSEA ARAUJO DO Ot Z87.891 PERSONAL HISTORY OF NICOTINE DEPENDENCE 05/26/2016 SIMONCHELSEA ARAUJO DO Ot Z95.0 PRESENCE OF CARDIAC PACEMAKER 06/11/2016 MELLOBHAVESH MCCORMACK Ramy Ot R91.8 OTHER NONSPECIFIC ABNORMAL FINDING OF CHINEDU 06/11/2016 MELLOADINASANDRA Ramy Ot R91.8 OTHER NONSPECIFIC ABNORMAL FINDING OF [place]ED[place] 06/11/2016 BHAVESH SARKAR Ramy Ot R91.8 OTHER NONSPECIFIC ABNORMAL FINDING OF [place] 06/11/2016 GEORGIEYANELIS MARYCRUZ Audrey STAFF SCIENTIST Ot G47.33 OBSTRUCTIVE SLEEP APNEA (ADULT) ( PEDIATR 06/11/2016 GEORGIEYANELIS MARYCRUZ L STAFF SCIENTIST Ot I27.2 OTHER SECONDARY PULMONARY HYPERTENSION 06/11/2016 GEORGIEYANELIS MARYCRUZ Audrey STAFF SCIENTIST Ot I45.89 OTHER SPECIFIED CONDUCTION DISORDERS 06/11/2016 GEORGIEYANELIS MARYCRUZ Audrey STAFF SCIENTIST Ot 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 Type Provider Facility Loc./Unit Complaint [id number] 05/22/2016 16:06:00 2016 15:30:00 DIS Outpatient CHELSEA SIMON DO [facility] 4TH PNEUMONIA [id number] 12/04/2015 08:06:00 2015 15:37:00 DIS Outpatient KIARA STERN FACC, MAXIMILIANO ORTIZ CCDS [facility] END OF LIFE PACEMAKER, SINUS NODE DYSFUNCTION [id number] 03/26/2015 21:02:00 2014 06:48:00 DIS Outpatient RAINA MARC DO [facility] SLEEP PULM, HTN, CHOKING/GASPING [id number] 02/13/2015 21:00:00 2014 06:25:00 DIS Outpatient RAINA MARC DO [facility] SLEEP CHOKING/GASPING DURING SLEEP ARRHYTHMIAS, PULM HTN [id number] 01/04/2015 10:40:00 2014 23:59:59 CLS Outpatient CHA CERDA DO [facility] RAD OSTEOPOROSIS [id number] 12/15/2014 11:28:00 2014 23:59:59 CLS Outpatient CHA CERDA DO [facility] RAD HEMATURIA [id number] 05/22/2014 07:31:00 2014 23:59:59 CLS Outpatient MARYCRUZ THOMAS [facility] CARD SINUS NODE DISFUNCTION,HLP [id number] 04/24/2014 10:47:00 2014 23:59:59 CLS Outpatient BONI GONZALEZ MD [facility] CARD PROSTATE CA [id number] 02/01/2014 12:51:00 2013 23:59:59 CLS Outpatient CERDA DO, CHA J [facility] OSTEOPOROSIS [id number] 12/01/2013 07:28:00 2013 23:59:59 CLS Outpatient MARYCRUZ THOMAS [facility] CARD HYPERLIPIDEMIA PACEMAKER [id number] 01/28/2013 12:43:00 2012 23:59:59 CLS Outpatient CHA CERDA DO [facility] BODERLINE OSTEOPOROSIS [id number] 12/24/2012 10:47:00 2012 23:59:59 CLS Outpatient CHA CERDA DO [facility] RAD DORSAL KYPHOSIS,LOSS OF WEIGHT [id number] 06/12/2016 14:26:00 PEN Preadmit BHAVESH SARKAR [facility] ONC [id number] 06/10/2016 08:29:00 ACT Outpatient BHAVESH SARKAR [facility] RAD LUNG NODULES [id number] 05/19/2016 09:29:00 ACT Outpatient MARYCRUZ THOMAS [facility] CARD PAH,JERMAINE,DISORDER OF CAROTID ARTERY [id number] 12/03/2015 11:45:00 ACT Outpatient BONI GONZALEZ MD [facility] CARD CA PROSTATE [id number] 06/18/2015 12:55:00 ACT Outpatient CHA CERDA DO [facility] OSTEOPOROSIS
[2016-07-16 11:06] LABS: BASOPHILS # (AUTO) 0.1 10^3/uL (0.0-0.1); BASOPHILS % (AUTO) 1 % (0-10); EOSINOPHILS # (AUTO) 0.5 10^3/uL (0.0-0.3); EOSINOPHILS % (AUTO) 6 % (0-10); LYMPHOCYTES # (AUTO) 2.2 X 10^3 (1.0-4.0); LYMPHOCYTES % (AUTO) 28 % (12-44); MEAN CORPUSCULAR HEMOGLOBIN 28 PG (25-34); MEAN CORPUSCULAR HGB CONC 31 G/DL (32-36); MEAN CORPUSCULAR VOLUME 89 FL (80-99); MONOCYTES # (AUTO) 0.7 X 10^3 (0.0-1.0); MONOCYTES % (AUTO) 9 % (0-12); NEUTROPHILS # (AUTO) 4.4 X 10^3 (1.8-7.8); NEUTROPHILS % (AUTO) 56 % (42-75); PLATELET COUNT 179 10^3/uL (130-400); RED BLOOD COUNT 4.64 10^6/uL (4.35-5.85); RED CELL DISTRIBUTION WIDTH 17.1 % (10.0-14.5); WHITE BLOOD COUNT 7.8 10^3/uL (4.3-11.0)
[2016-07-16 11:37] LABS: ALANINE AMINOTRANSFERASE 23 U/L (0-55); ALBUMIN 4.1 G/DL (3.2-4.5); ANION GAP 7 MMOL/L (5-14); ASPARTATE AMINO TRANSFERASE 26 U/L (5-34); BILIRUBIN,TOTAL 0.6 MG/DL (0.1-1.0); BLOOD UREA NITROGEN 19 MG/DL (7-18); BUN/CREATININE RATIO 19; CALCIUM 9.6 MG/DL (8.5-10.1); CARBON DIOXIDE 30 MMOL/L (21-32); CHLORIDE 102 MMOL/L (98-107); GFR ESTIMATED > 60; GLUCOSE 88 MG/DL (70-105); POTASSIUM 4.9 MMOL/L (3.6-5.0); SODIUM 139 MMOL/L (135-145)
== END 2016-09-11 | disposition home or self-care (01) ==
LOC: ONC 10:52
PROVIDERS: ATTEND Internal Medicine Hematology & Oncology
DX: R91.1 Solitary pulmonary nodule (principal); J44.9 Chronic obstructive pulmonary disease, unspecified; G47.33 Obstructive sleep apnea (adult) (pediatric); I48.91 Unspecified atrial fibrillation; Z85.46 Personal history of malignant neoplasm of prostate; Z95.0 Presence of cardiac pacemaker; Z79.01 Long term (current) use of anticoagulants
CPT/HCPCS: 36415; 80053; 85025; 99213

== ENCOUNTER 2016-09-22 09:46 | Outpatient (RCR) | payer MEDICARE ==
[2016-09-22 10:03] LABS: BASOPHILS % (AUTO) 0 % (0-10); EOSINOPHILS # (AUTO) 0.4 10^3/uL (0.0-0.3); EOSINOPHILS % (AUTO) 6 % (0-10); LYMPHOCYTES # (AUTO) 2.4 X 10^3 (1.0-4.0); LYMPHOCYTES % (AUTO) 33 % (12-44); MEAN CORPUSCULAR HEMOGLOBIN 29 PG (25-34); MEAN CORPUSCULAR HGB CONC 32 G/DL (32-36); MEAN CORPUSCULAR VOLUME 91 FL (80-99); MEAN PLATELET VOLUME 12.5 FL (7.4-10.4); MONOCYTES # (AUTO) 0.4 X 10^3 (0.0-1.0); MONOCYTES % (AUTO) 6 % (0-12); NEUTROPHILS % (AUTO) 55 % (42-75); PLATELET COUNT 148 10^3/uL (130-400); RED BLOOD COUNT 4.57 10^6/uL (4.35-5.85); RED CELL DISTRIBUTION WIDTH 15.8 % (10.0-14.5); WHITE BLOOD COUNT 7.2 10^3/uL (4.3-11.0)
[2016-09-22 11:17] LABS: ALANINE AMINOTRANSFERASE 21 U/L (0-55); ANION GAP 9 MMOL/L (5-14); ASPARTATE AMINO TRANSFERASE 24 U/L (5-34); BILIRUBIN,TOTAL 0.5 MG/DL (0.1-1.0); BLOOD UREA NITROGEN 18 MG/DL (7-18); BUN/CREATININE RATIO 16; CALCIUM 9.6 MG/DL (8.5-10.1); CARBON DIOXIDE 30 MMOL/L (21-32); CHLORIDE 103 MMOL/L (98-107); CREATININE SERUM 1.15 MG/DL (0.60-1.30); GFR ESTIMATED > 60; GLUCOSE 115 MG/DL (70-105); SODIUM 142 MMOL/L (135-145); TOTAL PROTEIN 7.4 G/DL (6.4-8.2)
== END 2016-12-21 | disposition home or self-care (01) ==
LOC: ONC 09:46
PROVIDERS: ATTEND Internal Medicine Hematology & Oncology
DX: R91.1 Solitary pulmonary nodule (principal); Z85.46 Personal history of malignant neoplasm of prostate; R97.21 Rising PSA following treatment for malignant neoplasm of prostate; J44.9 Chronic obstructive pulmonary disease, unspecified; G47.33 Obstructive sleep apnea (adult) (pediatric); I48.91 Unspecified atrial fibrillation; I27.2 Other secondary pulmonary hypertension; E78.5 Hyperlipidemia, unspecified; Z95.0 Presence of cardiac pacemaker; Z79.01 Long term (current) use of anticoagulants
CPT/HCPCS: 36415; 80053; 85025; 99213

== ENCOUNTER → 2016-09-22 | Outpatient (CLI) | payer MEDICARE ==
--- NOTE | 2016-09-22 11:16 | Diagnostic Imaging Report ---
PROCEDURE: CT chest without contrast. TECHNIQUE: Multiple contiguous axial images were obtained through the chest without the use of intravenous contrast. INDICATION: Followup lung nodules. COMPARISON: 05/23/2016. FINDINGS: In the right suprahilar region, there is a mixed solid and groundglass opacity nodule seen measuring 1.2 cm in size. There is less density associated with it at this point and improved surrounding previously seen halo and borderline spiculation. There is also improvement in previously seen bilateral lung apex subsegmental consolidation. May relate to pneumonitis. There is remaining scarring suggested. A right upper lobe small nodule measuring 3 mm is again seen in the lateral aspect of the suprahilar region. Again noted advanced emphysema changes with large bulla in the lateral aspect of the right lower lobe measuring 8.2 x 4 x 6 cm. There is interstitial scarring. The mediastinum demonstrate no mass or significantly enlarged lymph nodes. No obvious hilar mass adjacent to the unopacified hilar vessels on this exam seen. No axillary lymphadenopathy. There is a pacemaker with two leads seen. The heart size is normal. No pericardial or pleural effusion. The osseous structures demonstrate mild degenerative changes. Sections in the upper abdomen appear grossly unremarkable. IMPRESSION: 1. A 1.2 cm right suprahilar mixed density nodule is stable in size, but is associated with decreased internal density and surrounding halo. This might indicate benign etiology, however it is still indeterminate. Continued followup recommended. 2. Advanced emphysema. Dictated by: Dictated on workstation # [id number]
== END ==
LOC: RAD 07:18
PROVIDERS: ATTEND Nurse Practitioner Family
DX: R91.1 Solitary pulmonary nodule (principal); J43.9 Emphysema, unspecified
CPT/HCPCS: 71250

== ENCOUNTER → 2017-01-19 | Outpatient (CLI) | payer MEDICARE ==
[~2017-01-19] MED LIST changes: +CATHETER FLUSH 10 ML SYR IV PRN; +IOHEXOL 350 MG/ML 100 ML (OMNIPAQUE 350) VIAL IV ONE; +NS 100 ML (IVPB) BAG IV ONE
[2017-01-19 09:56] LABS: BLOOD UREA NITROGEN 21 MG/DL (7-18); BUN/CREATININE RATIO 20; CREATININE SERUM 1.04 MG/DL (0.60-1.30); GFR ESTIMATED > 60
--- NOTE | 2017-01-19 15:48 | Diagnostic Imaging Report ---
PROCEDURE: CT chest with contrast only. TECHNIQUE: Multiple contiguous axial images were obtained through the chest after administration of intravenous contrast. INDICATION: Followup lung nodule. 75 mL of Omnipaque 350 is administered intravenously. FINDINGS: There is a right suprahilar mixed-density nodule measuring 1.5 x 1 cm compared to 1.2 x 1.1 cm on the previous exam. Overall, there is no significant change seen when compared to 09/22/2016. There is another nodule in the right upper lobe measuring 3 mm, similar to the prior exam, axial image 21. Background prominent emphysema changes are again noted with a prominent large bulla in the right lower lobe near the lung base measuring 8.2 cm. Mild interstitial scarring is seen in the lung bases and the apices. No significant consolidation, mass, or new nodule is identified. The heart size is normal. No pericardial or pleural effusion. Prominent atherosclerotic coronary artery calcifications seen. The thoracic aorta is normal in caliber. There is no mediastinal mass. No significantly enlarged lymph nodes are seen in the mediastinum. There is a 1.1 cm minimally enlarged right hilar lymph node which appears smaller compared to 05/23/2016. It is not well seen on the unenhanced exam of 09/22/2016. There is a pacemaker with two cardiac leads seen. The osseous structures demonstrate prominent degenerative changes. Sections in the upper abdomen demonstrate no significant abnormality. IMPRESSION: 1. No significant change in mixed-density 1.5 cm right suprahilar nodule. Another followup exam in 9-12 months is recommended to ensure longer-term stability. 2. Advanced emphysema. 3. Nonspecific minimally enlarged 1.1 cm right hilar lymph node. Dictated by: Dictated on workstation # [id number]
== END ==
LOC: RAD 09:17
PROVIDERS: ATTEND Nurse Practitioner Family
DX: R91.1 Solitary pulmonary nodule (principal); J43.9 Emphysema, unspecified; R59.0 Localized enlarged lymph nodes
CPT/HCPCS: 36415; 71260; 82565; 84520

== ENCOUNTER → 2017-06-19 | Outpatient (CLI) | payer MEDICARE ==
[~2017-06-19] VITALS: Ht 162.6 cm; Wt 56.7 kg
[~2017-06-19] MED LIST changes: -CATHETER FLUSH 10 ML SYR IV PRN; -IOHEXOL 350 MG/ML 100 ML (OMNIPAQUE 350) VIAL IV ONE; +NAPR-915 PO; -NAPR500T3 PO; -NS 100 ML (IVPB) BAG IV ONE; +ZOLEDRONATE 5 MG/100 ML (RECLAST) BTL IV ONE
[2017-06-19 12:50] VITALS: BP 105/53
== END ==
LOC: SDC 12:42
PROVIDERS: ATTEND Internal Medicine
DX: M81.0 Age-related osteoporosis without current pathological fracture (principal)
CPT/HCPCS: 96365

== ENCOUNTER → 2018-01-18 | Outpatient (CLI) | payer MEDICARE ==
[~2018-01-18] MED LIST changes: -BICA50TA PO; +BICA50TA5 PO; +CATHETER FLUSH 10 ML SYR IV PRN; +IOHEXOL 350 MG/ML 100 ML (OMNIPAQUE 350) VIAL IV ONE; +NS 250 ML (IVPB) BAG IV ONE; -ZOLEDRONATE 5 MG/100 ML (RECLAST) BTL IV ONE
[2018-01-18 09:36] LABS: BUN/CREATININE RATIO 20; CREATININE SERUM 0.96 MG/DL (0.60-1.30); GFR ESTIMATED > 60
--- NOTE | 2018-01-18 12:28 | Diagnostic Imaging Report ---
PROCEDURE: CT chest with contrast only. TECHNIQUE: Multiple contiguous axial images were obtained through the chest after administration of intravenous contrast. INDICATION: Followup lung nodules. Compared 01/19/2017 as well as 05/23/2016. FINDINGS: Over the comparison interval, there has been continued improvement and now near complete resolution of the somewhat elongated mixed density opacity in the suprahilar right upper lobe now only perceptible when reviewed in lung windows without a soft tissue component. Its maximal extent is roughly 1.5 x 0.9 cm. Most recently when measured along the same axis, the dimensions would have been 2.1 x 1.1 cm and on the more remote comparison 3.6 x 1.7 cm. Findings are consistent with resolved inflammatory process and improvements in regional scarring and/or atelectasis. Given the interval changes, it is felt to require no further followup. Biapical pleural-parenchymal scarring greater right with air trapping and scattered cyst formation and predominantly right basilar bullous disease unchanged. Symmetrical hyperexpansion of the lungs persists with no thoracic lymphadenopathy, effusion or pneumothorax. Visualized upper abdomen nonacute. IMPRESSION: Serial resolving now airspace nodular density in suprahilar right upper lobe consistent with resolved inflammatory process and improvements in regional scarring or atelectasis. No suspicious mass. No adverse development in this patient with background COPD. Dictated by: Dictated on workstation # [id number]
== END ==
LOC: RAD 08:56
PROVIDERS: ATTEND Internal Medicine Critical Care Medicine
DX: R91.8 Other nonspecific abnormal finding of lung field (principal); J98.4 Other disorders of lung; J30.9 Allergic rhinitis, unspecified
CPT/HCPCS: 36415; 71260; 82565; 84520

== ENCOUNTER → 2018-02-10 | Outpatient (CLI) | payer MEDICARE ==
[~2018-02-10] MED LIST changes: -CATHETER FLUSH 10 ML SYR IV PRN; -IOHEXOL 350 MG/ML 100 ML (OMNIPAQUE 350) VIAL IV ONE; -NS 250 ML (IVPB) BAG IV ONE
== END ==
LOC: CARD 11:21
PROVIDERS: ATTEND Nurse Practitioner Family
DX: I27.20 Pulmonary hypertension, unspecified (principal); I49.5 Sick sinus syndrome; I48.0 Paroxysmal atrial fibrillation
CPT/HCPCS: 93306

== ENCOUNTER → 2019-02-01 | Outpatient (CLI) | payer MEDICARE ==
--- NOTE | 2019-02-01 09:27 | Diagnostic Imaging Report ---
PROCEDURE: CT chest without contrast. TECHNIQUE: Multiple contiguous axial images were obtained through the chest without the use of intravenous contrast. Auto Exposure Controls were utilized during the CT exam to meet ALARA standards for radiation dose reduction. INDICATION: Pulmonary nodule. COMPARISON: 01/18/2018 and 01/19/2017. FINDINGS: A pacer device is present with a battery pack overlying the left chest. A 1.4 cm rounded hypodensity is noted within the right hilar region, appearing new from the prior examination (series 3, image 83). This is concerning for developing right hilar adenopathy. Additionally, right tracheobronchial adenopathy is also likely; however, evaluation for adenopathy is limited secondary to the lack of intravenous contrast. There are moderate scattered vascular calcifications within the thoracic aorta and its branch vessels including within the coronary arteries. No aneurysmal dilatation of the thoracic aorta. The heart is within normal limits in size. No pericardial effusion. Advanced background emphysematous changes are again noted with associated pulmonary hyperinflation and mild background interstitial lung disease. There is a calcified granuloma within the left upper lobe. Mild left basilar scarring is noted. Minimal bronchiectatic changes within the left lower lobe are identified. An irregular spiculated mass is now identified within the right upper lobe measuring 3.7 x 3.3 cm and extends nearly 8 cm in the cranial to caudal dimension. This extends from the right hilar region to the right lung apex. Some internal hyperdensity is present within this lesion. Adjacent interstitial opacities are seen about this location. A new 0.7 cm pulmonary nodule has also developed within the right upper lobe (series 3, image 28). The previously noted right upper lobe irregular pulmonary nodule (axial image 46) is again identified and stable measuring approximately 1.3 cm. This does not appear significantly changed from the prior examination although has decreased in size since May 2016. There is an additional new 0.7 cm pulmonary nodule within the central aspect of the right upper lobe (axial image 46). There is a new 0.7 cm nodule within the anterior aspect of the right upper lobe (axial image 70). A 0.4 cm right upper lobe pulmonary nodule (axial image 39) is new from the prior examination. The left renal cyst is again identified. Otherwise, the minimally visualized portions of the upper abdomen are grossly unremarkable. There are scattered osseous degenerative changes without acute osseous abnormality. IMPRESSION: A large spiculated right upper lobe mass is concerning for malignancy until proven otherwise. This is associated with several additional scattered pulmonary nodules within the right upper lobe which are likely related to satellite lesions. Additionally, there appears to be mediastinal and right hilar adenopathy although this is not optimally visualized secondary to the lack of intravenous contrast. Tissue sampling is recommended for further evaluation. Severe background emphysematous changes. The previously noted irregular right upper lobe pulmonary nodule measuring 1.3 cm is stable from the examination of 1 year prior although has decreased in size since the examination from 2 years ago. Additional post surgical and chronic findings as above. Message left at 9 a.m. Report faxed at 9:26 a.m. Dictated by: Dictated on workstation # [id number]
== END ==
LOC: RAD 07:57
PROVIDERS: ATTEND Nurse Practitioner Family
DX: J43.9 Emphysema, unspecified (principal); I70.0 Atherosclerosis of aorta; I25.10 Atherosclerotic heart disease of native coronary artery without angina pectoris; J84.9 Interstitial pulmonary disease, unspecified; J84.10 Pulmonary fibrosis, unspecified; G47.33 Obstructive sleep apnea (adult) (pediatric); J30.9 Allergic rhinitis, unspecified; R59.0 Localized enlarged lymph nodes; R91.8 Other nonspecific abnormal finding of lung field; M19.90 Unspecified osteoarthritis, unspecified site
CPT/HCPCS: 71250

== ENCOUNTER 2019-02-10 05:29 | Outpatient (CLI) | payer MEDICARE ==
[~2019-02-10] VITALS: Ht 162 cm; Wt 52.2 kg
[2019-02-10] MEDS ORDERED: DABI150C5 PO (12:01)
== END 2019-02-10 12:04 | disposition home or self-care (01) ==
LOC: PREOP 05:29
PROVIDERS: ATTEND Internal Medicine Critical Care Medicine
DX: Z01.818 Encounter for other preprocedural examination (principal)

== ENCOUNTER → 2019-02-25 | Outpatient (CLI) | payer MEDICARE ==
[~2019-02-25] MED LIST changes: +CATHETER FLUSH 10 ML SYR IV PRN; +HOLD METFORMIN - RECEIVED CONTRAST 20 ML VIAL IV SCH; +IOHEXOL 350 MG/ML 100 ML (OMNIPAQUE 350) VIAL IV ONE; +NS 100 ML (IVPB) BAG IV ONE
[2019-02-25 07:37] LABS: BUN/CREATININE RATIO 18; CREATININE SERUM 1.05 MG/DL (0.60-1.30); GFR ESTIMATED > 60
--- NOTE | 2019-02-25 09:45 | Diagnostic Imaging Report ---
PROCEDURE: CT abdomen with contrast only. TECHNIQUE: Multiple contiguous axial images were obtained through the abdomen after the administration of intravenous contrast. Auto Exposure Controls were utilized during the CT exam to meet ALARA standards for radiation dose reduction. INDICATION: Bronchoscopy results suspicious for renal cell carcinoma. FINDINGS: There is a tiny benign unilocular simple Bosniak 1 cyst off the upper pole of the left kidney measuring 1.5 cm in diameter. This is decreased in size from a chest CT performed in January 2018 and it had measured 1.7 cm. No complex, solid or enhancing renal mass. Kidneys are unobstructed. The adrenal glands are negative. The atherosclerotic aorta is nonaneurysmal. There is no mesenteric or retroperitoneal lymphadenopathy. There is mildly elevated colonic fecal load. Constipation could not be excluded. Seen only on the dynamic images is some focal hyperenhancement of the left hepatic lobe anteriorly. This is imperceptible on the delayed images and is believed to reflect incidental heterogeneous perfusion. No finding is felt suggestive of a liver mass. No bile duct dilatation. Spleen is negative. There is no bowel obstruction. There is no lymphadenopathy. There is no suspicious lytic or sclerotic bone lesion. IMPRESSION: 1. No findings of renal cell carcinoma or other abdominal primary or metastatic lesions. 2. Simple benign Bosniak 1 left renal cyst is decreased in size from a comparison. 3. Constipation without obstruction. 4. Nonaneurysmal atherosclerosis, basilar COPD. No acute-appearing abdominal abnormality. Dictated by: Dictated on workstation # [id number]
== END ==
LOC: RAD 07:02
PROVIDERS: ATTEND Nurse Practitioner Family
DX: N28.1 Cyst of kidney, acquired (principal); K59.00 Constipation, unspecified; J44.9 Chronic obstructive pulmonary disease, unspecified; I70.0 Atherosclerosis of aorta
CPT/HCPCS: 36415; 74160; 82565; 84520

== ENCOUNTER → 2019-03-01 | Outpatient (CLI) | payer MEDICARE ==
[~2019-03-01] MED LIST changes: -CATHETER FLUSH 10 ML SYR IV PRN; -HOLD METFORMIN - RECEIVED CONTRAST 20 ML VIAL IV SCH; -IOHEXOL 350 MG/ML 100 ML (OMNIPAQUE 350) VIAL IV ONE; -NS 100 ML (IVPB) BAG IV ONE
--- NOTE | 2019-03-01 13:08 | Diagnostic Imaging Report ---
INDICATION: Spiculated right upper lobe lung mass. TECHNIQUE: The serum blood glucose level at the time of injection was 79 mg/dL. The patient was administered 13.1 mCi of F-18 FDG intravenously in the right hand and PET imaging was performed from the top of the skull to the mid-thighs. Noncontrast CT was also performed for attenuation correction and anatomic correlation. COMPARISON: No prior PET studies are available for comparison. Comparison is made with a prior CT chest from 02/01/[address] abdomen from 02/25/2019. FINDINGS: There is symmetric activity throughout the brain. The soft tissues of the neck are unremarkable apart from a small focus of increased uptake in the right supraclavicular region. This corresponds to a probable supraclavicular node measuring approximately 8 mm in diameter. The SUV max is approximately 5.8. The previously noted spiculated mass in the right upper lobe is hypermetabolic with an SUV max of approximately 16.5. Hypermetabolic mediastinal nodes are present with the largest in the paratracheal location inferiorly with an SUV maximum of approximately 17. This is approximately 2.1 cm in diameter. Right hilar hypermetabolism is also present, greatest in the right infrahilar region where a probable lymph node demonstrates an SUV max of approximately 10.6. This lymph node measures 1.6 cm. The left hilum is unremarkable. The remainder of the pulmonary parenchyma is unremarkable. The abdomen and pelvis demonstrate physiologic activity within the GI and tracts. There is an area of somewhat heterogeneous density in the fat of the right flank region. This measures 3.1 x 1.9 cm. This does shows some mild FDG avidity reaching 4.1 SUV and is indeterminate. No other suspicious foci are seen. IMPRESSION: The right upper lobe mass demonstrates significant FDG avidity, consistent with a primary bronchogenic carcinoma. There are hypermetabolic lymph nodes in the right supraclavicular region as well as within the mediastinum and right hilum, consistent with metastatic disease. No other pulmonary parenchymal areas of hypermetabolism are seen. There is an area of indeterminate uptake involving the subcutaneous fat in the right flank. Dictated by: Dictated on workstation # [id number]
== END ==
LOC: RAD 08:03
PROVIDERS: ATTEND Internal Medicine Critical Care Medicine
DX: R91.8 Other nonspecific abnormal finding of lung field (principal)

== ENCOUNTER 2019-03-09 08:36 | Outpatient (CLI) | payer MEDICARE ==
[~2019-03-09] VITALS: Ht 163 cm; Wt 54.8 kg
[2019-03-09] VITALS (12 sets, daily range): BP systolic 97–125; BP diastolic 46–67
[2019-03-09] MEDS ORDERED: NS IV 1000 ML 1,000 ML IV STA (08:40)
[2019-03-09] MEDS ORDERED: LIDOCAINE 1% INJ 20 ML 20 ML VIAL INJ ONE (08:45)
[2019-03-09] MEDS ORDERED: MIDAZOLAM 2 MG/2 ML (VERSED) VIAL IVP ONE (08:45)
[2019-03-09] MEDS ORDERED: fentaNYL INJECTION 100 MCG/2 ML AMP IVP ONE (08:45)
[2019-03-09 09:02] LABS: HEMOGLOBIN 13.9 G/DL (13.3-17.7); RED CELL DISTRIBUTION WIDTH 15.2 % (10.0-14.5); WHITE BLOOD COUNT 10.5 10^3/uL (4.3-11.0)
[2019-03-09 09:16] LABS: INR 0.9 (0.8-1.4); PROTHROMBIN TIME PATIENT 12.7 SEC (12.2-14.7)
--- NOTE | 2019-03-09 11:20 | NUR ---
PT LAYING ON RIGHT SIDE. DRESSING D/I. DENIES PAIN OR C/O.
--- NOTE | 2019-03-09 11:24 | Diagnostic Imaging Report ---
INDICATION: Right flank density. Patient presents for CT-guided biopsy. TECHNIQUE: Patient was brought to the CT suite and placed on the table in the left side down decubitus position. Axial imaging through the abdomen and pelvis was performed to evaluate appropriate entry site. The right flank was then prepped and draped in usual sterile fashion. A small amount of 1% lidocaine was utilized for local anesthesia. Study was performed utilizing conscious sedation with radiology nursing and constant patient monitoring. Patient was given a total of 50 mcg of fentanyl intravenously. Total procedure time was 10 minutes. 18-gauge coaxial Temno needle was advanced, placed with its tip in the area of density in the subcutaneous fat of the right flank. Total of three core biopsies were obtained. Next, needle was repositioned in a slightly different region of the density and two additional core biopsies were obtained. Needle was removed and hemostasis was obtained using manual compression. Patient tolerated the procedure well and left the department in stable condition. IMPRESSION: Successful CT-guided biopsy of right flank density, utilizing conscious sedation. Pathology results are currently pending. Dictated by: Dictated on workstation # [id number]
[2019-03-09] MEDS ORDERED: HYDROcodone/APAP 5 MG/325 MG (LORTAB) TAB PO PRN (11:30)
--- NOTE | 2019-03-09 12:00 | NUR ---
PT LAYING FLAT ON BACK. NO SX/SX DISTRESS. DRSG REMAINS D/I.
--- NOTE | 2019-03-09 13:00 | NUR ---
PT SITTING UP IN BED. SLIGHTLY MORE SWELLING NOTED ON RIGHT LOWER BACK BELOW DRSG WHEN COMPARED TO LEFT LOWER BACK. PT CONT TO DENY PAIN OR TENDERNESS AT THAT SITE. DRSG D/I. NO EXTERNAL BLEEDING NOTED. ERIC DOMINGO TO BEDSIDE TO EVALUATE. NO CONCERNS NOTED BY HER. NOT CONCERNED FOR HEMATOMA AT THIS TIME. PT ET GIVEN DC INSTRUCTS ET COMPLICATIONS TO WATCH FOR. BOTH VOICE UNDERSTANDING.
--- NOTE | 2019-03-09 15:56 | Pre-Op Note & Conscious Sedat ---
Pre-Operative Progress Note H&P Reviewed The H&P was reviewed, patient examined and no changes noted. Date H&P Reviewed: Mar 09, 2019 Time H&P Reviewed: 09:00 Pre-Op Diagnosis: Flank mass Conscious Sedation Pre-Proced Time 09:00 ASA Score 2 For ASA 3 and 4: Consider anesthesia and medical clearance. Also, for patients with a history of failed moderate sedation consider anesthesia. Airway Lungs Heart ASA score ASA 1: a normal healthy patient ASA 2: a patient with a mild systemic disease (mid diabetes, controlled hypertension, obesity ASA 3: a patient with a severe systemic disease that limits activity (angina, COPD, prior Myocardial infarction) ASA 4: a patient with an incapacitating disease that is a constant threat to life (CHF, renal failure) ASA 5: a moribund patient not expected to survive 24 hrs. (ruptured aneurysm) ASA 6: a declared brain- patient whose organs are being harvested. For emergent operations, add the letter E after the classification Mallampati Classification Grade 2 Sedation Plan Analgesia, Amnesia, Plan communicated to team members, Discussed options with patient/fam, Discussed risks with patient/fam The patient is an appropriate candidate to undergo the planned procedure, sedation, and anesthesia. The patient immediately re-assessed prior to indication. MARIA ALEJANDRA CAMPOS MD Mar 09, 2019 15:56 POS
== END 2019-03-09 13:35 | disposition home or self-care (01) ==
LOC: SDC 08:36
PROVIDERS: ATTEND Nurse Practitioner Family
DX: J43.9 Emphysema, unspecified (principal); R91.1 Solitary pulmonary nodule
CPT/HCPCS: 36415; 77012; 85027; 85610; 85730

== ENCOUNTER 2019-03-22 09:06 | Outpatient (CLI) | payer MEDICARE ==
[~2019-03-22] VITALS: Ht 165.1 cm; Wt 55.9 kg
== END 2019-03-22 13:45 | disposition home or self-care (01) ==
LOC: PREOP 09:06
PROVIDERS: ATTEND Surgery
DX: Z01.818 Encounter for other preprocedural examination (principal)

== ENCOUNTER 2019-03-24 06:56 | Day surgery (SDC) | payer MEDICARE ==
[2019-03-24] VITALS (10 sets, daily range): BP systolic 98–113; BP diastolic 49–78
[~2019-03-24] VITALS: Ht 165 cm; Wt 55.9 kg
[2019-03-24] MEDS ORDERED: HEParin (CENTRAL IV FLUSH) 500 UNIT/5 ML SYR ONE (07:00)
[2019-03-24] MEDS ORDERED: BUP/EPI 0.5% 1:200,000 (MARCAINE) 10ML VIAL IJ ONE ×2 (07:00→07:20)
[2019-03-24] MEDS ORDERED: 0.9% SODIUM CHLORIDE PF INJ 20 ML VIAL ONE (07:00)
[2019-03-24] MEDS ORDERED: LACTATED RINGERS 1,000 ML IV PRN (07:25)
[2019-03-24] MEDS ORDERED: ceFAZolin 1,000 MG/SWFI 10 ML IV PUSH IV ONE ×2 (07:30)
[2019-03-24] MEDS ORDERED: ceFAZolin INJECTION 1,000 MG in WATER (STERILE) FOR INJECTION 10 ML IV ONE (07:30)
--- NOTE | 2019-03-24 07:52 | Progress Note-Pre Operative ---
Pre-Operative Progress Note H&P Reviewed The H&P was reviewed, patient examined and no changes noted. 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
--- NOTE | 2019-03-24 07:53 | Progress Note-Pre Operative ---
Pre-Operative Progress Note H&P Reviewed The H&P was reviewed, patient examined and no changes noted. Date Seen by Provider: Mar 24, 2019 Time Seen by Provider: 07:53 Date H&P Reviewed: Mar 24, 2019 Time H&P Reviewed: 07:52 Pre-Operative Diagnosis: lung cancer, right flank mass VINCENT HAY DO Mar 24, 2019 07:53 POS
[2019-03-24] MEDS ORDERED: LIDOCAINE PF 2% 5 ML (XYLOCAINE) VIAL ONE (08:09)
[2019-03-24] MEDS ORDERED: ONDANSETRON 4 MG/2 ML (SDV) Z0FRAN ONE (08:09)
[2019-03-24] MEDS ORDERED: proPOfol 200 MG/20 ML (DIPRIVAN) VIAL IV ONE (08:09)
[2019-03-24] MEDS ORDERED: MIDAZOLAM 2 MG/2 ML (VERSED) VIAL ONE (08:10)
[2019-03-24] MEDS ORDERED: fentaNYL INJECTION 100 MCG/2 ML AMP ONE (08:10)
[2019-03-24] MEDS ORDERED: SEVOFLURANE (ULTANE) 15 ML INHAL SOLN ONE ×4 (08:34→09:39)
[2019-03-24] MEDS ORDERED: PHENYLEPHRINE 100 MCG/ML 10 ML (ANESTHESIA) SYR ONE (09:04)
--- NOTE | 2019-03-24 09:46 | Discharge Inst-Simple/Standard ---
Discharge Inst-Standard Patient Instructions/Follow Up Plan of Care/Instructions/FU: 2 weeks Leonora Activity as Tolerated: No Discharge Diet: Regular Diet Other Inst to Patient Follow up Appt: Make appointment for 2 week. Instructions: No lifting greater than 10 pounds. No strenuous activity. May shower in 24 hours, no tub bath or soaking. Use incentive spirometer at home as directed. No Smoking Skin/Wound Care: You have special glue over incisions it will fall off on its own. Place ice pack on 15 min off 30 min and repeat for discomfort and decrease swelling. Symptoms to Report: Appetite Changes, Extremity Discoloration, Numbness/Tingling, Swelling Increased, Bleeding Excessive, Eyesight Changes, Pain Increased, Urine Color Change, Constipation(Persistent), Fever over 101 degree F, Pain/Pressure in chest, Urinating Difficulty, Cough Up/Vomit Blood, Heart Beat Irreg/Pounding, Pain/Pressure in jaw, Vaginal Bleeding Increase, Cramps in feet or legs, Lightheadedness, Pain/Pressure in shoulder, Diarrhea(Persistent), Memory Changes Suddenly, Questions/Concerns, Weight gain consecutive days, Dizziness/Fainting, Nausea/Vomiting, Shortness of Breath, Weight gain over 2 pounds If questions or concerns contact your physician Or seek help at emergency department. VINCENT HAY DO Mar 24, 2019 09:46 POS
[2019-03-24] MEDS ORDERED: MEPERIDINE (DEMEROL) INJ 50 MG/ML IVP ONE (10:00)
[2019-03-24] MEDS ORDERED: morphine INJ 10 MG/ML 1ML (SYR OR VIAL) IVP ONE (10:00)
--- NOTE | 2019-03-24 10:17 | Diagnostic Imaging Report ---
INDICATION: Right Port-A-Cath placement. Comparison with 02/16/2019. FINDINGS: Right Port-A-Cath has been placed. The tip overlies the superior venocaval shadow in good position. There has been clearing of right upper lobe infiltrate since the previous exam. Right upper lobe mass remains present. The lungs are well aerated. No pneumothorax or pleural effusion. The heart is not enlarged. Pacemaker on the left appears unchanged. IMPRESSION: Satisfactory Port-A-Cath placement on the right since the previous exam. Dictated by: Dictated on workstation # [id number]
--- NOTE | 2019-03-24 10:56 | Diagnostic Imaging Report ---
INDICATION: Groshong catheter placement. Fluoroscopy was provided during Groshong catheter placement. 43 seconds of fluoroscopic time was utilized. Images demonstrate a right-sided catheter with tip overlying the SVC. IMPRESSION: Fluoroscopy for Groshong catheter placement. Dictated by: Dictated on workstation # [id number]
--- NOTE | 2019-03-24 12:46 | Anesthesia-General Post-Op ---
General Patient Condition Mental Status/LOC: Same as Preop Cardiovascular: Satisfactory Nausea/Vomiting: Absent Respiratory: Satisfactory Pain: Controlled Complications: Absent Post Op Complications Complications None Follow Up Care/Instructions Patient Instructions None needed. Anesthesia/Patient Condition Patient Condition Patient is doing well, no complaints, stable vital signs, no apparent adverse anesthesia problems. No complications reported per nursing. ANA MARTIN CRNA Mar 24, 2019 12:46 POS
--- NOTE | 2019-03-25 05:01 | OPERATIVE REPORT ---
DATE OF SERVICE: 03/24/2019 PREOPERATIVE DIAGNOSIS: Right flank mass and lung cancer. POSTOPERATIVE DIAGNOSIS: Right flank mass and lung cancer. PROCEDURE: Right ultrasound-guided port placement and excision of right flank mass 7 x 3.2 x 2 cm. SURGEON: Vincent Lea DO ANESTHESIA: General. ESTIMATED BLOOD LOSS: Minimal. COMPLICATIONS: None. INDICATIONS: The patient is an 88-year-old male with recent diagnosis of lung cancer and he has a right flank mass. The patient previously had right flank mass biopsy just demonstrating necrotic tissue and wanting further diagnoses for future care plan. The patient understands risks and benefits of port placement and excision of right flank mass and wishes to proceed. Consent was signed and on the chart. DESCRIPTION OF PROCEDURE: The patient was taken to the operating suite, was prepped and draped in sterile fashion. Surgical pause was performed. The right internal jugular vein was accessed using ultrasound guidance. Dark nonpulsatile blood was withdrawn. The wire was inserted through the needle and the needle was then removed. The fluoroscopy demonstrated the wire to be in good placement. This was then secured. Local anesthetic was then infiltrated from the right neck down to the right chest and a pocket was then to be created. A 15 blade scalpel was used to make a skin incision with the right chest down through subcutaneous tissues and a pocket was then created with both sharp and blunt dissection. Under fluoroscopy, the dilator sheath was then advanced over the guidewire and the wire and dilator were removed. The Groshong catheter was inserted through the sheath. The sheath was removed. The catheter was then tunneled from the insertion point down to the pocket created on the right chest, which was then cut to length and attached to the port and the port was then placed within the pocket. Fluoroscopy assured proper placement. The port was accessed without difficulty and then flushed first with saline and then with heparin. The subcutaneous tissues were then reapproximated using 3-0 Vicryl and the skin was then washed and dried. Skin Affix was placed over the incisions. The patient tolerated procedure well. The patient was then repositioned for right flank mass, which was in the subcutaneous tissue layer. Over the palpable mass, local anesthetic was infiltrated and a 15 blade scalpel was used to make a skin incision through the skin and into the subcutaneous tissue. Then, the cautery was used to dissect down to the mass, which was then dissected around with overall dimensions being 7 x 3.2 x 2 cm. Mass was removed in its entirety and the wound was then irrigated and the skin was then closed using dion. The area was washed and dried and sterile bandage was applied. The patient tolerated procedure well without any complications. He was taken to recovery room in stable condition. Chest x-ray pending. Job ID: [id number] DocumentID: [id number] Dictated Date: 03/24/2019 19:51:36 Forming Process Line Worker Date: 03/25/2019 05:00:23 Dictated By: VINCENT LEA DO
== END 2019-03-24 11:20 | disposition home or self-care (01) ==
LOC: SDC 06:56
PROVIDERS: ATTEND Surgery
DX: C34.90 Malignant neoplasm of unspecified part of unspecified bronchus or lung (principal); L92.9 Granulomatous disorder of the skin and subcutaneous tissue, unspecified; I48.0 Paroxysmal atrial fibrillation; I27.20 Pulmonary hypertension, unspecified; I49.5 Sick sinus syndrome; I25.10 Atherosclerotic heart disease of native coronary artery without angina pectoris; E78.5 Hyperlipidemia, unspecified; G47.33 Obstructive sleep apnea (adult) (pediatric); J43.9 Emphysema, unspecified; Z79.899 Other long term (current) drug therapy; Z87.891 Personal history of nicotine dependence; Z99.89 Dependence on other enabling machines and devices
CPT/HCPCS: 71045; 87081; 88307; 88312; 88341; 88342

== ENCOUNTER 2019-06-15 13:31 | Outpatient (RCR) | payer MEDICARE ==
[2019-04-14 12:32] LABS: BASOPHILS # (AUTO) 0.1 10^3/uL (0.0-0.1); BASOPHILS % (AUTO) 1 % (0-10); EOSINOPHILS # (AUTO) 0.4 10^3/uL (0.0-0.3); EOSINOPHILS % (AUTO) 4 % (0-10); HEMATOCRIT 40 % (40-54); HEMOGLOBIN 12.7 G/DL (13.3-17.7); LYMPHOCYTES # (AUTO) 2.2 X 10^3 (1.0-4.0); LYMPHOCYTES % (AUTO) 20 % (12-44); MEAN CORPUSCULAR HEMOGLOBIN 29 PG (25-34); MEAN CORPUSCULAR HGB CONC 32 G/DL (32-36); MEAN CORPUSCULAR VOLUME 92 FL (80-99); MEAN PLATELET VOLUME 12.2 FL (7.4-10.4); MONOCYTES # (AUTO) 0.7 X 10^3 (0.0-1.0); MONOCYTES % (AUTO) 7 % (0-12); NEUTROPHILS # (AUTO) 7.5 X 10^3 (1.8-7.8); NEUTROPHILS % (AUTO) 69 % (42-75); PLATELET COUNT 158 10^3/uL (130-400); RED CELL DISTRIBUTION WIDTH 14.5 % (10.0-14.5); WHITE BLOOD COUNT 10.8 10^3/uL (4.3-11.0)
[2019-04-14 12:53] LABS: ALANINE AMINOTRANSFERASE 21 U/L (0-55); ALKALINE PHOSPHATASE 79 U/L (40-136); BILIRUBIN,TOTAL 0.5 MG/DL (0.1-1.0); BUN/CREATININE RATIO 19; CALCIUM 9.5 MG/DL (8.5-10.1); CARBON DIOXIDE 26 MMOL/L (21-32); CHLORIDE 101 MMOL/L (98-107); CREATININE SERUM 0.94 MG/DL (0.60-1.30); GFR ESTIMATED > 60; GLUCOSE 71 MG/DL (70-105); POTASSIUM 4.4 MMOL/L (3.6-5.0); SODIUM 138 MMOL/L (135-145); TOTAL PROTEIN 7.9 GM/DL (6.4-8.2)
[2019-04-25 09:20] LABS: BASOPHILS % (AUTO) 0 % (0-10); EOSINOPHILS % (AUTO) 0 % (0-10); HEMATOCRIT 40 % (40-54); HEMOGLOBIN 12.7 G/DL (13.3-17.7); LYMPHOCYTES # (AUTO) 0.8 X 10^3 (1.0-4.0); LYMPHOCYTES % (AUTO) 13 % (12-44); MEAN CORPUSCULAR HEMOGLOBIN 29 PG (25-34); MEAN CORPUSCULAR HGB CONC 32 G/DL (32-36); MEAN CORPUSCULAR VOLUME 91 FL (80-99); MEAN PLATELET VOLUME 12.8 FL (7.4-10.4); MONOCYTES % (AUTO) 1 % (0-12); NEUTROPHILS # (AUTO) 5.3 X 10^3 (1.8-7.8); NEUTROPHILS % (AUTO) 86 % (42-75); PLATELET COUNT 132 10^3/uL (130-400); RED CELL DISTRIBUTION WIDTH 14.2 % (10.0-14.5); WHITE BLOOD COUNT 6.1 10^3/uL (4.3-11.0)
[2019-04-25 09:44] LABS: BUN/CREATININE RATIO 22; CALCIUM 9.1 MG/DL (8.5-10.1); CARBON DIOXIDE 24 MMOL/L (21-32); CHLORIDE 99 MMOL/L (98-107); CREATININE SERUM 0.89 MG/DL (0.60-1.30); GFR ESTIMATED > 60; GLUCOSE 216 MG/DL (70-105); POTASSIUM 4.6 MMOL/L (3.6-5.0); SODIUM 135 MMOL/L (135-145)
[2019-05-02 08:49] LABS: BASOPHILS % (AUTO) 0 % (0-10); EOSINOPHILS % (AUTO) 0 % (0-10); HEMATOCRIT 40 % (40-54); HEMOGLOBIN 12.5 G/DL (13.3-17.7); LYMPHOCYTES # (AUTO) 0.6 X 10^3 (1.0-4.0); LYMPHOCYTES % (AUTO) 17 % (12-44); MEAN CORPUSCULAR HEMOGLOBIN 29 PG (25-34); MEAN CORPUSCULAR HGB CONC 31 G/DL (32-36); MEAN CORPUSCULAR VOLUME 92 FL (80-99); MEAN PLATELET VOLUME 12.4 FL (7.4-10.4); MONOCYTES % (AUTO) 1 % (0-12); NEUTROPHILS # (AUTO) 2.6 X 10^3 (1.8-7.8); NEUTROPHILS % (AUTO) 82 % (42-75); PLATELET COUNT 128 10^3/uL (130-400); RED CELL DISTRIBUTION WIDTH 14.3 % (10.0-14.5); WHITE BLOOD COUNT 3.2 10^3/uL (4.3-11.0)
[2019-05-02 09:09] LABS: BUN/CREATININE RATIO 20; CALCIUM 9.1 MG/DL (8.5-10.1); CARBON DIOXIDE 22 MMOL/L (21-32); CHLORIDE 102 MMOL/L (98-107); CREATININE SERUM 1.09 MG/DL (0.60-1.30); GFR ESTIMATED > 60; GLUCOSE 209 MG/DL (70-105); POTASSIUM 4.5 MMOL/L (3.6-5.0); SODIUM 135 MMOL/L (135-145)
[2019-05-09 10:28] LABS: BASOPHILS % (AUTO) 1 % (0-10); EOSINOPHILS # (AUTO) 0.2 10^3/uL (0.0-0.3); EOSINOPHILS % (AUTO) 7 % (0-10); HEMATOCRIT 37 % (40-54); HEMOGLOBIN 11.7 G/DL (13.3-17.7); LYMPHOCYTES # (AUTO) 0.4 X 10^3 (1.0-4.0); LYMPHOCYTES % (AUTO) 12 % (12-44); MEAN CORPUSCULAR HEMOGLOBIN 30 PG (25-34); MEAN CORPUSCULAR HGB CONC 32 G/DL (32-36); MEAN CORPUSCULAR VOLUME 93 FL (80-99); MEAN PLATELET VOLUME 12.8 FL (7.4-10.4); MONOCYTES # (AUTO) 0.2 X 10^3 (0.0-1.0); MONOCYTES % (AUTO) 8 % (0-12); NEUTROPHILS # (AUTO) 2.2 X 10^3 (1.8-7.8); NEUTROPHILS % (AUTO) 72 % (42-75); PLATELET COUNT 135 10^3/uL (130-400); RED CELL DISTRIBUTION WIDTH 14.7 % (10.0-14.5); WHITE BLOOD COUNT 3.1 10^3/uL (4.3-11.0)
[2019-05-09 10:40] LABS: ALANINE AMINOTRANSFERASE 21 U/L (0-55); ALKALINE PHOSPHATASE 69 U/L (40-136); BILIRUBIN,TOTAL 0.4 MG/DL (0.1-1.0); BUN/CREATININE RATIO 18; CALCIUM 9.1 MG/DL (8.5-10.1); CARBON DIOXIDE 26 MMOL/L (21-32); CHLORIDE 103 MMOL/L (98-107); CREATININE SERUM 0.89 MG/DL (0.60-1.30); GFR ESTIMATED > 60; GLUCOSE 109 MG/DL (70-105); MAGNESIUM 1.9 MG/DL (1.6-2.4); POTASSIUM 4.2 MMOL/L (3.6-5.0); SODIUM 137 MMOL/L (135-145)
[2019-05-16 09:07] LABS: BASOPHILS % (AUTO) 1 % (0-10); EOSINOPHILS # (AUTO) 0.2 10^3/uL (0.0-0.3); EOSINOPHILS % (AUTO) 7 % (0-10); HEMATOCRIT 35 % (40-54); HEMOGLOBIN 11.3 G/DL (13.3-17.7); LYMPHOCYTES # (AUTO) 0.4 X 10^3 (1.0-4.0); LYMPHOCYTES % (AUTO) 14 % (12-44); MEAN CORPUSCULAR HEMOGLOBIN 30 PG (25-34); MEAN CORPUSCULAR HGB CONC 32 G/DL (32-36); MEAN CORPUSCULAR VOLUME 93 FL (80-99); MEAN PLATELET VOLUME 11.3 FL (7.4-10.4); MONOCYTES # (AUTO) 0.2 X 10^3 (0.0-1.0); MONOCYTES % (AUTO) 7 % (0-12); NEUTROPHILS # (AUTO) 1.7 X 10^3 (1.8-7.8); NEUTROPHILS % (AUTO) 70 % (42-75); PLATELET COUNT 113 10^3/uL (130-400); RED CELL DISTRIBUTION WIDTH 15.2 % (10.0-14.5); WHITE BLOOD COUNT 2.4 10^3/uL (4.3-11.0)
[2019-05-16 09:22] LABS: BUN/CREATININE RATIO 18; CALCIUM 9.2 MG/DL (8.5-10.1); CARBON DIOXIDE 27 MMOL/L (21-32); CHLORIDE 104 MMOL/L (98-107); CREATININE SERUM 0.84 MG/DL (0.60-1.30); GFR ESTIMATED > 60; GLUCOSE 115 MG/DL (70-105); POTASSIUM 4.4 MMOL/L (3.6-5.0); SODIUM 138 MMOL/L (135-145)
[2019-05-23 08:59] LABS: BASOPHILS % (AUTO) 1 % (0-10); EOSINOPHILS # (AUTO) 0.2 10^3/uL (0.0-0.3); EOSINOPHILS % (AUTO) 6 % (0-10); HEMATOCRIT 34 % (40-54); HEMOGLOBIN 10.7 G/DL (13.3-17.7); LYMPHOCYTES # (AUTO) 0.3 X 10^3 (1.0-4.0); LYMPHOCYTES % (AUTO) 10 % (12-44); MEAN CORPUSCULAR HEMOGLOBIN 30 PG (25-34); MEAN CORPUSCULAR HGB CONC 32 G/DL (32-36); MEAN CORPUSCULAR VOLUME 94 FL (80-99); MEAN PLATELET VOLUME 11.1 FL (7.4-10.4); MONOCYTES # (AUTO) 0.3 X 10^3 (0.0-1.0); MONOCYTES % (AUTO) 10 % (0-12); NEUTROPHILS # (AUTO) 2.1 X 10^3 (1.8-7.8); NEUTROPHILS % (AUTO) 73 % (42-75); PLATELET COUNT 113 10^3/uL (130-400); RED CELL DISTRIBUTION WIDTH 16.4 % (10.0-14.5); WHITE BLOOD COUNT 2.9 10^3/uL (4.3-11.0)
[2019-05-23 09:26] LABS: ALANINE AMINOTRANSFERASE 21 U/L (0-55); ALBUMIN 3.9 GM/DL (3.2-4.5); ALKALINE PHOSPHATASE 70 U/L (40-136); BILIRUBIN,TOTAL 0.4 MG/DL (0.1-1.0); BUN/CREATININE RATIO 17; CALCIUM 8.9 MG/DL (8.5-10.1); CARBON DIOXIDE 27 MMOL/L (21-32); CHLORIDE 102 MMOL/L (98-107); CREATININE SERUM 0.83 MG/DL (0.60-1.30); GFR ESTIMATED > 60; GLUCOSE 92 MG/DL (70-105); MAGNESIUM 2.1 MG/DL (1.6-2.4); POTASSIUM 4.4 MMOL/L (3.6-5.0); SODIUM 137 MMOL/L (135-145); TOTAL PROTEIN 6.7 GM/DL (6.4-8.2)
[2019-05-30 09:29] LABS: BASOPHILS % (AUTO) 1 % (0-10); EOSINOPHILS # (AUTO) 0.1 10^3/uL (0.0-0.3); EOSINOPHILS % (AUTO) 2 % (0-10); HEMATOCRIT 32 % (40-54); HEMOGLOBIN 10.3 G/DL (13.3-17.7); LYMPHOCYTES # (AUTO) 0.3 X 10^3 (1.0-4.0); LYMPHOCYTES % (AUTO) 11 % (12-44); MEAN CORPUSCULAR HEMOGLOBIN 30 PG (25-34); MEAN CORPUSCULAR HGB CONC 32 G/DL (32-36); MEAN CORPUSCULAR VOLUME 95 FL (80-99); MEAN PLATELET VOLUME 10.9 FL (7.4-10.4); MONOCYTES # (AUTO) 0.2 X 10^3 (0.0-1.0); MONOCYTES % (AUTO) 9 % (0-12); NEUTROPHILS # (AUTO) 2.1 X 10^3 (1.8-7.8); NEUTROPHILS % (AUTO) 78 % (42-75); PLATELET COUNT 149 10^3/uL (130-400); RED CELL DISTRIBUTION WIDTH 17.1 % (10.0-14.5); WHITE BLOOD COUNT 2.7 10^3/uL (4.3-11.0)
[2019-05-30 09:51] LABS: ALANINE AMINOTRANSFERASE 22 U/L (0-55); ALBUMIN 3.8 GM/DL (3.2-4.5); ALKALINE PHOSPHATASE 72 U/L (40-136); BILIRUBIN,TOTAL 0.4 MG/DL (0.1-1.0); BUN/CREATININE RATIO 19; CALCIUM 9.1 MG/DL (8.5-10.1); CARBON DIOXIDE 28 MMOL/L (21-32); CHLORIDE 103 MMOL/L (98-107); CREATININE SERUM 0.83 MG/DL (0.60-1.30); GFR ESTIMATED > 60; GLUCOSE 86 MG/DL (70-105); POTASSIUM 4.5 MMOL/L (3.6-5.0); SODIUM 137 MMOL/L (135-145); TOTAL PROTEIN 6.6 GM/DL (6.4-8.2)
[2019-06-08 14:54] LABS: BASOPHILS % (AUTO) 1 % (0-10); EOSINOPHILS # (AUTO) 0.1 10^3/uL (0.0-0.3); EOSINOPHILS % (AUTO) 3 % (0-10); HEMATOCRIT 32 % (40-54); LYMPHOCYTES # (AUTO) 0.3 X 10^3 (1.0-4.0); LYMPHOCYTES % (AUTO) 16 % (12-44); MEAN CORPUSCULAR HEMOGLOBIN 31 PG (25-34); MEAN CORPUSCULAR HGB CONC 32 G/DL (32-36); MEAN CORPUSCULAR VOLUME 97 FL (80-99); MEAN PLATELET VOLUME 10.5 FL (7.4-10.4); MONOCYTES # (AUTO) 0.3 X 10^3 (0.0-1.0); MONOCYTES % (AUTO) 14 % (0-12); NEUTROPHILS # (AUTO) 1.2 X 10^3 (1.8-7.8); NEUTROPHILS % (AUTO) 66 % (42-75); PLATELET COUNT 151 10^3/uL (130-400); RED CELL DISTRIBUTION WIDTH 18.9 % (10.0-14.5); WHITE BLOOD COUNT 1.8 10^3/uL (4.3-11.0)
[2019-06-08 15:17] LABS: BUN/CREATININE RATIO 16; CALCIUM 9.1 MG/DL (8.5-10.1); CARBON DIOXIDE 27 MMOL/L (21-32); CHLORIDE 103 MMOL/L (98-107); CREATININE SERUM 0.86 MG/DL (0.60-1.30); GFR ESTIMATED > 60; GLUCOSE 91 MG/DL (70-105); POTASSIUM 4.4 MMOL/L (3.6-5.0); SODIUM 138 MMOL/L (135-145)
[~2019-06-15] VITALS: Ht 165.1 cm; Wt 54.9 kg
[~2019-06-15 13:31] MED LIST changes: +FAMOTIDINE 20MG/2ML IV (CANCER CTR) IV SCH; +NS IV 1000 ML (CANCER CTR) IV SCH; +PALONOSETRON HCL 0.25 MG, DEXAMETHASONE INJECTION 10 MG in NS (IVPB) CANCER CENTER 50 ML IV SCH; +diphenhydrAMINE 25 MG TAB (BENADRYL) CANCER CENTER PO SCH; +diphenhydrAMINE 50 MG/ML INJ (CANCER CENTER) IV PRN
[2019-06-15 14:08] LABS: BASOPHILS % (AUTO) 1 % (0-10); EOSINOPHILS # (AUTO) 0.1 10^3/uL (0.0-0.3); EOSINOPHILS % (AUTO) 4 % (0-10); HEMATOCRIT 38 % (40-54); HEMOGLOBIN 12.1 G/DL (13.3-17.7); LYMPHOCYTES # (AUTO) 0.5 X 10^3 (1.0-4.0); LYMPHOCYTES % (AUTO) 15 % (12-44); MEAN CORPUSCULAR HEMOGLOBIN 31 PG (25-34); MEAN CORPUSCULAR HGB CONC 32 G/DL (32-36); MEAN CORPUSCULAR VOLUME 96 FL (80-99); MEAN PLATELET VOLUME 10.9 FL (7.4-10.4); MONOCYTES # (AUTO) 0.6 X 10^3 (0.0-1.0); MONOCYTES % (AUTO) 20 % (0-12); NEUTROPHILS # (AUTO) 1.8 X 10^3 (1.8-7.8); NEUTROPHILS % (AUTO) 59 % (42-75); PLATELET COUNT 169 10^3/uL (130-400); RED CELL DISTRIBUTION WIDTH 19.6 % (10.0-14.5)
[2019-06-15 14:23] LABS: BUN/CREATININE RATIO 17; CALCIUM 9.7 MG/DL (8.5-10.1); CARBON DIOXIDE 25 MMOL/L (21-32); CHLORIDE 102 MMOL/L (98-107); CREATININE SERUM 0.95 MG/DL (0.60-1.30); GFR ESTIMATED > 60; GLUCOSE 117 MG/DL (70-105); POTASSIUM 4.7 MMOL/L (3.6-5.0); SODIUM 137 MMOL/L (135-145)
== END 2019-06-19 | disposition home or self-care (01) ==
LOC: ONC 13:31
PROVIDERS: ATTEND Internal Medicine Hematology & Oncology
DX: Z51.0 Encounter for antineoplastic radiation therapy (principal); Z51.11 Encounter for antineoplastic chemotherapy; C34.11 Malignant neoplasm of upper lobe, right bronchus or lung; R22.2 Localized swelling, mass and lump, trunk; G47.33 Obstructive sleep apnea (adult) (pediatric); E78.5 Hyperlipidemia, unspecified; I48.0 Paroxysmal atrial fibrillation; J43.9 Emphysema, unspecified; I49.5 Sick sinus syndrome; Z85.46 Personal history of malignant neoplasm of prostate; Z95.0 Presence of cardiac pacemaker; Z79.01 Long term (current) use of anticoagulants; Z79.899 Other long term (current) drug therapy; Z87.01 Personal history of pneumonia (recurrent)
CPT/HCPCS: 36591; 77290; 77295; 77300; 77307; 77334; 77336; 77417; 77470; 80048; 80053; 83735; 85025; 96375; 96413; 96417; 99213; 99214

== ENCOUNTER → 2019-07-04 | Outpatient (CLI) | payer MEDICARE ==
[~2019-07-04] MED LIST changes: -FAMOTIDINE 20MG/2ML IV (CANCER CTR) IV SCH; +HOLD METFORMIN - RECEIVED CONTRAST 20 ML VIAL IV SCH; +IOHEXOL 350 MG/ML 100 ML (OMNIPAQUE 350) VIAL IV ONE; +NS 100 ML (IVPB) BAG IV ONE; -NS IV 1000 ML (CANCER CTR) IV SCH; -PALONOSETRON HCL 0.25 MG, DEXAMETHASONE INJECTION 10 MG in NS (IVPB) CANCER CENTER 50 ML IV SCH; -diphenhydrAMINE 25 MG TAB (BENADRYL) CANCER CENTER PO SCH; -diphenhydrAMINE 50 MG/ML INJ (CANCER CENTER) IV PRN
[2019-07-04] MEDS: CATHETER FLUSH 10 ML SYR IV PRN ×2 (11:12→11:19)
--- NOTE | 2019-07-04 12:39 | Diagnostic Imaging Report ---
PROCEDURE: CT chest with contrast, CT abdomen with and without contrast. TECHNIQUE: Precontrast acquisitions were acquired through the abdomen. Multiple contiguous axial images were obtained through the chest and abdomen after administration of intravenous contrast. Auto Exposure Controls were utilized during the CT exam to meet ALARA standards for radiation dose reduction. INDICATION: A lung carcinoma, followup. Correlation is made with prior CT chest from 02/01/[address] abdomen from 02/25/2019. CT CHEST: A left chest wall cardiac pacemaker is in place. There is a right chest wall port. No axillary lymphadenopathy is detected. No definite mediastinal or hilar lymphadenopathy is identified. Spiculated mass in the right upper lobe has decreased in size measuring approximately 2.5 x 2.6 cm compared with 3.7 x 3.3 cm. There is some central lucency in the lesion on today's study consistent with minimal cavitation. The lesion does extend inferiorly to the right hilum. A small satellite nodule just lateral to the dominant lesion is also reduced in size measuring approximately 3 mm compared with 7 mm on prior. A nodule more inferior and lateral measures 2 mm compared with 4 mm. A vague density inferiorly measures approximately 11 mm compared with 13 mm. Additional satellite nodule along the posterior aspect of the inferior aspect of the dominant lesion near the right hilum has reduced in size measuring 2 to 3 mm compared with 7 mm. No new mass is seen. There are emphysematous changes in both lungs. There are linear areas of scarring or atelectasis bilateral lower lobes. There is some mild pleural thickening along the medial and basilar aspect on the right. IMPRESSION: Significant improved appearance of the chest when compared with prior CT from 02/01/2019. Dominant spiculated mass in the right upper lobe has decreased in size and now does show some cavitation. In addition, numerous satellite nodules demonstrate decrease in size. No thoracic lymphadenopathy is detected. CT abdomen: No liver mass is detected. Gallbladder is unremarkable. No biliary ductal dilatation. The pancreas and spleen are unremarkable. No adrenal mass is seen. A cortical low density upper pole left kidney is stable. Aorta is nonaneurysmal. No central retroperitoneal or mesenteric lymphadenopathy is seen. Subcutaneous density in the right flank region is again noted but appears slightly less prominent at 3.6 x 1.4 cm compared with 4.1 x 1.8 cm on prior. IMPRESSION: Essentially unremarkable CT of the abdomen. Right flank subcutaneous density has decreased in size. No definite abdominal lymphadenopathy or mass is detected. Dictated by: Dictated on workstation # [id number]
--- NOTE | 2019-07-04 14:49 | Diagnostic Imaging Report ---
INDICATION: Lung carcinoma. TECHNIQUE: Patient was administered 26.3 mCi technetium 99m MDP intravenously and whole-body imaging was performed after 3 hour delay. COMPARISON: Correlation is made with prior bone scan from 12/03/2015. FINDINGS: There is normal uptake of activity by the axial and appendicular skeleton. There is uptake by the kidneys with excretion into the urinary bladder. There is mild uptake involving a lower left anterior rib. There is also mild uptake involving the right shoulder. This could potentially be degenerative. No other suspicious foci are identified. IMPRESSION: Mild uptake in lower left anterior rib, perhaps the left anterior eleventh rib. This could be from a healing rib fracture. Questionable healing fracture noted at this location on CT from the same day. Clinical correlation to prior trauma is recommended. Continued follow-up is recommended. No other suspicious foci are detected. Dictated by: Dictated on workstation # [id number]
== END ==
LOC: CARD 10:56
PROVIDERS: ATTEND Nurse Practitioner Adult Health
DX: Z01.89 Encounter for other specified special examinations (principal); C34.11 Malignant neoplasm of upper lobe, right bronchus or lung; Z92.3 Personal history of irradiation; Z92.21 Personal history of antineoplastic chemotherapy
CPT/HCPCS: 71260; 74170; 78306

== ENCOUNTER → 2019-09-02 | Outpatient (CLI) | payer MEDICARE ==
[~2019-09-02] MED LIST changes: +BARIUM SUSPENSION 2.1% (VANILLA SILQ) 450 ML PO ONE; +CATHETER FLUSH 10 ML SYR IV PRN
--- NOTE | 2019-09-02 10:03 | Diagnostic Imaging Report ---
PROCEDURE: CT chest and abdomen with contrast. TECHNIQUE: Multiple contiguous axial images were obtained through the chest and abdomen after the administration of intravenous contrast. Auto Exposure Controls were utilized during the CT exam to meet ALARA standards for radiation dose reduction. INDICATION: Right upper lobe lung cancer, postchemotherapy follow-up CORRELATION STUDY: CT chest and abdomen 07/04/2019 FINDINGS: CT CHEST: Left-sided dual-chamber pacemaker and right IJ Cswokp-p-Zoys catheter remain in place. Heart size is normal. Mild scattered coronary artery calcifications. Thoracic aortic contour unremarkable. Very mildly prominent right hilar lymph node, 15 mm. No pathologically enlarged mediastinal lymphadenopathy. Spiculated right upper lobe suprahilar mass is again demonstrated, 2.6 x 2.5 cm previously 2.6 x 2.5 cm. Extension to the suprahilar paramediastinal region. Adjacent satellite nodule slightly inferiorly, currently 9 mm, previously 11 mm. Two very small 2 mm nodules right upper lobe, stable. Rather severe bullous emphysematous changes about the lung parenchyma greatest on the right lower lobe. No consolidating infiltrate. No effusion. CT ABDOMEN: Liver, spleen, pancreas, gallbladder adrenal glands are unremarkable. Generally normal enhancement about the kidneys. Atherosclerotic changes about the abdominal aorta. Rather significant severity fecal retention in the visualized colon. Small hiatal hernia. Thin, 3.8 x 0.9 cm right flank subcutaneous density, stable. Advanced degenerative changes about the thoracic and lumbar spine. Unchanged mild wedging anteriorly at the L1 vertebral body. Pelvis is not imaged. IMPRESSION: CT CHEST: 1. Relatively stable size of a spiculated mass right upper lobe. The previously noted cavitation however has filled in. Additional satellite nodules also generally stable. No adverse interval change. CT ABDOMEN: 1. Stable CT examination of the abdomen. No definitive evidence for abdominal metastatic disease. Dictated by: Dictated on workstation # [id number]
--- NOTE | 2019-09-02 12:01 | Diagnostic Imaging Report ---
INDICATION: Right upper lobe lung cancer. TECHNIQUE: The patient was administered 25.8 mCi technetium 99m MDP. Anterior and posterior whole-body planar images are obtained. CORRELATION STUDY: 07/04/2019 FINDINGS: Asymmetric uptake of the right acromioclavicular joints, likely of no significance. There is again uptake over a left lower anterior rib appearing unchanged. This likely corresponds to reparative change. No definitive abnormal uptake about the remaining ribs. Sternum unremarkable. Bony calvarium unremarkable. The spine is unremarkable. There is normal uptake throughout the upper and lower extremities. IMPRESSION: 1. Stable bone scan. Uptake along a left lower anterior rib, likely reparative change. Dictated by: Dictated on workstation # [id number]
== END ==
LOC: CARD 07:28
PROVIDERS: ATTEND Nurse Practitioner Adult Health
DX: C34.11 Malignant neoplasm of upper lobe, right bronchus or lung (principal); Z92.21 Personal history of antineoplastic chemotherapy
CPT/HCPCS: 71260; 74160; 78306

== ENCOUNTER 2019-09-06 08:46 | Outpatient (RCR) | payer MEDICARE ==
[2019-06-22 09:33] LABS: BASOPHILS % (AUTO) 1 % (0-10); EOSINOPHILS # (AUTO) 0.2 10^3/uL (0.0-0.3); EOSINOPHILS % (AUTO) 4 % (0-10); HEMATOCRIT 35 % (40-54); LYMPHOCYTES # (AUTO) 0.5 X 10^3 (1.0-4.0); LYMPHOCYTES % (AUTO) 8 % (12-44); MEAN CORPUSCULAR HEMOGLOBIN 30 PG (25-34); MEAN CORPUSCULAR HGB CONC 32 G/DL (32-36); MEAN CORPUSCULAR VOLUME 95 FL (80-99); MEAN PLATELET VOLUME 10.8 FL (7.4-10.4); MONOCYTES # (AUTO) 0.8 X 10^3 (0.0-1.0); MONOCYTES % (AUTO) 13 % (0-12); NEUTROPHILS # (AUTO) 4.4 X 10^3 (1.8-7.8); NEUTROPHILS % (AUTO) 75 % (42-75); PLATELET COUNT 170 10^3/uL (130-400); RED CELL DISTRIBUTION WIDTH 19.3 % (10.0-14.5); WHITE BLOOD COUNT 5.9 10^3/uL (4.3-11.0)
[2019-06-22 09:51] LABS: BUN/CREATININE RATIO 19; CALCIUM 9.6 MG/DL (8.5-10.1); CARBON DIOXIDE 32 MMOL/L (21-32); CHLORIDE 99 MMOL/L (98-107); CREATININE SERUM 0.91 MG/DL (0.60-1.30); GFR ESTIMATED > 60; GLUCOSE 92 MG/DL (70-105); POTASSIUM 4.2 MMOL/L (3.6-5.0); SODIUM 136 MMOL/L (135-145)
[2019-07-05 10:08] LABS: BASOPHILS % (AUTO) 0 % (0-10); EOSINOPHILS # (AUTO) 0.3 10^3/uL (0.0-0.3); EOSINOPHILS % (AUTO) 7 % (0-10); HEMATOCRIT 38 % (40-54); HEMOGLOBIN 11.8 G/DL (13.3-17.7); LYMPHOCYTES # (AUTO) 0.4 X 10^3 (1.0-4.0); LYMPHOCYTES % (AUTO) 9 % (12-44); MEAN CORPUSCULAR HEMOGLOBIN 30 PG (25-34); MEAN CORPUSCULAR HGB CONC 31 G/DL (32-36); MEAN CORPUSCULAR VOLUME 96 FL (80-99); MEAN PLATELET VOLUME 11.4 FL (7.4-10.4); MONOCYTES # (AUTO) 0.5 X 10^3 (0.0-1.0); MONOCYTES % (AUTO) 11 % (0-12); NEUTROPHILS # (AUTO) 3.5 X 10^3 (1.8-7.8); NEUTROPHILS % (AUTO) 73 % (42-75); PLATELET COUNT 199 10^3/uL (130-400); WHITE BLOOD COUNT 4.7 10^3/uL (4.3-11.0)
[2019-07-05 10:29] LABS: ALANINE AMINOTRANSFERASE 26 U/L (0-55); ALKALINE PHOSPHATASE 98 U/L (40-136); BILIRUBIN,TOTAL 0.4 MG/DL (0.1-1.0); BUN/CREATININE RATIO 16; CALCIUM 9.5 MG/DL (8.5-10.1); CARBON DIOXIDE 26 MMOL/L (21-32); CHLORIDE 100 MMOL/L (98-107); GFR ESTIMATED > 60; GLUCOSE 82 MG/DL (70-105); MAGNESIUM 2.4 MG/DL (1.6-2.4); POTASSIUM 4.5 MMOL/L (3.6-5.0); SODIUM 137 MMOL/L (135-145); TOTAL PROTEIN 7.5 GM/DL (6.4-8.2)
[2019-07-19 09:06] LABS: BASOPHILS % (AUTO) 0 % (0-10); EOSINOPHILS # (AUTO) 0.1 10^3/uL (0.0-0.3); EOSINOPHILS % (AUTO) 2 % (0-10); HEMATOCRIT 50 % (40-54); HEMOGLOBIN 17.1 G/DL (13.3-17.7); LYMPHOCYTES # (AUTO) 1.4 X 10^3 (1.0-4.0); LYMPHOCYTES % (AUTO) 21 % (12-44); MEAN CORPUSCULAR HEMOGLOBIN 30 PG (25-34); MEAN CORPUSCULAR HGB CONC 34 G/DL (32-36); MEAN CORPUSCULAR VOLUME 89 FL (80-99); MEAN PLATELET VOLUME 8.5 FL (7.4-10.4); MONOCYTES # (AUTO) 0.6 X 10^3 (0.0-1.0); MONOCYTES % (AUTO) 10 % (0-12); NEUTROPHILS # (AUTO) 4.2 X 10^3 (1.8-7.8); NEUTROPHILS % (AUTO) 66 % (42-75); PLATELET COUNT 202 10^3/uL (130-400); RED CELL DISTRIBUTION WIDTH 14.6 % (10.0-14.5); WHITE BLOOD COUNT 6.3 10^3/uL (4.3-11.0)
[2019-07-19 09:21] LABS: BUN/CREATININE RATIO 22; CALCIUM 9.1 MG/DL (8.5-10.1); CARBON DIOXIDE 25 MMOL/L (21-32); CHLORIDE 102 MMOL/L (98-107); CREATININE SERUM 0.86 MG/DL (0.60-1.30); GFR ESTIMATED > 60; GLUCOSE 114 MG/DL (70-105); POTASSIUM 4.2 MMOL/L (3.6-5.0); SODIUM 137 MMOL/L (135-145)
[2019-07-26 09:09] LABS: BASOPHILS % (AUTO) 1 % (0-10); EOSINOPHILS # (AUTO) 0.2 10^3/uL (0.0-0.3); EOSINOPHILS % (AUTO) 7 % (0-10); HEMATOCRIT 34 % (40-54); HEMOGLOBIN 10.6 G/DL (13.3-17.7); LYMPHOCYTES # (AUTO) 0.3 X 10^3 (1.0-4.0); LYMPHOCYTES % (AUTO) 15 % (12-44); MEAN CORPUSCULAR HEMOGLOBIN 30 PG (25-34); MEAN CORPUSCULAR HGB CONC 31 G/DL (32-36); MEAN CORPUSCULAR VOLUME 96 FL (80-99); MEAN PLATELET VOLUME 11.5 FL (7.4-10.4); MONOCYTES # (AUTO) 0.2 X 10^3 (0.0-1.0); MONOCYTES % (AUTO) 10 % (0-12); NEUTROPHILS # (AUTO) 1.6 X 10^3 (1.8-7.8); NEUTROPHILS % (AUTO) 68 % (42-75); PLATELET COUNT 148 10^3/uL (130-400); RED CELL DISTRIBUTION WIDTH 17.7 % (10.0-14.5); WHITE BLOOD COUNT 2.3 10^3/uL (4.3-11.0)
[2019-07-26 09:21] LABS: CHLORIDE 101 MMOL/L (98-107); POTASSIUM 4.1 MMOL/L (3.6-5.0); SODIUM 137 MMOL/L (135-145)
[2019-07-26 09:22] LABS: CALCIUM 9.1 MG/DL (8.5-10.1); GLUCOSE 74 MG/DL (70-105)
[2019-07-26 09:24] LABS: CARBON DIOXIDE 24 MMOL/L (21-32)
[2019-07-26 09:26] LABS: CREATININE SERUM 0.78 MG/DL (0.60-1.30); GFR ESTIMATED > 60
[2019-07-26 09:27] LABS: BUN/CREATININE RATIO 22
[2019-08-02 08:33] LABS: BASOPHILS # (AUTO) 0.1 10^3/uL (0.0-0.1); BASOPHILS % (AUTO) 3 % (0-10); EOSINOPHILS # (AUTO) 0.1 10^3/uL (0.0-0.3); EOSINOPHILS % (AUTO) 4 % (0-10); HEMATOCRIT 36 % (40-54); HEMOGLOBIN 11.5 G/DL (13.3-17.7); LYMPHOCYTES # (AUTO) 0.5 X 10^3 (1.0-4.0); LYMPHOCYTES % (AUTO) 26 % (12-44); MEAN CORPUSCULAR HEMOGLOBIN 31 PG (25-34); MEAN CORPUSCULAR HGB CONC 32 G/DL (32-36); MEAN CORPUSCULAR VOLUME 97 FL (80-99); MEAN PLATELET VOLUME 11.3 FL (7.4-10.4); MONOCYTES # (AUTO) 0.1 X 10^3 (0.0-1.0); MONOCYTES % (AUTO) 6 % (0-12); NEUTROPHILS # (AUTO) 1.2 X 10^3 (1.8-7.8); NEUTROPHILS % (AUTO) 62 % (42-75); PLATELET COUNT 158 10^3/uL (130-400); RED CELL DISTRIBUTION WIDTH 18.1 % (10.0-14.5)
[2019-08-02 08:55] LABS: BUN/CREATININE RATIO 18; CALCIUM 9.2 MG/DL (8.5-10.1); CARBON DIOXIDE 26 MMOL/L (21-32); CHLORIDE 102 MMOL/L (98-107); CREATININE SERUM 0.87 MG/DL (0.60-1.30); GFR ESTIMATED > 60; GLUCOSE 84 MG/DL (70-105); POTASSIUM 4.1 MMOL/L (3.6-5.0); SODIUM 137 MMOL/L (135-145)
[2019-08-09 09:04] LABS: BASOPHILS % (AUTO) 1 % (0-10); EOSINOPHILS # (AUTO) 0.1 10^3/uL (0.0-0.3); EOSINOPHILS % (AUTO) 4 % (0-10); HEMATOCRIT 35 % (40-54); HEMOGLOBIN 11.1 G/DL (13.3-17.7); LYMPHOCYTES # (AUTO) 0.5 X 10^3 (1.0-4.0); LYMPHOCYTES % (AUTO) 18 % (12-44); MEAN CORPUSCULAR HEMOGLOBIN 31 PG (25-34); MEAN CORPUSCULAR HGB CONC 32 G/DL (32-36); MEAN CORPUSCULAR VOLUME 98 FL (80-99); MEAN PLATELET VOLUME 11.1 FL (7.4-10.4); MONOCYTES # (AUTO) 0.5 X 10^3 (0.0-1.0); MONOCYTES % (AUTO) 17 % (0-12); NEUTROPHILS # (AUTO) 1.6 X 10^3 (1.8-7.8); NEUTROPHILS % (AUTO) 61 % (42-75); PLATELET COUNT 131 10^3/uL (130-400); RED CELL DISTRIBUTION WIDTH 18.7 % (10.0-14.5); WHITE BLOOD COUNT 2.7 10^3/uL (4.3-11.0)
[2019-08-09 09:23] LABS: BUN/CREATININE RATIO 18; CALCIUM 8.8 MG/DL (8.5-10.1); CARBON DIOXIDE 26 MMOL/L (21-32); CHLORIDE 103 MMOL/L (98-107); CREATININE SERUM 0.84 MG/DL (0.60-1.30); GFR ESTIMATED > 60; GLUCOSE 92 MG/DL (70-105); MAGNESIUM 2.1 MG/DL (1.6-2.4); POTASSIUM 4.2 MMOL/L (3.6-5.0); SODIUM 137 MMOL/L (135-145)
[2019-08-09 09:24] LABS: ALANINE AMINOTRANSFERASE 21 U/L (0-55); ALBUMIN 3.9 GM/DL (3.2-4.5); ALKALINE PHOSPHATASE 63 U/L (40-136); BILIRUBIN,TOTAL 0.5 MG/DL (0.1-1.0); TOTAL PROTEIN 7.1 GM/DL (6.4-8.2)
[2019-08-16 13:47] LABS: BASOPHILS % (AUTO) 1 % (0-10); EOSINOPHILS # (AUTO) 0.1 10^3/uL (0.0-0.3); EOSINOPHILS % (AUTO) 4 % (0-10); HEMATOCRIT 33 % (40-54); HEMOGLOBIN 10.7 G/DL (13.3-17.7); LYMPHOCYTES # (AUTO) 0.5 X 10^3 (1.0-4.0); LYMPHOCYTES % (AUTO) 17 % (12-44); MEAN CORPUSCULAR HEMOGLOBIN 31 PG (25-34); MEAN CORPUSCULAR HGB CONC 32 G/DL (32-36); MEAN CORPUSCULAR VOLUME 98 FL (80-99); MEAN PLATELET VOLUME 11.1 FL (7.4-10.4); MONOCYTES # (AUTO) 0.2 X 10^3 (0.0-1.0); MONOCYTES % (AUTO) 6 % (0-12); NEUTROPHILS # (AUTO) 2.1 X 10^3 (1.8-7.8); NEUTROPHILS % (AUTO) 73 % (42-75); PLATELET COUNT 89 10^3/uL (130-400); RED CELL DISTRIBUTION WIDTH 17.3 % (10.0-14.5); WHITE BLOOD COUNT 2.8 10^3/uL (4.3-11.0)
[2019-08-16 14:01] LABS: BUN/CREATININE RATIO 22; CALCIUM 8.9 MG/DL (8.5-10.1); CARBON DIOXIDE 25 MMOL/L (21-32); CHLORIDE 103 MMOL/L (98-107); CREATININE SERUM 0.87 MG/DL (0.60-1.30); GFR ESTIMATED > 60; GLUCOSE 99 MG/DL (70-105); POTASSIUM 4.5 MMOL/L (3.6-5.0); SODIUM 137 MMOL/L (135-145)
[2019-08-23 13:14] LABS: BASOPHILS % (AUTO) 1 % (0-10); EOSINOPHILS # (AUTO) 0.2 10^3/uL (0.0-0.3); EOSINOPHILS % (AUTO) 5 % (0-10); HEMATOCRIT 36 % (40-54); HEMOGLOBIN 11.2 G/DL (13.3-17.7); LYMPHOCYTES # (AUTO) 0.5 X 10^3 (1.0-4.0); LYMPHOCYTES % (AUTO) 15 % (12-44); MEAN CORPUSCULAR HEMOGLOBIN 30 PG (25-34); MEAN CORPUSCULAR HGB CONC 31 G/DL (32-36); MEAN CORPUSCULAR VOLUME 98 FL (80-99); MEAN PLATELET VOLUME 10.7 FL (7.4-10.4); MONOCYTES # (AUTO) 0.4 X 10^3 (0.0-1.0); MONOCYTES % (AUTO) 14 % (0-12); NEUTROPHILS # (AUTO) 2.1 X 10^3 (1.8-7.8); NEUTROPHILS % (AUTO) 66 % (42-75); PLATELET COUNT 123 10^3/uL (130-400); RED CELL DISTRIBUTION WIDTH 17.6 % (10.0-14.5); WHITE BLOOD COUNT 3.1 10^3/uL (4.3-11.0)
[2019-08-23 13:28] LABS: BUN/CREATININE RATIO 20; CALCIUM 8.9 MG/DL (8.5-10.1); CARBON DIOXIDE 24 MMOL/L (21-32); CHLORIDE 103 MMOL/L (98-107); CREATININE SERUM 0.93 MG/DL (0.60-1.30); GFR ESTIMATED > 60; GLUCOSE 125 MG/DL (70-105); POTASSIUM 4.2 MMOL/L (3.6-5.0); SODIUM 137 MMOL/L (135-145)
[2019-08-30 09:24] LABS: BASOPHILS % (AUTO) 1 % (0-10); EOSINOPHILS # (AUTO) 0.1 10^3/uL (0.0-0.3); EOSINOPHILS % (AUTO) 6 % (0-10); HEMATOCRIT 36 % (40-54); HEMOGLOBIN 11.3 G/DL (13.3-17.7); LYMPHOCYTES # (AUTO) 0.5 X 10^3 (1.0-4.0); LYMPHOCYTES % (AUTO) 25 % (12-44); MEAN CORPUSCULAR HEMOGLOBIN 31 PG (25-34); MEAN CORPUSCULAR HGB CONC 31 G/DL (32-36); MEAN CORPUSCULAR VOLUME 98 FL (80-99); MEAN PLATELET VOLUME 10.6 FL (7.4-10.4); MONOCYTES # (AUTO) 0.2 X 10^3 (0.0-1.0); MONOCYTES % (AUTO) 8 % (0-12); NEUTROPHILS # (AUTO) 1.2 X 10^3 (1.8-7.8); NEUTROPHILS % (AUTO) 61 % (42-75); PLATELET COUNT 137 10^3/uL (130-400); RED CELL DISTRIBUTION WIDTH 17.2 % (10.0-14.5); WHITE BLOOD COUNT 1.9 10^3/uL (4.3-11.0)
[2019-08-30 09:39] LABS: BUN/CREATININE RATIO 18; CALCIUM 9.3 MG/DL (8.5-10.1); CARBON DIOXIDE 27 MMOL/L (21-32); CHLORIDE 100 MMOL/L (98-107); CREATININE SERUM 0.87 MG/DL (0.60-1.30); GFR ESTIMATED > 60; GLUCOSE 67 MG/DL (70-105); POTASSIUM 4.2 MMOL/L (3.6-5.0); SODIUM 137 MMOL/L (135-145)
[~2019-09-06] VITALS: Ht 165.1 cm; Wt 52.6 kg
[~2019-09-06 08:46] MED LIST changes: -BARIUM SUSPENSION 2.1% (VANILLA SILQ) 450 ML PO ONE; -CATHETER FLUSH 10 ML SYR IV PRN; +FAMOTIDINE 20MG/2ML IV (CANCER CTR) IV SCH; -HOLD METFORMIN - RECEIVED CONTRAST 20 ML VIAL IV SCH; -IOHEXOL 350 MG/ML 100 ML (OMNIPAQUE 350) VIAL IV ONE; -NS 100 ML (IVPB) BAG IV ONE; +NS IV 1000 ML (CANCER CTR) IV SCH; +PALONOSETRON HCL 0.25 MG, DEXAMETHASONE INJECTION 10 MG in NS (IVPB) CANCER CENTER 50 ML IV SCH; +diphenhydrAMINE 25 MG TAB (BENADRYL) CANCER CENTER PO SCH
[2019-09-06 09:08] LABS: BASOPHILS % (AUTO) 1 % (0-10); EOSINOPHILS # (AUTO) 0.1 10^3/uL (0.0-0.3); EOSINOPHILS % (AUTO) 4 % (0-10); HEMATOCRIT 37 % (40-54); HEMOGLOBIN 11.7 G/DL (13.3-17.7); LYMPHOCYTES # (AUTO) 0.6 X 10^3 (1.0-4.0); LYMPHOCYTES % (AUTO) 23 % (12-44); MEAN CORPUSCULAR HEMOGLOBIN 31 PG (25-34); MEAN CORPUSCULAR HGB CONC 32 G/DL (32-36); MEAN CORPUSCULAR VOLUME 97 FL (80-99); MONOCYTES # (AUTO) 0.5 X 10^3 (0.0-1.0); MONOCYTES % (AUTO) 19 % (0-12); NEUTROPHILS # (AUTO) 1.4 X 10^3 (1.8-7.8); NEUTROPHILS % (AUTO) 54 % (42-75); PLATELET COUNT 147 10^3/uL (130-400); RED CELL DISTRIBUTION WIDTH 17.8 % (10.0-14.5); WHITE BLOOD COUNT 2.7 10^3/uL (4.3-11.0)
[2019-09-06 09:32] LABS: ALANINE AMINOTRANSFERASE 20 U/L (0-55); ALBUMIN 4.1 GM/DL (3.2-4.5); ALKALINE PHOSPHATASE 59 U/L (40-136); BILIRUBIN,TOTAL 0.4 MG/DL (0.1-1.0); BUN/CREATININE RATIO 17; CALCIUM 9.1 MG/DL (8.5-10.1); CARBON DIOXIDE 25 MMOL/L (21-32); CHLORIDE 104 MMOL/L (98-107); GFR ESTIMATED > 60; GLUCOSE 100 MG/DL (70-105); MAGNESIUM 2.1 MG/DL (1.6-2.4); POTASSIUM 4.3 MMOL/L (3.6-5.0); SODIUM 138 MMOL/L (135-145); TOTAL PROTEIN 7.5 GM/DL (6.4-8.2)
[2019-09-08] MEDS ORDERED: NS IV 500 ML (CANCER CENTER) 500 ML IV SCH (08:15)
[2019-09-08] MEDS ORDERED: DURVALUMAB 500 MG in NS (IVPB) CANCER CENTER 100 ML IV SCH (08:15)
== END 2019-09-20 | disposition home or self-care (01) ==
LOC: ONC 08:46
PROVIDERS: ATTEND Internal Medicine Hematology & Oncology
DX: Z51.11 Encounter for antineoplastic chemotherapy (principal); C34.11 Malignant neoplasm of upper lobe, right bronchus or lung; R22.2 Localized swelling, mass and lump, trunk; G47.33 Obstructive sleep apnea (adult) (pediatric); E78.5 Hyperlipidemia, unspecified; I48.0 Paroxysmal atrial fibrillation; J43.9 Emphysema, unspecified; I49.5 Sick sinus syndrome; Z85.46 Personal history of malignant neoplasm of prostate; Z95.0 Presence of cardiac pacemaker; Z79.01 Long term (current) use of anticoagulants; Z79.899 Other long term (current) drug therapy; Z87.01 Personal history of pneumonia (recurrent)
CPT/HCPCS: 36591; 80048; 80053; 83735; 85025; 96375; 96413; 96417; 99213

== ENCOUNTER → 2019-10-31 | Outpatient (CLI) | payer MEDICARE ==
[~2019-10-31] MED LIST changes: -FAMOTIDINE 20MG/2ML IV (CANCER CTR) IV SCH; -NS IV 1000 ML (CANCER CTR) IV SCH; -PALONOSETRON HCL 0.25 MG, DEXAMETHASONE INJECTION 10 MG in NS (IVPB) CANCER CENTER 50 ML IV SCH; -diphenhydrAMINE 25 MG TAB (BENADRYL) CANCER CENTER PO SCH
== END ==
LOC: CARD 13:43
PROVIDERS: ATTEND Internal Medicine Cardiovascular Disease
DX: I48.0 Paroxysmal atrial fibrillation (principal); C34.90 Malignant neoplasm of unspecified part of unspecified bronchus or lung; I77.89 Other specified disorders of arteries and arterioles; E78.5 Hyperlipidemia, unspecified; I27.20 Pulmonary hypertension, unspecified; I07.1 Rheumatic tricuspid insufficiency; Z95.0 Presence of cardiac pacemaker
CPT/HCPCS: 93306

== ENCOUNTER 2019-12-13 08:42 | Outpatient (RCR) | payer MEDICARE ==
[2019-09-22 13:57] LABS: BASOPHILS % (AUTO) 1 % (0-10); EOSINOPHILS # (AUTO) 0.2 10^3/uL (0.0-0.3); EOSINOPHILS % (AUTO) 3 % (0-10); HEMATOCRIT 37 % (40-54); HEMOGLOBIN 11.6 G/DL (13.3-17.7); LYMPHOCYTES # (AUTO) 0.6 X 10^3 (1.0-4.0); LYMPHOCYTES % (AUTO) 10 % (12-44); MEAN CORPUSCULAR HEMOGLOBIN 31 PG (25-34); MEAN CORPUSCULAR HGB CONC 32 G/DL (32-36); MEAN CORPUSCULAR VOLUME 97 FL (80-99); MEAN PLATELET VOLUME 11.3 FL (7.4-10.4); MONOCYTES # (AUTO) 0.6 X 10^3 (0.0-1.0); MONOCYTES % (AUTO) 9 % (0-12); NEUTROPHILS # (AUTO) 4.9 X 10^3 (1.8-7.8); NEUTROPHILS % (AUTO) 77 % (42-75); PLATELET COUNT 149 10^3/uL (130-400); RED CELL DISTRIBUTION WIDTH 17.3 % (10.0-14.5); WHITE BLOOD COUNT 6.3 10^3/uL (4.3-11.0)
[2019-09-22 14:16] LABS: ALANINE AMINOTRANSFERASE 19 U/L (0-55); ALBUMIN 4.1 GM/DL (3.2-4.5); ALKALINE PHOSPHATASE 72 U/L (40-136); BILIRUBIN,TOTAL 0.4 MG/DL (0.1-1.0); BUN/CREATININE RATIO 18; CALCIUM 9.3 MG/DL (8.5-10.1); CARBON DIOXIDE 29 MMOL/L (21-32); CHLORIDE 103 MMOL/L (98-107); CREATININE SERUM 0.92 MG/DL (0.60-1.30); GFR ESTIMATED > 60; GLUCOSE 111 MG/DL (70-105); POTASSIUM 4.1 MMOL/L (3.6-5.0); SODIUM 138 MMOL/L (135-145); TOTAL PROTEIN 7.6 GM/DL (6.4-8.2)
[2019-10-04 13:28] LABS: BASOPHILS % (AUTO) 1 % (0-10); EOSINOPHILS # (AUTO) 0.4 10^3/uL (0.0-0.3); EOSINOPHILS % (AUTO) 6 % (0-10); HEMATOCRIT 38 % (40-54); HEMOGLOBIN 12.2 G/DL (13.3-17.7); LYMPHOCYTES # (AUTO) 0.8 X 10^3 (1.0-4.0); LYMPHOCYTES % (AUTO) 14 % (12-44); MEAN CORPUSCULAR HEMOGLOBIN 31 PG (25-34); MEAN CORPUSCULAR HGB CONC 32 G/DL (32-36); MEAN CORPUSCULAR VOLUME 96 FL (80-99); MEAN PLATELET VOLUME 11.8 FL (7.4-10.4); MONOCYTES # (AUTO) 0.7 X 10^3 (0.0-1.0); MONOCYTES % (AUTO) 12 % (0-12); NEUTROPHILS # (AUTO) 3.8 X 10^3 (1.8-7.8); NEUTROPHILS % (AUTO) 68 % (42-75); PLATELET COUNT 162 10^3/uL (130-400); RED CELL DISTRIBUTION WIDTH 16.6 % (10.0-14.5); WHITE BLOOD COUNT 5.6 10^3/uL (4.3-11.0)
[2019-10-04 13:55] LABS: ALANINE AMINOTRANSFERASE 19 U/L (0-55); ALBUMIN 4.1 GM/DL (3.2-4.5); ALKALINE PHOSPHATASE 78 U/L (40-136); BILIRUBIN,TOTAL 0.4 MG/DL (0.1-1.0); BUN/CREATININE RATIO 17; CALCIUM 9.3 MG/DL (8.5-10.1); CARBON DIOXIDE 26 MMOL/L (21-32); CHLORIDE 101 MMOL/L (98-107); CREATININE SERUM 1.09 MG/DL (0.60-1.30); GFR ESTIMATED > 60; GLUCOSE 119 MG/DL (70-105); SODIUM 137 MMOL/L (135-145); TOTAL PROTEIN 7.7 GM/DL (6.4-8.2)
[2019-10-18 08:59] LABS: BASOPHILS % (AUTO) 0 % (0-10); EOSINOPHILS # (AUTO) 0.3 10^3/uL (0.0-0.3); EOSINOPHILS % (AUTO) 7 % (0-10); HEMATOCRIT 38 % (40-54); HEMOGLOBIN 12.2 G/DL (13.3-17.7); LYMPHOCYTES # (AUTO) 0.6 X 10^3 (1.0-4.0); LYMPHOCYTES % (AUTO) 11 % (12-44); MEAN CORPUSCULAR HEMOGLOBIN 31 PG (25-34); MEAN CORPUSCULAR HGB CONC 32 G/DL (32-36); MEAN CORPUSCULAR VOLUME 95 FL (80-99); MEAN PLATELET VOLUME 12.1 FL (7.4-10.4); MONOCYTES # (AUTO) 0.5 X 10^3 (0.0-1.0); MONOCYTES % (AUTO) 10 % (0-12); NEUTROPHILS # (AUTO) 3.8 X 10^3 (1.8-7.8); NEUTROPHILS % (AUTO) 72 % (42-75); PLATELET COUNT 127 10^3/uL (130-400); RED CELL DISTRIBUTION WIDTH 16.1 % (10.0-14.5); WHITE BLOOD COUNT 5.3 10^3/uL (4.3-11.0)
[2019-10-18 09:27] LABS: ALANINE AMINOTRANSFERASE 17 U/L (0-55); ALKALINE PHOSPHATASE 67 U/L (40-136); BILIRUBIN,TOTAL 0.5 MG/DL (0.1-1.0); BUN/CREATININE RATIO 20; CALCIUM 9.2 MG/DL (8.5-10.1); CARBON DIOXIDE 24 MMOL/L (21-32); CHLORIDE 102 MMOL/L (98-107); CREATININE SERUM 0.97 MG/DL (0.60-1.30); GFR ESTIMATED > 60; GLUCOSE 119 MG/DL (70-105); POTASSIUM 4.2 MMOL/L (3.6-5.0); SODIUM 138 MMOL/L (135-145); TOTAL PROTEIN 7.4 GM/DL (6.4-8.2)
[2019-11-01 08:55] LABS: BASOPHILS % (AUTO) 1 % (0-10); EOSINOPHILS # (AUTO) 0.3 10^3/uL (0.0-0.3); EOSINOPHILS % (AUTO) 5 % (0-10); HEMATOCRIT 39 % (40-54); HEMOGLOBIN 12.3 G/DL (13.3-17.7); LYMPHOCYTES # (AUTO) 0.7 X 10^3 (1.0-4.0); LYMPHOCYTES % (AUTO) 13 % (12-44); MEAN CORPUSCULAR HEMOGLOBIN 30 PG (25-34); MEAN CORPUSCULAR HGB CONC 31 G/DL (32-36); MEAN CORPUSCULAR VOLUME 95 FL (80-99); MONOCYTES # (AUTO) 0.5 X 10^3 (0.0-1.0); MONOCYTES % (AUTO) 10 % (0-12); NEUTROPHILS # (AUTO) 3.7 X 10^3 (1.8-7.8); NEUTROPHILS % (AUTO) 71 % (42-75); PLATELET COUNT 131 10^3/uL (130-400); RED CELL DISTRIBUTION WIDTH 15.1 % (10.0-14.5); WHITE BLOOD COUNT 5.2 10^3/uL (4.3-11.0)
[2019-11-01 09:13] LABS: ALANINE AMINOTRANSFERASE 22 U/L (0-55); ALBUMIN 4.2 GM/DL (3.2-4.5); ALKALINE PHOSPHATASE 64 U/L (40-136); BILIRUBIN,TOTAL 0.6 MG/DL (0.1-1.0); BUN/CREATININE RATIO 20; CALCIUM 9.5 MG/DL (8.5-10.1); CARBON DIOXIDE 26 MMOL/L (21-32); CHLORIDE 103 MMOL/L (98-107); CREATININE SERUM 0.97 MG/DL (0.60-1.30); GFR ESTIMATED > 60; GLUCOSE 131 MG/DL (70-105); POTASSIUM 4.3 MMOL/L (3.6-5.0); SODIUM 138 MMOL/L (135-145); TOTAL PROTEIN 7.6 GM/DL (6.4-8.2)
[2019-11-29 10:48] LABS: BASOPHILS % (AUTO) 1 % (0-10); EOSINOPHILS # (AUTO) 0.3 10^3/uL (0.0-0.3); EOSINOPHILS % (AUTO) 5 % (0-10); HEMATOCRIT 39 % (40-54); HEMOGLOBIN 12.4 G/DL (13.3-17.7); LYMPHOCYTES # (AUTO) 0.7 X 10^3 (1.0-4.0); LYMPHOCYTES % (AUTO) 13 % (12-44); MEAN CORPUSCULAR HEMOGLOBIN 30 PG (25-34); MEAN CORPUSCULAR HGB CONC 32 G/DL (32-36); MEAN CORPUSCULAR VOLUME 94 FL (80-99); MEAN PLATELET VOLUME 12.2 FL (7.4-10.4); MONOCYTES # (AUTO) 0.5 X 10^3 (0.0-1.0); MONOCYTES % (AUTO) 9 % (0-12); NEUTROPHILS # (AUTO) 3.7 X 10^3 (1.8-7.8); NEUTROPHILS % (AUTO) 71 % (42-75); PLATELET COUNT 127 10^3/uL (130-400); RED CELL DISTRIBUTION WIDTH 14.3 % (10.0-14.5); WHITE BLOOD COUNT 5.2 10^3/uL (4.3-11.0)
[2019-11-29 11:19] LABS: ALANINE AMINOTRANSFERASE 20 U/L (0-55); ALBUMIN 4.1 GM/DL (3.2-4.5); ALKALINE PHOSPHATASE 59 U/L (40-136); BILIRUBIN,TOTAL 0.5 MG/DL (0.1-1.0); BUN/CREATININE RATIO 21; CALCIUM 9.3 MG/DL (8.5-10.1); CARBON DIOXIDE 28 MMOL/L (21-32); CHLORIDE 102 MMOL/L (98-107); CREATININE SERUM 0.94 MG/DL (0.60-1.30); GFR ESTIMATED > 60; GLUCOSE 78 MG/DL (70-105); POTASSIUM 4.5 MMOL/L (3.6-5.0); SODIUM 137 MMOL/L (135-145); TOTAL PROTEIN 7.6 GM/DL (6.4-8.2)
[~2019-12-13 08:42] MED LIST changes: +DURVALUMAB 500 MG in NS (IVPB) CANCER CENTER 100 ML IV SCH; +NS IV 500 ML (CANCER CENTER) 500 ML IV SCH
== END 2019-12-21 | disposition home or self-care (01) ==
LOC: ONC 08:42
PROVIDERS: ATTEND Internal Medicine Hematology & Oncology
DX: Z51.11 Encounter for antineoplastic chemotherapy (principal); C34.11 Malignant neoplasm of upper lobe, right bronchus or lung; G47.33 Obstructive sleep apnea (adult) (pediatric); E78.5 Hyperlipidemia, unspecified; J43.9 Emphysema, unspecified; I49.5 Sick sinus syndrome; R19.09 Other intra-abdominal and pelvic swelling, mass and lump; Z79.01 Long term (current) use of anticoagulants; Z79.899 Other long term (current) drug therapy; Z87.01 Personal history of pneumonia (recurrent); Z85.46 Personal history of malignant neoplasm of prostate; Z95.0 Presence of cardiac pacemaker; Z90.79 Acquired absence of other genital organ(s); Z86.79 Personal history of other diseases of the circulatory system; Z98.890 Other specified postprocedural states
CPT/HCPCS: 80053; 84443; 85025; 96413; G0463; 36591

== ENCOUNTER → 2019-12-20 | Outpatient (CLI) | payer MEDICARE ==
[~2019-12-20] MED LIST changes: -DURVALUMAB 500 MG in NS (IVPB) CANCER CENTER 100 ML IV SCH; -NS IV 500 ML (CANCER CENTER) 500 ML IV SCH
--- NOTE | 2019-12-22 10:00 | Diagnostic Imaging Report ---
EXAM: PET/CT INDICATION: Lung cancer EXAMINATION: After intravenous administration of 15.05 mCi of F18-FDG into the left antecubital fossa, a series of overlapping emission and transmission PET images was obtained. In the coronal, transaxial and sagittal planes, the area imaged extended from the skull base through the upper thighs. Height: 5 feet, 5 inches. Weight: 118 cm Blood glucose level: 102 The previous PET/CT exam performed on 03/01/2019 is not available for direct comparison at this time. That study did note a right upper lobe mass with significant FDG avidity consistent with a primary bronchogenic carcinoma. The mass had a maximum SUV of 16.5. There were also hypermetabolic nodes in the right supraclavicular region, the mediastinum and the right hilum. On this exam, the mass in the right upper lobe has decreased in size and now measures 1.8 x 2.2 cm opposed to 3.2 x 4.5 cm on the prior exam. The mass is also much less hypermetabolic and the maximum SUV in this area is only 1.7. The right supraclavicular adenopathy seen previously is difficult to appreciate. There is a vague poorly defined linear area of increased metabolic activity in the soft tissues in the right supraclavicular region. This area has a maximum SUV of 4.7. This does not have the typical appearance of neoplastic disease and the CT images failed to show any sign of a discrete mass in this area. There is no hypermetabolic activity within the mediastinum or right hilum. The 2.1 cm pretracheal mass on the right seen previously now measures only 1.4 cm. The 1.6 cm nodule in the right infrahilar region is difficult to appreciate on the CT images of this exam. A small rim of fluid has developed along the medial aspect of the right lung base since the prior study. This measures only 0.9 cm in maximum depth. The severe chronic pulmonary changes seen previously are again evident. There is a vague amorphous area of slightly increased hypermetabolic activity in the paraspinal musculature on the right extending from the upper thoracic spine to the lower thoracic region. This has a maximum SUV of 1.8. This finding is of uncertain etiology but more likely due to muscular activity than to neoplastic disease. There is no other hypermetabolic activity seen to suggest malignancy. The previous exam did report an area of heterogeneous density about the right kidney measuring 3.1 x 1.9 cm. This did have a maximum SUV of 4.1. On this exam, that finding appears to have resolved. There is no acute abnormality evident on the CT images. IMPRESSION: 1. The appearance of the PET/CT exam has improved considerably since the prior study as the large mass in the right upper lobe has diminished in size and hypermetabolic activity. The right supraclavicular, mediastinum and hilar adenopathy noted previously have also essentially resolved. 2. The poorly defined area of hyperbolic activity extending through the right supraclavicular region is of uncertain etiology. This finding is unlikely to be neoplastic in nature. 3. The area of slightly altered hypermetabolic activity in the paraspinal musculature of the right thoracic region is more likely to be related to muscle activity than to neoplasm. 4. The small area of hypermetabolic activity along the inferior pole of the right kidney seen previously has resolved. 5. There is no acute abnormality of the chest, abdomen or pelvis noted although a small right pleural effusion has developed since the prior study. Dictated by: Dictated on workstation # [id number]
== END ==
LOC: RAD 08:15
PROVIDERS: ATTEND Nurse Practitioner Adult Health
DX: C34.11 Malignant neoplasm of upper lobe, right bronchus or lung (principal); J90 Pleural effusion, not elsewhere classified; Z92.3 Personal history of irradiation
CPT/HCPCS: 78815; A9552

== ENCOUNTER → 2020-02-15 | Outpatient (CLI) | payer MEDICARE | LOC: LABNPT 08:27 | PROVIDERS: ATTEND Internal Medicine Critical Care Medicine | DX: Z01.812 Encounter for preprocedural laboratory examination (principal); Z20.828 Contact with and (suspected) exposure to other viral communicable diseases | CPT/HCPCS: 87635 ==

== ENCOUNTER 2020-02-17 19:36 | Outpatient (CLI) | payer MEDICARE | END 2020-02-18 06:00 | disposition home or self-care (01) | LOC: SLEEP 19:36 | PROVIDERS: ATTEND Nurse Practitioner Family | DX: G47.33 Obstructive sleep apnea (adult) (pediatric) (principal); Z20.828 Contact with and (suspected) exposure to other viral communicable diseases | CPT/HCPCS: 95811 ==

== ENCOUNTER 2020-03-20 09:43 | Outpatient (RCR) | payer MEDICARE ==
[2019-12-27 09:24] LABS: BASOPHILS % (AUTO) 1 % (0-10); EOSINOPHILS # (AUTO) 0.2 10^3/uL (0.0-0.3); EOSINOPHILS % (AUTO) 4 % (0-10); HEMATOCRIT 40 % (40-54); HEMOGLOBIN 12.7 G/DL (13.3-17.7); LYMPHOCYTES # (AUTO) 0.6 X 10^3 (1.0-4.0); LYMPHOCYTES % (AUTO) 11 % (12-44); MEAN CORPUSCULAR HEMOGLOBIN 30 PG (25-34); MEAN CORPUSCULAR HGB CONC 32 G/DL (32-36); MEAN CORPUSCULAR VOLUME 93 FL (80-99); MEAN PLATELET VOLUME 11.8 FL (7.4-10.4); MONOCYTES # (AUTO) 0.7 X 10^3 (0.0-1.0); MONOCYTES % (AUTO) 13 % (0-12); NEUTROPHILS # (AUTO) 3.9 X 10^3 (1.8-7.8); NEUTROPHILS % (AUTO) 72 % (42-75); PLATELET COUNT 136 10^3/uL (130-400); WHITE BLOOD COUNT 5.5 10^3/uL (4.3-11.0)
[2019-12-27 09:47] LABS: ALANINE AMINOTRANSFERASE 19 U/L (0-55); ALKALINE PHOSPHATASE 69 U/L (40-136); BILIRUBIN,TOTAL 0.5 MG/DL (0.1-1.0); BUN/CREATININE RATIO 17; CALCIUM 9.2 MG/DL (8.5-10.1); CARBON DIOXIDE 28 MMOL/L (21-32); CHLORIDE 102 MMOL/L (98-107); CREATININE SERUM 1.03 MG/DL (0.60-1.30); GFR ESTIMATED > 60; GLUCOSE 120 MG/DL (70-105); POTASSIUM 4.2 MMOL/L (3.6-5.0); SODIUM 137 MMOL/L (135-145); TOTAL PROTEIN 7.6 GM/DL (6.4-8.2)
[2020-01-24 09:38] LABS: BASOPHILS % (AUTO) 1 % (0-10); EOSINOPHILS % (AUTO) 3 % (0-10); HEMATOCRIT 39 % (40-54); HEMOGLOBIN 12.6 g/dL (13.3-17.7); LYMPHOCYTES # (AUTO) 0.7 10^3/uL (1.0-4.0); LYMPHOCYTES % (AUTO) 9 % (12-44); MEAN CORPUSCULAR HEMOGLOBIN 30 pg (25-34); MEAN CORPUSCULAR HGB CONC 32 g/dL (32-36); MEAN CORPUSCULAR VOLUME 93 fL (80-99); MEAN PLATELET VOLUME 11.8 fL (9.0-12.2); MONOCYTES # (AUTO) 0.7 10^3/uL (0.0-1.0); MONOCYTES % (AUTO) 9 % (0-12); NEUTROPHILS % (AUTO) 78 % (42-75); PLATELET COUNT 156 10^3/uL (130-400); WHITE BLOOD COUNT 7.7 10^3/uL (4.3-11.0)
[2020-01-24 09:39] LABS: BASOPHILS # (AUTO) 0.1 10^3/uL (0.0-0.1); EOSINOPHILS # (AUTO) 0.3 10^3/uL (0.0-0.3)
[2020-01-24 09:54] LABS: ALANINE AMINOTRANSFERASE 18 U/L (0-55); ALKALINE PHOSPHATASE 74 U/L (40-136); BILIRUBIN,TOTAL 0.5 MG/DL (0.1-1.0); BUN/CREATININE RATIO 19; CALCIUM 9.2 MG/DL (8.5-10.1); CARBON DIOXIDE 25 MMOL/L (21-32); CHLORIDE 102 MMOL/L (98-107); CREATININE SERUM 0.94 MG/DL (0.60-1.30); GFR ESTIMATED > 60; GLUCOSE 137 MG/DL (70-105); POTASSIUM 4.4 MMOL/L (3.6-5.0); SODIUM 138 MMOL/L (135-145); TOTAL PROTEIN 7.5 GM/DL (6.4-8.2)
[2020-02-21 11:07] LABS: BASOPHILS # (AUTO) 0.1 10^3/uL (0.0-0.1); BASOPHILS % (AUTO) 1 % (0-10); EOSINOPHILS # (AUTO) 0.3 10^3/uL (0.0-0.3); EOSINOPHILS % (AUTO) 5 % (0-10); HEMATOCRIT 39 % (40-54); HEMOGLOBIN 12.1 g/dL (13.3-17.7); LYMPHOCYTES # (AUTO) 0.8 10^3/uL (1.0-4.0); LYMPHOCYTES % (AUTO) 13 % (12-44); MEAN CORPUSCULAR HEMOGLOBIN 29 pg (25-34); MEAN CORPUSCULAR HGB CONC 31 g/dL (32-36); MEAN CORPUSCULAR VOLUME 93 fL (80-99); MONOCYTES # (AUTO) 0.6 10^3/uL (0.0-1.0); MONOCYTES % (AUTO) 10 % (0-12); NEUTROPHILS # (AUTO) 4.4 10^3/uL (1.8-7.8); NEUTROPHILS % (AUTO) 71 % (42-75); PLATELET COUNT 142 10^3/uL (130-400); WHITE BLOOD COUNT 6.2 10^3/uL (4.3-11.0)
[2020-02-21 11:26] LABS: ALANINE AMINOTRANSFERASE 16 U/L (0-55); ALKALINE PHOSPHATASE 73 U/L (40-136); BILIRUBIN,TOTAL 0.5 MG/DL (0.1-1.0); BUN/CREATININE RATIO 21; CALCIUM 9.2 MG/DL (8.5-10.1); CARBON DIOXIDE 30 MMOL/L (21-32); CHLORIDE 102 MMOL/L (98-107); CREATININE SERUM 0.87 MG/DL (0.60-1.30); GFR ESTIMATED > 60; GLUCOSE 71 MG/DL (70-105); POTASSIUM 4.5 MMOL/L (3.6-5.0); SODIUM 139 MMOL/L (135-145); TOTAL PROTEIN 7.5 GM/DL (6.4-8.2)
[~2020-03-20 09:43] MED LIST changes: +DURVALUMAB 500 MG in NS (IVPB) CANCER CENTER 100 ML IV SCH; +NS IV 500 ML (CANCER CENTER) 500 ML IV SCH
[2020-03-20 10:02] LABS: BASOPHILS % (AUTO) 1 % (0-10); EOSINOPHILS # (AUTO) 0.4 10^3/uL (0.0-0.3); EOSINOPHILS % (AUTO) 6 % (0-10); HEMATOCRIT 41 % (40-54); HEMOGLOBIN 12.5 g/dL (13.3-17.7); LYMPHOCYTES # (AUTO) 0.7 10^3/uL (1.0-4.0); LYMPHOCYTES % (AUTO) 12 % (12-44); MEAN CORPUSCULAR HEMOGLOBIN 29 pg (25-34); MEAN CORPUSCULAR HGB CONC 31 g/dL (32-36); MEAN CORPUSCULAR VOLUME 95 fL (80-99); MEAN PLATELET VOLUME 11.8 fL (9.0-12.2); MONOCYTES # (AUTO) 0.6 10^3/uL (0.0-1.0); MONOCYTES % (AUTO) 9 % (0-12); NEUTROPHILS # (AUTO) 4.6 10^3/uL (1.8-7.8); NEUTROPHILS % (AUTO) 72 % (42-75); PLATELET COUNT 141 10^3/uL (130-400); WHITE BLOOD COUNT 6.4 10^3/uL (4.3-11.0)
[2020-03-20 10:21] LABS: ALANINE AMINOTRANSFERASE 19 U/L (0-55); ALKALINE PHOSPHATASE 81 U/L (40-136); BILIRUBIN,TOTAL 0.5 MG/DL (0.1-1.0); BUN/CREATININE RATIO 21; CALCIUM 9.1 MG/DL (8.5-10.1); CARBON DIOXIDE 28 MMOL/L (21-32); CHLORIDE 102 MMOL/L (98-107); GFR ESTIMATED > 60; GLUCOSE 129 MG/DL (70-105); POTASSIUM 4.1 MMOL/L (3.6-5.0); SODIUM 138 MMOL/L (135-145); TOTAL PROTEIN 7.5 GM/DL (6.4-8.2)
== END 2020-03-26 | disposition home or self-care (01) ==
LOC: ONC 09:43
PROVIDERS: ATTEND Internal Medicine Hematology & Oncology
DX: Z51.11 Encounter for antineoplastic chemotherapy (principal); C34.11 Malignant neoplasm of upper lobe, right bronchus or lung; G47.33 Obstructive sleep apnea (adult) (pediatric); E78.5 Hyperlipidemia, unspecified; J43.9 Emphysema, unspecified; I49.5 Sick sinus syndrome; R00.1 Bradycardia, unspecified; R19.09 Other intra-abdominal and pelvic swelling, mass and lump; Z79.01 Long term (current) use of anticoagulants; Z79.899 Other long term (current) drug therapy; Z87.01 Personal history of pneumonia (recurrent); Z85.46 Personal history of malignant neoplasm of prostate; Z95.0 Presence of cardiac pacemaker; Z90.79 Acquired absence of other genital organ(s); Z86.79 Personal history of other diseases of the circulatory system; Z98.890 Other specified postprocedural states
CPT/HCPCS: 80053; 84443; 85025; 96413; G0463; 36591

== ENCOUNTER 2020-04-17 09:50 | Outpatient (RCR) | payer MEDICARE ==
[2020-04-17 10:14] LABS: BASOPHILS # (AUTO) 0.1 10^3/uL (0.0-0.1); BASOPHILS % (AUTO) 1 % (0-10); EOSINOPHILS # (AUTO) 0.4 10^3/uL (0.0-0.3); EOSINOPHILS % (AUTO) 6 % (0-10); HEMATOCRIT 43 % (40-54); HEMOGLOBIN 13.2 g/dL (13.3-17.7); LYMPHOCYTES # (AUTO) 0.8 10^3/uL (1.0-4.0); LYMPHOCYTES % (AUTO) 13 % (12-44); MEAN CORPUSCULAR HEMOGLOBIN 29 pg (25-34); MEAN CORPUSCULAR HGB CONC 31 g/dL (32-36); MEAN CORPUSCULAR VOLUME 94 fL (80-99); MEAN PLATELET VOLUME 12.4 fL (9.0-12.2); MONOCYTES # (AUTO) 0.7 10^3/uL (0.0-1.0); MONOCYTES % (AUTO) 11 % (0-12); NEUTROPHILS # (AUTO) 4.5 10^3/uL (1.8-7.8); NEUTROPHILS % (AUTO) 69 % (42-75); PLATELET COUNT 138 10^3/uL (130-400); WHITE BLOOD COUNT 6.6 10^3/uL (4.3-11.0)
[2020-04-17 10:35] LABS: ALANINE AMINOTRANSFERASE 20 U/L (0-55); ALBUMIN 4.1 GM/DL (3.2-4.5); ALKALINE PHOSPHATASE 82 U/L (40-136); BILIRUBIN,TOTAL 0.5 MG/DL (0.1-1.0); BUN/CREATININE RATIO 23; CALCIUM 9.3 MG/DL (8.5-10.1); CARBON DIOXIDE 32 MMOL/L (21-32); CHLORIDE 102 MMOL/L (98-107); CREATININE SERUM 0.86 MG/DL (0.60-1.30); GFR ESTIMATED > 60; GLUCOSE 71 MG/DL (70-105); POTASSIUM 4.4 MMOL/L (3.6-5.0); SODIUM 137 MMOL/L (135-145); TOTAL PROTEIN 7.9 GM/DL (6.4-8.2)
== END 2020-05-01 08:49 | disposition home or self-care (01) ==
LOC: ONC 09:50
PROVIDERS: ATTEND Internal Medicine Hematology & Oncology
DX: Z51.11 Encounter for antineoplastic chemotherapy (principal); C34.11 Malignant neoplasm of upper lobe, right bronchus or lung; G47.33 Obstructive sleep apnea (adult) (pediatric); E78.5 Hyperlipidemia, unspecified; J43.9 Emphysema, unspecified; I49.5 Sick sinus syndrome; I48.0 Paroxysmal atrial fibrillation; I27.0 Primary pulmonary hypertension; R19.09 Other intra-abdominal and pelvic swelling, mass and lump; Z79.01 Long term (current) use of anticoagulants; Z79.899 Other long term (current) drug therapy; Z87.01 Personal history of pneumonia (recurrent); Z85.46 Personal history of malignant neoplasm of prostate; Z95.0 Presence of cardiac pacemaker; Z90.79 Acquired absence of other genital organ(s); Z86.79 Personal history of other diseases of the circulatory system; Z98.890 Other specified postprocedural states; Z92.21 Personal history of antineoplastic chemotherapy; Z92.3 Personal history of irradiation
CPT/HCPCS: 36591; 80053; 84443; 85025; 96413

== ENCOUNTER → 2020-05-10 | Outpatient (CLI) | payer MEDICARE ==
[~2020-05-10] MED LIST changes: +CATHETER FLUSH 10 ML SYR IV PRN; -DURVALUMAB 500 MG in NS (IVPB) CANCER CENTER 100 ML IV SCH; +HOLD METFORMIN - RECEIVED CONTRAST 20 ML VIAL IV SCH; +IOHEXOL 350 MG/ML 100 ML (OMNIPAQUE 350) VIAL IV ONE; +NS 100 ML (IVPB) BAG IV ONE; -NS IV 500 ML (CANCER CENTER) 500 ML IV SCH
[2020-05-10] MEDS: CATHETER FLUSH 10 ML SYR IV PRN ×2 (11:54→12:31)
--- NOTE | 2020-05-10 13:29 | Diagnostic Imaging Report ---
EXAMINATION: CT Chest and Abdomen with intravenous contrast. TECHNIQUE: Multiple contiguous axial images were obtained through the chest and abdomen after the uneventful administration of intravenous contrast. All CT scans use one or more of the following dose optimizing techniques: automated exposure control, MA and/or KvP adjustment based on a patient size and exam type, or iterative reconstruction. HISTORY: NEOPLASM OF UNSPECIFIED BEHAVIOR OF RESPIRATORY COMPARISON: PET/CT 12/20/2019, CT chest, abdomen and pelvis 09/02/2019. FINDINGS: Thyroid: The thyroid is normal. Mediastinum: Heart size is normal without significant pericardial effusion. Calcifications of the aorta and coronary vessels. Thoracic aorta is normal in caliber. No suspicious lymphadenopathy. Lungs and airways: Severe emphysematous changes of the lungs. Stable size of a 2.0 x 1.6 cm spiculated nodule within the right lung apex (series 2 image 7). No new consolidation, pleural effusion, or pneumothorax. Calcified granuloma within the left upper lobe. No new suspicious pulmonary lesion. Stable fibrosis of the medial right lower lobe. Linear atelectasis or scarring within the lung bases. The airways are normal. Solid organs: There is a focal area of arterial enhancement within hepatic segment III which is not seen on the delayed images and likely corresponds to shunting given its peripheral, wedge-shaped appearance. There is no biliary ductal dilation. Gallbladder is normal. Pancreas is normal. Spleen is normal. Adrenal glands are normal. Bilateral renal cortical hypodensities are unchanged, many of which are too small to characterize but the largest of which is compatible with a renal cyst. These require no follow-up. No hydronephrosis. Bowel: No bowel obstruction. Peritoneum: There is no intraperitoneal free fluid or free air. No suspicious lymphadenopathy. Vasculature: Calcification of the aorta without aneurysm. Musculoskeletal: Degenerative changes of the spine without suspicious osseous lesion or compression fracture. IMPRESSION: 1. Stable spiculated nodule within the right upper lobe compared to prior PET/CT from 12/20/2019. No new suspicious pulmonary lesion or other findings of metastatic disease within the chest or visualized abdomen. Dictated by: Dictated on workstation # [id number]
--- NOTE | 2020-05-10 16:25 | Diagnostic Imaging Report ---
INDICATION: History of lung CA. TECHNIQUE: 25 mCi tech-99m MDP was given IV. Three-hour delayed whole body imaging was obtained. FINDINGS: There is good uptake throughout the skeletal system. There is focal increased uptake along the AC joint of the right shoulder. No other foci of abnormal uptake are demonstrated. IMPRESSION: No abnormal uptake demonstrated to suggest metastatic disease. Findings consistent with degenerative change in the right AC joint. Dictated by: Dictated on workstation # [id number]
== END ==
LOC: CARD 12:00
PROVIDERS: ATTEND Nurse Practitioner Adult Health
DX: D49.1 Neoplasm of unspecified behavior of respiratory system (principal); R91.1 Solitary pulmonary nodule; M19.011 Primary osteoarthritis, right shoulder; Z85.118 Personal history of other malignant neoplasm of bronchus and lung
CPT/HCPCS: 71260; 74160; 78306; A9503

== ENCOUNTER 2020-07-24 09:18 | Outpatient (RCR) | payer MEDICARE ==
[2020-05-15 10:11] LABS: BASOPHILS % (AUTO) 1 % (0-10); EOSINOPHILS # (AUTO) 0.3 10^3/uL (0.0-0.3); EOSINOPHILS % (AUTO) 5 % (0-10); HEMATOCRIT 42 % (40-54); HEMOGLOBIN 13.1 g/dL (13.3-17.7); LYMPHOCYTES # (AUTO) 0.8 10^3/uL (1.0-4.0); LYMPHOCYTES % (AUTO) 14 % (12-44); MEAN CORPUSCULAR HEMOGLOBIN 29 pg (25-34); MEAN CORPUSCULAR HGB CONC 32 g/dL (32-36); MEAN CORPUSCULAR VOLUME 92 fL (80-99); MONOCYTES # (AUTO) 0.6 10^3/uL (0.0-1.0); MONOCYTES % (AUTO) 11 % (0-12); NEUTROPHILS # (AUTO) 3.9 10^3/uL (1.8-7.8); NEUTROPHILS % (AUTO) 70 % (42-75); PLATELET COUNT 125 10^3/uL (130-400); WHITE BLOOD COUNT 5.6 10^3/uL (4.3-11.0)
[2020-05-15 10:30] LABS: ALANINE AMINOTRANSFERASE 20 U/L (0-55); ALBUMIN 4.1 GM/DL (3.2-4.5); ALKALINE PHOSPHATASE 74 U/L (40-136); BILIRUBIN,TOTAL 0.6 MG/DL (0.1-1.0); BUN/CREATININE RATIO 18; CALCIUM 9.3 MG/DL (8.5-10.1); CARBON DIOXIDE 27 MMOL/L (21-32); CHLORIDE 100 MMOL/L (98-107); CREATININE SERUM 0.94 MG/DL (0.60-1.30); GFR ESTIMATED > 60; GLUCOSE 95 MG/DL (70-105); POTASSIUM 4.3 MMOL/L (3.6-5.0); SODIUM 138 MMOL/L (135-145); TOTAL PROTEIN 7.6 GM/DL (6.4-8.2)
[2020-06-12 09:41] LABS: BASOPHILS % (AUTO) 1 % (0-10); EOSINOPHILS # (AUTO) 0.3 10^3/uL (0.0-0.3); EOSINOPHILS % (AUTO) 7 % (0-10); HEMATOCRIT 41 % (40-54); HEMOGLOBIN 12.9 g/dL (13.3-17.7); LYMPHOCYTES # (AUTO) 0.7 10^3/uL (1.0-4.0); LYMPHOCYTES % (AUTO) 13 % (12-44); MEAN CORPUSCULAR HEMOGLOBIN 30 pg (25-34); MEAN CORPUSCULAR HGB CONC 32 g/dL (32-36); MEAN CORPUSCULAR VOLUME 94 fL (80-99); MEAN PLATELET VOLUME 12.4 fL (9.0-12.2); MONOCYTES # (AUTO) 0.5 10^3/uL (0.0-1.0); MONOCYTES % (AUTO) 11 % (0-12); NEUTROPHILS # (AUTO) 3.4 10^3/uL (1.8-7.8); NEUTROPHILS % (AUTO) 68 % (42-75); PLATELET COUNT 118 10^3/uL (130-400)
[2020-06-12 10:02] LABS: ALANINE AMINOTRANSFERASE 19 U/L (0-55); ALBUMIN 4.1 GM/DL (3.2-4.5); ALKALINE PHOSPHATASE 73 U/L (40-136); BILIRUBIN,TOTAL 0.5 MG/DL (0.1-1.0); BUN/CREATININE RATIO 18; CALCIUM 9.1 MG/DL (8.5-10.1); CARBON DIOXIDE 28 MMOL/L (21-32); CHLORIDE 102 MMOL/L (98-107); CREATININE SERUM 0.92 MG/DL (0.60-1.30); GFR ESTIMATED > 60; GLUCOSE 98 MG/DL (70-105); POTASSIUM 4.3 MMOL/L (3.6-5.0); SODIUM 138 MMOL/L (135-145); TOTAL PROTEIN 7.5 GM/DL (6.4-8.2)
[2020-07-10 10:00] LABS: BASOPHILS # (AUTO) 0.1 10^3/uL (0.0-0.1); BASOPHILS % (AUTO) 1 % (0-10); EOSINOPHILS # (AUTO) 0.4 10^3/uL (0.0-0.3); EOSINOPHILS % (AUTO) 5 % (0-10); HEMATOCRIT 41 % (40-54); HEMOGLOBIN 12.9 g/dL (13.3-17.7); LYMPHOCYTES # (AUTO) 0.6 10^3/uL (1.0-4.0); LYMPHOCYTES % (AUTO) 9 % (12-44); MEAN CORPUSCULAR HEMOGLOBIN 29 pg (25-34); MEAN CORPUSCULAR HGB CONC 31 g/dL (32-36); MEAN CORPUSCULAR VOLUME 94 fL (80-99); MEAN PLATELET VOLUME 11.9 fL (9.0-12.2); MONOCYTES # (AUTO) 0.7 10^3/uL (0.0-1.0); MONOCYTES % (AUTO) 10 % (0-12); NEUTROPHILS # (AUTO) 5.1 10^3/uL (1.8-7.8); NEUTROPHILS % (AUTO) 75 % (42-75); PLATELET COUNT 147 10^3/uL (130-400); WHITE BLOOD COUNT 6.8 10^3/uL (4.3-11.0)
[2020-07-10 10:21] LABS: ALANINE AMINOTRANSFERASE 17 U/L (0-55); ALBUMIN 3.9 GM/DL (3.2-4.5); ALKALINE PHOSPHATASE 88 U/L (40-136); BILIRUBIN,TOTAL 0.6 MG/DL (0.1-1.0); BUN/CREATININE RATIO 19; CALCIUM 9.2 MG/DL (8.5-10.1); CARBON DIOXIDE 27 MMOL/L (21-32); CHLORIDE 101 MMOL/L (98-107); CREATININE SERUM 0.86 MG/DL (0.60-1.30); GFR ESTIMATED > 60; GLUCOSE 126 MG/DL (70-105); POTASSIUM 4.2 MMOL/L (3.6-5.0); SODIUM 136 MMOL/L (135-145); TOTAL PROTEIN 7.5 GM/DL (6.4-8.2)
[~2020-07-24 09:18] MED LIST changes: -CATHETER FLUSH 10 ML SYR IV PRN; +DURVALUMAB 500 MG in NS (IVPB) CANCER CENTER 100 ML IV SCH; -HOLD METFORMIN - RECEIVED CONTRAST 20 ML VIAL IV SCH; -IOHEXOL 350 MG/ML 100 ML (OMNIPAQUE 350) VIAL IV ONE; -NS 100 ML (IVPB) BAG IV ONE; +NS IV 500 ML (CANCER CENTER) 500 ML IV SCH; +NS IV 500 ML (CANCER CENTER) 500 ML ONE
== END 2020-07-30 | disposition home or self-care (01) ==
LOC: ONC 09:18
PROVIDERS: ATTEND Internal Medicine Hematology & Oncology
DX: Z51.11 Encounter for antineoplastic chemotherapy (principal); C34.11 Malignant neoplasm of upper lobe, right bronchus or lung; G47.33 Obstructive sleep apnea (adult) (pediatric); E78.5 Hyperlipidemia, unspecified; J43.9 Emphysema, unspecified; I49.5 Sick sinus syndrome; I48.0 Paroxysmal atrial fibrillation; I27.0 Primary pulmonary hypertension; R19.09 Other intra-abdominal and pelvic swelling, mass and lump; Z79.01 Long term (current) use of anticoagulants; Z79.899 Other long term (current) drug therapy; Z87.01 Personal history of pneumonia (recurrent); Z85.46 Personal history of malignant neoplasm of prostate; Z95.0 Presence of cardiac pacemaker; Z90.79 Acquired absence of other genital organ(s); Z86.79 Personal history of other diseases of the circulatory system; Z98.890 Other specified postprocedural states; Z92.21 Personal history of antineoplastic chemotherapy; Z92.3 Personal history of irradiation
CPT/HCPCS: 36591; 80053; 84443; 85025; 96413

== ENCOUNTER → 2020-10-02 | Outpatient (CLI) | payer MEDICARE ==
[~2020-10-02] MED LIST changes: +CATHETER FLUSH 10 ML SYR IV PRN; -DURVALUMAB 500 MG in NS (IVPB) CANCER CENTER 100 ML IV SCH; +HOLD METFORMIN - RECEIVED CONTRAST 20 ML VIAL IV SCH; +IOHEXOL 350 MG/ML 100 ML (OMNIPAQUE 350) VIAL IV ONE; +NS 100 ML (IVPB) BAG IV ONE; -NS IV 500 ML (CANCER CENTER) 500 ML IV SCH; -NS IV 500 ML (CANCER CENTER) 500 ML ONE
--- NOTE | 2020-10-02 11:13 | Diagnostic Imaging Report ---
EXAMINATION: CT Chest and Abdomen with intravenous contrast. TECHNIQUE: Multiple contiguous axial images were obtained through the chest and abdomen after the uneventful administration of intravenous contrast. All CT scans use one or more of the following dose optimizing techniques: automated exposure control, MA and/or KvP adjustment based on a patient size and exam type, or iterative reconstruction. HISTORY: MALIGNANT NEOPLASM OF RIGHT UPPER LOBE COMPARISON: CT chest and abdomen from 05/10/2020. FINDINGS: Thyroid: The thyroid is normal. Mediastinum: Heart size is normal without significant pericardial effusion. Calcifications of the aorta and coronary vessels. Thoracic aorta is normal in caliber. Left-sided cardiac device is present. A right-sided port catheter is present. No suspicious lymphadenopathy. Lungs and airways: There are background emphysematous changes of both lungs. Stable nodular density within the right lung apex measuring 2.1 x 1.6 cm. Increasing pleural thickening or consolidation within the right perihilar region (series 2 image 27). There is a small right pleural effusion which has increased in size. Stable subcentimeter nodule within the right upper lobe (series 2 image 14). The airways are normal. Solid organs: Stable peripheral wedge-shaped arterial enhancement is seen within the left hepatic lobe, likely shunting. No new suspicious hepatic lesion. Gallbladder is normal. There is no biliary ductal dilation. Pancreas is normal. Spleen is normal. Adrenal glands are normal. The kidneys are normal without hydronephrosis. Bowel: No bowel obstruction. Peritoneum: There is no intraperitoneal free fluid or free air. No suspicious lymphadenopathy. Vasculature: Calcification of the aorta without aneurysm. Musculoskeletal: Degenerative changes of the spine without suspicious osseous lesion or acute compression fracture. IMPRESSION: 1. Stable nodular density within the right lung apex. 2. New perihilar consolidation or fibrosis is nonspecific but could be related to post-treatment changes. Attention on follow-up imaging. 3. No new findings of metastatic disease within the visualized abdomen. Dictated by: Dictated on workstation # [id number]
--- NOTE | 2020-10-02 18:36 | Diagnostic Imaging Report ---
INDICATION: Lung neoplasm. Patient was administered 25.4 mCi technetium 99m MDP intravenously and whole-body imaging was performed after a three-hour delay. Correlation is made with prior whole body bone scan from 05/10/2020. There is normal uptake of activity by axial and appendicular skeleton. There is normal uptake of activity by the kidneys with excretion into the urinary bladder. No suspicious foci are seen to suggest osseous metastatic disease. IMPRESSION: No scintigraphic evidence of osseous metastatic disease. Dictated by: Dictated on workstation # [id number]
== END ==
LOC: CARD 11:00
PROVIDERS: ATTEND Nurse Practitioner Adult Health
DX: C34.11 Malignant neoplasm of upper lobe, right bronchus or lung (principal)
CPT/HCPCS: 71260; 74160; 78306; A9503

== ENCOUNTER 2020-10-05 13:39 | Outpatient (RCR) | payer MEDICARE ==
[2020-08-07 09:10] LABS: BASOPHILS % (AUTO) 1 % (0-10); EOSINOPHILS # (AUTO) 0.4 10^3/uL (0.0-0.3); EOSINOPHILS % (AUTO) 7 % (0-10); HEMATOCRIT 43 % (40-54); HEMOGLOBIN 13.4 g/dL (13.3-17.7); LYMPHOCYTES # (AUTO) 0.7 10^3/uL (1.0-4.0); LYMPHOCYTES % (AUTO) 13 % (12-44); MEAN CORPUSCULAR HEMOGLOBIN 30 pg (25-34); MEAN CORPUSCULAR HGB CONC 31 g/dL (32-36); MEAN CORPUSCULAR VOLUME 95 fL (80-99); MEAN PLATELET VOLUME 12.2 fL (9.0-12.2); MONOCYTES # (AUTO) 0.6 10^3/uL (0.0-1.0); MONOCYTES % (AUTO) 10 % (0-12); NEUTROPHILS # (AUTO) 3.8 10^3/uL (1.8-7.8); NEUTROPHILS % (AUTO) 69 % (42-75); PLATELET COUNT 128 10^3/uL (130-400); WHITE BLOOD COUNT 5.5 10^3/uL (4.3-11.0)
[2020-08-07 09:28] LABS: ALANINE AMINOTRANSFERASE 23 U/L (0-55); ALKALINE PHOSPHATASE 81 U/L (40-136); BILIRUBIN,TOTAL 0.5 MG/DL (0.1-1.0); BUN/CREATININE RATIO 20; CALCIUM 9.1 MG/DL (8.5-10.1); CARBON DIOXIDE 24 MMOL/L (21-32); CHLORIDE 101 MMOL/L (98-107); CREATININE SERUM 0.93 MG/DL (0.60-1.30); GFR ESTIMATED > 60; GLUCOSE 143 MG/DL (70-105); POTASSIUM 4.1 MMOL/L (3.6-5.0); SODIUM 138 MMOL/L (135-145); TOTAL PROTEIN 7.4 GM/DL (6.4-8.2)
[2020-09-04 09:41] LABS: BASOPHILS # (AUTO) 0.1 10^3/uL (0.0-0.1); BASOPHILS % (AUTO) 1 % (0-10); EOSINOPHILS # (AUTO) 0.3 10^3/uL (0.0-0.3); EOSINOPHILS % (AUTO) 5 % (0-10); HEMATOCRIT 44 % (40-54); HEMOGLOBIN 13.9 g/dL (13.3-17.7); LYMPHOCYTES # (AUTO) 0.8 10^3/uL (1.0-4.0); LYMPHOCYTES % (AUTO) 14 % (12-44); MEAN CORPUSCULAR HEMOGLOBIN 30 pg (25-34); MEAN CORPUSCULAR HGB CONC 32 g/dL (32-36); MEAN CORPUSCULAR VOLUME 93 fL (80-99); MEAN PLATELET VOLUME 12.3 fL (9.0-12.2); MONOCYTES # (AUTO) 0.7 10^3/uL (0.0-1.0); MONOCYTES % (AUTO) 12 % (0-12); NEUTROPHILS # (AUTO) 3.8 10^3/uL (1.8-7.8); NEUTROPHILS % (AUTO) 68 % (42-75); PLATELET COUNT 115 10^3/uL (130-400); WHITE BLOOD COUNT 5.6 10^3/uL (4.3-11.0)
[2020-09-04 10:01] LABS: ALANINE AMINOTRANSFERASE 20 U/L (0-55); ALKALINE PHOSPHATASE 77 U/L (40-136); BILIRUBIN,TOTAL 0.5 MG/DL (0.1-1.0); BUN/CREATININE RATIO 21; CALCIUM 8.9 MG/DL (8.5-10.1); CARBON DIOXIDE 28 MMOL/L (21-32); CHLORIDE 100 MMOL/L (98-107); CREATININE SERUM 0.98 MG/DL (0.60-1.30); GFR ESTIMATED > 60; GLUCOSE 107 MG/DL (70-105); POTASSIUM 4.3 MMOL/L (3.6-5.0); SODIUM 137 MMOL/L (135-145); TOTAL PROTEIN 7.5 GM/DL (6.4-8.2)
[~2020-10-05 13:39] MED LIST changes: -CATHETER FLUSH 10 ML SYR IV PRN; +DURVALUMAB 500 MG in NS (IVPB) CANCER CENTER 100 ML IV SCH; -HOLD METFORMIN - RECEIVED CONTRAST 20 ML VIAL IV SCH; -IOHEXOL 350 MG/ML 100 ML (OMNIPAQUE 350) VIAL IV ONE; -NS 100 ML (IVPB) BAG IV ONE; +NS IV 500 ML (CANCER CENTER) 500 ML IV SCH
[2020-10-05 13:51] LABS: BASOPHILS % (AUTO) 1 % (0-10); EOSINOPHILS # (AUTO) 0.3 10^3/uL (0.0-0.3); EOSINOPHILS % (AUTO) 5 % (0-10); HEMATOCRIT 43 % (40-54); HEMOGLOBIN 13.5 g/dL (13.3-17.7); LYMPHOCYTES # (AUTO) 0.8 X 10^3 (1.0-4.0); LYMPHOCYTES % (AUTO) 12 % (12-44); MEAN CORPUSCULAR HEMOGLOBIN 30 pg (25-34); MEAN CORPUSCULAR HGB CONC 31 g/dL (32-36); MEAN CORPUSCULAR VOLUME 94 fL (80-99); MEAN PLATELET VOLUME 12.3 fL (9.0-12.2); MONOCYTES # (AUTO) 0.7 X 10^3 (0.0-1.0); MONOCYTES % (AUTO) 10 % (0-12); NEUTROPHILS % (AUTO) 74 % (42-75); PLATELET COUNT 154 10^3/uL (130-400); WHITE BLOOD COUNT 6.8 10^3/uL (4.3-11.0)
[2020-10-05 14:09] LABS: ALANINE AMINOTRANSFERASE 18 U/L (0-55); ALBUMIN 4.2 GM/DL (3.2-4.5); ALKALINE PHOSPHATASE 102 U/L (40-136); BILIRUBIN,TOTAL 0.6 MG/DL (0.1-1.0); BUN/CREATININE RATIO 17; CALCIUM 9.7 MG/DL (8.5-10.1); CARBON DIOXIDE 32 MMOL/L (21-32); CHLORIDE 98 MMOL/L (98-107); CREATININE SERUM 1.03 MG/DL (0.60-1.30); GFR ESTIMATED > 60; GLUCOSE 108 MG/DL (70-105); SODIUM 137 MMOL/L (135-145); TOTAL PROTEIN 8.3 GM/DL (6.4-8.2)
== END 2020-11-05 | disposition home or self-care (01) ==
LOC: ONC 13:39
PROVIDERS: ATTEND Internal Medicine Hematology & Oncology
DX: Z51.11 Encounter for antineoplastic chemotherapy (principal); C34.11 Malignant neoplasm of upper lobe, right bronchus or lung; G47.33 Obstructive sleep apnea (adult) (pediatric); E78.5 Hyperlipidemia, unspecified; J43.9 Emphysema, unspecified; I49.5 Sick sinus syndrome; I48.0 Paroxysmal atrial fibrillation; I27.0 Primary pulmonary hypertension; R19.09 Other intra-abdominal and pelvic swelling, mass and lump; Z79.01 Long term (current) use of anticoagulants; Z79.899 Other long term (current) drug therapy; Z87.01 Personal history of pneumonia (recurrent); Z85.46 Personal history of malignant neoplasm of prostate; Z95.0 Presence of cardiac pacemaker; Z90.79 Acquired absence of other genital organ(s); Z86.79 Personal history of other diseases of the circulatory system; Z98.890 Other specified postprocedural states; Z92.21 Personal history of antineoplastic chemotherapy; Z92.3 Personal history of irradiation
CPT/HCPCS: 80053; 84443; 85025; 96413; G0463; 36591; 99213

== ENCOUNTER 2021-01-22 10:00 | Day surgery (SDC) | payer MEDICARE ==
[2021-01-22] VITALS (9 sets, daily range): BP systolic 101–166; BP diastolic 59–125
[~2021-01-22] VITALS: Ht 165 cm; Wt 52.0 kg
[2021-01-22 08:38] LABS: HEMATOCRIT 42 % (40-54); HEMOGLOBIN 13.2 g/dL (13.3-17.7); MEAN CORPUSCULAR HEMOGLOBIN 30 pg (25-34); MEAN CORPUSCULAR HGB CONC 32 g/dL (32-36); MEAN CORPUSCULAR VOLUME 94 fL (80-99); MEAN PLATELET VOLUME 12.5 fL (9.0-12.2); PLATELET COUNT 142 10^3/uL (130-400)
[2021-01-22 09:07] LABS: ALBUMIN 4.1 GM/DL (3.2-4.5); BILIRUBIN,TOTAL 0.9 MG/DL (0.1-1.0); CALCIUM 9.8 MG/DL (8.5-10.1); CREATININE SERUM 0.9 MG/DL (0.60-1.30); TOTAL PROTEIN 8.1 GM/DL (6.4-8.2)
[~2021-01-22 10:00] MED LIST changes: +CHOL-34 PO; -DURVALUMAB 500 MG in NS (IVPB) CANCER CENTER 100 ML IV SCH; +FEXO180T84 PO; +HEParin (CATH LAB) 0 ML IV ONE; +LIDOCAINE 1% INJ 20 ML 20 ML VIAL ONE; +NS IV 1000 ML 1,000 ML IV SCH; +NS IV 1000 ML 1,000 ML ONE; -NS IV 500 ML (CANCER CENTER) 500 ML IV SCH; +PANT40TA52 PO; +ceFAZolin INJECTION 1,000 MG ONE; +ceFAZolin INJECTION 1,000 MG VIAL IV ONE
[2021-01-22] MEDS ORDERED: fentaNYL INJ 100 MCG/2 ML AMP ONE (10:07)
[2021-01-22] MEDS ORDERED: MIDAZOLAM 5 MG/5 ML (VERSED) VIAL ONE (10:07)
[2021-01-22] MEDS ORDERED: NS IV 1000 ML 1,000 ML ONE (10:42)
--- NOTE | 2021-01-22 11:21 | Cardiac Procedure Note-CS/ASA ---
Pre-Procedure Note Pre-Op Procedure Note H&P Reviewed The H&P was reviewed, patient examined and no changes noted. Date H&P Reviewed: Jan 22, 2021 Time H&P Reviewed: 10:40 Conscious Sedation Pre-Proced Time 10:40 ASA Score 3 For ASA 3 and 4: Consider anesthesia and medical clearance. Also, for patients with a history of failed moderate sedation consider anesthesia. Airway Lungs Heart ASA score ASA 1: a normal healthy patient ASA 2: a patient with a mild systemic disease (mid diabetes, controlled hypertension, obesity ASA 3: a patient with a severe systemic disease that limits activity (angina, COPD, prior Myocardial infarction) ASA 4: a patient with an incapacitating disease that is a constant threat to life (CHF, renal failure) ASA 5: a moribund patient not expected to survive 24 hrs. (ruptured aneurysm) ASA 6: a declared brain- patient whose organs are being harvested. For emergent operations, add the letter E after the classification Mallampati Classification Grade 2 Sedation Plan Analgesia, Amnesia, Plan communicated to team members, Discussed options with patient/fam, Discussed risks with patient/fam The patient is an appropriate candidate to undergo the planned procedure, sedation, and anesthesia. The patient immediately re-assessed prior to indication. MAXIMILIANO CRAIG MD FACP FAC CCDS Jan 22, 2021 11:21
[2021-01-22] MEDS ORDERED: CEFU250T80 PO (11:24)
[2021-01-22] MEDS ORDERED: ACET325T38 PO (11:25)
--- NOTE | 2021-01-22 11:27 | Discharge Inst-Cardiology ---
Discharge Inst-Cardiac Discharge Medications New Medications: Acetaminophen (Tylenol) 325 Mg Tablet 325 MG PO Q6H PRN for PAIN-MODERATE (5-7), #60 TAB Cefuroxime Axetil (Cefuroxime) 250 Mg Tablet 250 MG PO BID, #10 TAB Continued Medications: Bicalutamide (Bicalutamide) 50 Mg Tablet 50 MG PO DAILY, TAB Cholecalciferol (Vitamin D3) (Vitamin D3) 25 Mcg Tablet 25 MCG PO DAILY, TAB Cyanocobalamin (Cyanocobalamin Injection) 1,000 Mcg/Ml Inj 1000 MCG IJ MONTHLY, VIAL Dabigatran Etexilate Mesylate (Pradaxa) 150 Mg Capsule 150 MG PO BID, CAP Fexofenadine HCl (Pilar Allergy) 180 Mg Tablet 180 MG PO DAILY, TAB Pantoprazole Sodium (Pantoprazole Sodium) 40 Mg Tablet.dr 40 MG PO DAILY, TAB Pravastatin Sodium (Pravastatin Sodium) 10 Mg Tablet 10 MG PO HS, TAB MAXIMILIANO CRAIG MD FACP FAC CCDS Jan 22, 2021 11:27
--- NOTE | 2021-01-22 11:27 | Discharge Inst-Post Device ---
Discharge Inst-Post Device Follow up/Plan F/u for wound check at Dr Stanley'kyle on 01/25/21 F/u for doctor visit at Dr Stanley'kyle in one month Heart Healthy Diet Do not push and pull heavy objects for 4 weeks. Activity as tolerated. Leave dressing on until follow up at the office. MAXIMILIANO STANLEY MD FACP FAC CCDS Jan 22, 2021 11:27
[2021-01-22] MEDS ORDERED: PATIENT MAY USE OWN MEDS, ALL PO SCH (11:30)
[2021-01-22] MEDS ORDERED: NS IV 1000 ML 1,000 ML IV SCH (11:30)
--- NOTE | 2021-01-22 14:52 | Diagnostic Imaging Report ---
EXAMINATION: Chest 1 view HISTORY: S/P pulse generator change COMPARISON: 03/24/2019 FINDINGS: Heart size and pulmonary vasculature are normal. Demonstrate likely a prominent bulla within the right lower lobe. Background emphysematous changes of the lungs. No pneumothorax is seen. Minimal blunting of the right costophrenic angle, likely a small pleural effusion. Right-sided port catheter is present. Left-sided cardiac device is present. There are calcifications of the aorta. The osseous structures are intact. IMPRESSION: 1. Stable background emphysematous changes of the lungs without other acute abnormality in the chest. Dictated by: Dictated on workstation # [id number]
--- NOTE | 2021-01-22 17:16 | OPERATIVE REPORT ---
DATE OF SERVICE: 01/22/2021 PREOPERATIVE DIAGNOSIS: Dual chamber pacemaker at elective replacement indicator. POSTOPERATIVE DIAGNOSIS: Dual chamber pacemaker at elective replacement indicator. PROCEDURE: Pulse generator change. 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 It reached elective replacement indicator recently and pulse generator change was carried out today after having obtained an informed consent. DESCRIPTION OF PROCEDURE: [facility] The left prepectoral area, the site of previous pacemaker implantation, was prepared and draped in the usual sterile fashion. Lidocaine 1% was used for local anesthesia. Sharp and blunt dissection was used to open the pacemaker pocket and the pacemaker was removed from the pocket and detached from the leads. A new pulse generator was then attached to the leads and the leads and the pacemaker were placed in the pocket and the pocket was closed in 2 layers using 3.0 Vicryl. He tolerated the procedure well. The device that was removed is Medtronic model A2DR01 with serial #[id number]. The device implanted is Medtronic model W1DR01 with serial #[id number]. The device was found to be functioning normally. P waves are measured at 2.1 millivolts. R waves are measured at 10 millivolts. Atrial pacing impedance is 470 ohms. Ventricular lead impedance is 446 ohms. Atrial capture threshold is 0.5 volts at 0.4 milliseconds. Ventricular capture threshold was 0.5 volts at 0.4 milliseconds. Job ID: [id number] DocumentID: [id number] Dictated Date: 01/22/2021 11:32:13 Data Modeling Specialist Date: 01/22/2021 17:14:14 Dictated By: MAXIMILIANO CRAIG MD, MA, FACP, FACC,
== END 2021-01-22 14:35 | disposition home or self-care (01) ==
LOC: CATH 10:00
PROVIDERS: ATTEND Internal Medicine Cardiovascular Disease
DX: Z45.010 Encounter for checking and testing of cardiac pacemaker pulse generator [battery] (principal); I48.0 Paroxysmal atrial fibrillation; I49.5 Sick sinus syndrome; I10 Essential (primary) hypertension; I27.21 Secondary pulmonary arterial hypertension; I34.0 Nonrheumatic mitral (valve) insufficiency; I65.23 Occlusion and stenosis of bilateral carotid arteries; G47.33 Obstructive sleep apnea (adult) (pediatric); E78.2 Mixed hyperlipidemia; Z99.89 Dependence on other enabling machines and devices; Z79.01 Long term (current) use of anticoagulants; Z79.899 Other long term (current) drug therapy
CPT/HCPCS: 33228; 71045; 80053; 80061; 85027; 85610; 85730; 87081; C1785; 36415

== ENCOUNTER → 2021-03-01 | Outpatient (CLI) | payer MEDICARE ==
[~2021-03-01] MED LIST changes: +CATHETER FLUSH 10 ML SYR IV PRN; +CEFU250T80 PO; -HEParin (CATH LAB) 0 ML IV ONE; +HOLD METFORMIN - RECEIVED CONTRAST 20 ML VIAL IV SCH; +IOHEXOL 350 MG/ML 100 ML (OMNIPAQUE 350) VIAL IV ONE; -LIDOCAINE 1% INJ 20 ML 20 ML VIAL ONE; +NS 100 ML (IVPB) BAG IV ONE; -NS IV 1000 ML 1,000 ML IV SCH; -NS IV 1000 ML 1,000 ML ONE; -ceFAZolin INJECTION 1,000 MG ONE; -ceFAZolin INJECTION 1,000 MG VIAL IV ONE
--- NOTE | 2021-03-01 14:35 | Diagnostic Imaging Report ---
PROCEDURE: CT chest and abdomen with contrast. TECHNIQUE: Multiple contiguous axial images were obtained through the chest and abdomen after the administration of intravenous contrast. Auto Exposure Controls were utilized during the CT exam to meet ALARA standards for radiation dose reduction. 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 COMPARISON: 10/02/2020 and 05/10/2020. FINDINGS: Right-sided Port-A-Cath is again identified and stable. Pacer device is again noted with a battery pack overlying the left chest. No significant adenopathy within the chest. No aneurysmal dilatation of the thoracic aorta. Moderate scattered vascular calcifications, including within the coronary arteries. The heart is within normal limits in size. No pericardial effusion. No left-sided pleural effusion. Small right-sided pleural effusion, minimally increased since the prior examination. Irregular nodular density within the right lung apex is again identified. This measures 2.1 x 1.6 cm, not significantly changed since prior imaging. Slightly increasing interstitial opacities are noted within the medial aspect of the right lung with a linear margin. Moderate background emphysematous changes. No pneumothorax. Calcified granuloma within the left upper lobe. 0.3 cm right upper lobe pulmonary nodule, unchanged since April 2020. No new focal pulmonary nodule. The trachea is patent. Anterior wedging and Schmorl's nodes of L1 are again identified and stable. Scattered osseous degenerative changes. No acute osseous abnormality within the chest. The liver is unremarkable. The spleen is unremarkable. The adrenal glands are unremarkable. Left renal cyst. Additional left renal hypodensities are present which are too small to completely characterize. No evidence of hydronephrosis. Advanced vascular calcifications within the abdominal aorta and its branch vessels without aneurysmal dilatation of the abdominal aorta. No evidence of bowel obstruction within the [id number]. Significant amount of stool within the colon. No significant adenopathy, free air, or free fluid within the abdomen. Scattered osseous degenerative changes without acute osseous abnormality. IMPRESSION: Increasing linear reticular opacities within the medial aspect of the right lung in a linear distribution are felt to relate to post-radiation changes. Stable irregular nodular density within the right lung apex, unchanged since at least April 2020. No new suspicious pulmonary nodule with moderate background emphysematous changes present. The abdomen appears stable without acute abnormality or evidence of metastatic disease. Slightly increased small right basilar pleural effusion. Dictated by: Dictated on workstation # [id number]
--- NOTE | 2021-03-01 14:36 | Diagnostic Imaging Report ---
INDICATION: Cancer of the lung. COMPARISON: 10/02/2020. TECHNIQUE: 26 mCi technetium-99m MDP was given IV. Three-hour delayed whole body imaging was obtained. FINDINGS: There is good uptake throughout the skeletal system. There are no abnormal areas of uptake that have developed that would suggest metastatic disease. There is slight increased activity within the right AC joint. IMPRESSION: No appreciable change has occurred since the previous exam. Dictated by: Dictated on workstation # [id number]
== END ==
LOC: CARD 10:31
PROVIDERS: ATTEND Nurse Practitioner Adult Health
DX: J90 Pleural effusion, not elsewhere classified (principal); J98.4 Other disorders of lung; R91.8 Other nonspecific abnormal finding of lung field; Z85.118 Personal history of other malignant neoplasm of bronchus and lung
CPT/HCPCS: 71260; 74160; 78306; A9503

== ENCOUNTER 2021-03-04 14:49 | Outpatient (RCR) | payer MEDICARE ==
[2020-12-06 14:08] LABS: HEMOGLOBIN 12.7 g/dL (13.3-17.7); MEAN CORPUSCULAR HEMOGLOBIN 30 pg (25-34); MEAN CORPUSCULAR VOLUME 93 fL (80-99); WHITE BLOOD COUNT 5.4 10^3/uL (4.3-11.0)
[2020-12-06 14:10] LABS: BASOPHILS % (AUTO) 1 % (0-10); EOSINOPHILS # (AUTO) 0.3 10^3/uL (0.0-0.3); EOSINOPHILS % (AUTO) 6 % (0-10); HEMATOCRIT 40 % (40-54); LYMPHOCYTES # (AUTO) 0.8 10^3/uL (1.0-4.0); LYMPHOCYTES % (AUTO) 15 % (12-44); MEAN CORPUSCULAR HGB CONC 32 g/dL (32-36); MEAN PLATELET VOLUME 12.7 fL (9.0-12.2); MONOCYTES # (AUTO) 0.5 10^3/uL (0.0-1.0); MONOCYTES % (AUTO) 10 % (0-12); NEUTROPHILS # (AUTO) 3.7 10^3/uL (1.8-7.8); NEUTROPHILS % (AUTO) 69 % (42-75); PLATELET COUNT 118 10^3/uL (130-400)
[2020-12-06 14:28] LABS: ALBUMIN 3.8 GM/DL (3.2-4.5); BILIRUBIN,TOTAL 0.6 MG/DL (0.1-1.0); CALCIUM 9.3 MG/DL (8.5-10.1); CREATININE SERUM 0.95 MG/DL (0.60-1.30); POTASSIUM 4.2 MMOL/L (3.6-5.0); TOTAL PROTEIN 7.6 GM/DL (6.4-8.2)
[2021-03-01 10:29] LABS: BASOPHILS # (AUTO) 0.1 10^3/uL (0.0-0.1); BASOPHILS % (AUTO) 1 % (0-10); EOSINOPHILS # (AUTO) 0.3 10^3/uL (0.0-0.3); EOSINOPHILS % (AUTO) 6 % (0-10); HEMATOCRIT 42 % (40-54); HEMOGLOBIN 13.4 g/dL (13.3-17.7); LYMPHOCYTES # (AUTO) 0.9 10^3/uL (1.0-4.0); LYMPHOCYTES % (AUTO) 16 % (12-44); MEAN CORPUSCULAR HEMOGLOBIN 30 pg (25-34); MEAN CORPUSCULAR HGB CONC 32 g/dL (32-36); MEAN CORPUSCULAR VOLUME 94 fL (80-99); MEAN PLATELET VOLUME 11.5 fL (9.0-12.2); MONOCYTES # (AUTO) 0.6 10^3/uL (0.0-1.0); MONOCYTES % (AUTO) 10 % (0-12); NEUTROPHILS # (AUTO) 3.9 10^3/uL (1.8-7.8); NEUTROPHILS % (AUTO) 68 % (42-75); PLATELET COUNT 131 10^3/uL (130-400); WHITE BLOOD COUNT 5.7 10^3/uL (4.3-11.0)
[2021-03-01 11:08] LABS: ALBUMIN 4.1 GM/DL (3.2-4.5); BILIRUBIN,TOTAL 0.6 MG/DL (0.1-1.0); CALCIUM 9.5 MG/DL (8.5-10.1); CREATININE SERUM 0.89 MG/DL (0.60-1.30); POTASSIUM 4.5 MMOL/L (3.6-5.0); TOTAL PROTEIN 7.7 GM/DL (6.4-8.2)
[~2021-03-04 14:49] MED LIST changes: -CATHETER FLUSH 10 ML SYR IV PRN; -HOLD METFORMIN - RECEIVED CONTRAST 20 ML VIAL IV SCH; -IOHEXOL 350 MG/ML 100 ML (OMNIPAQUE 350) VIAL IV ONE; -NS 100 ML (IVPB) BAG IV ONE
== END 2021-03-06 | disposition home or self-care (01) ==
LOC: ONC 14:49
PROVIDERS: ATTEND Internal Medicine Hematology & Oncology
DX: C34.11 Malignant neoplasm of upper lobe, right bronchus or lung (principal); G47.33 Obstructive sleep apnea (adult) (pediatric); E78.5 Hyperlipidemia, unspecified; J43.9 Emphysema, unspecified; R19.09 Other intra-abdominal and pelvic swelling, mass and lump; Z85.46 Personal history of malignant neoplasm of prostate; Z95.0 Presence of cardiac pacemaker; Z90.79 Acquired absence of other genital organ(s); Z86.79 Personal history of other diseases of the circulatory system; Z92.3 Personal history of irradiation
CPT/HCPCS: 80053; 85025; G0463; 36591; 84443; 99213

== ENCOUNTER → 2022-08-06 | Outpatient (CLI) | payer MEDICARE | LOC: CARD 08:05 | PROVIDERS: ATTEND Internal Medicine Cardiovascular Disease | DX: I07.1 Rheumatic tricuspid insufficiency (principal); I27.20 Pulmonary hypertension, unspecified | CPT/HCPCS: 93306 ==